=== PATIENT | female | born 1935 | race African-American/Black ===

== ENCOUNTER 2021-12-23 22:40 | Inpatient (IN) | payer MEDICARE ==
[~2021-12-23] VITALS: Ht 154.9 cm; Wt 76.8 kg
[~2021-12-23 22:40] MED LIST: ASCO500T4 PO; ASPI325T8 PO; CARV25TA2 PO; NIFE60TA14 PO; UBID200C30 PO; VALS320T2 PO
[2021-12-23 22:45] VITALS: BP 143/77
[2021-12-24] MEDS ORDERED: PANT40TA77 PO (01:20)
[2021-12-24] MEDS ORDERED: SUCR1TAB35 PO (01:20)
[2021-12-24] MEDS ORDERED: FERR325T14 PO (01:20)
[2021-12-24] MEDS ORDERED: ISOS30TA68 PO (01:22)
[2021-12-24 03:20] VITALS: BP 150/68
[2021-12-24 07:37] VITALS: BP 153/68
--- NOTE | 2021-12-24 08:59 | PDOC1 ---
History and Physical Date of Service: DOS: DATE: 12/24/21 TIME: 08:59 Chief Complaint: Chief Complain: Lower extremity swelling History of Present Illness: HPI: 86-year-old female with past medical history significant for CAD, hypertension, PE and recent sepsis for what seems to be an abdominal abscess. She is transferred from [facility] for bilateral lower extremity swelling. Apparently patient went to and had a drain placed for her abdominal abscess. She does report abdominal tenderness and tightness. She was receiving IV antibiotics as well. Patient is a poor historian. No family member at bedside at this time. According to chart review from [facility] family but was stated that patient was not able to urinate since returning home. No history of CHF but we are consulting cardiology for this reason. Currently only complains of lower extremity swelling and some lower extremity pain. Denies fevers, shortness of breath, dysuria, constipation or syncope. Past Medical/Surgical History: PMH/PSH: Past medical history: CAD, hypertension, MD, PE, recent sepsis with abdominal drain placement for abdominal abscess. Past surgical history: Pacemaker placement, cardiac stent, right knee surgery Allergies: Allergies: Coded Allergies: ceftriaxone (Verified Allergy, Intermediate, Rash, 12/24/21) Family History: Family History: Reviewed with no relevant findings in the chart Social History: Social History: Denies alcohol, tobacco or drug abuse. Current Medications: Current Medications Current Medications Influenza Virus Vaccine Quadrival (Flulaval Quad [id number] Syringe) 0.5 ml ONCE ONCE VAX IM ; Start 12/24/21 at 09:00; Stop 12/24/21 at 09:01 Active Scripts Active Reported Isosorbide Mononitrate Er (Isosorbide Mononitrate) 30 Mg Tab.er.24h 1 Tab PO DAILY Protonix (Pantoprazole Sodium) 40 Mg Tablet.dr 40 Mg PO DAILYAC Carafate (Sucralfate) 1 Gm Tablet 1 Tab PO QIDACHS 30 Days Ferrous Sulfate 325 Mg Tablet 1 Tab PO DAILY 60 Days Coenzyme Q10 (Ubidecarenone) 200 Mg Capsule 200 Mg PO DAILY Nifedipine Er (Nifedipine) 60 Mg Tablet.er 60 Mg PO DAILY Carvedilol 25 Mg Tablet 25 Mg PO BID AC ROS: Review of Systems Review of System REVIEW OF SYSTEMS: GENERAL: Denies weakness SKIN: No bruising, hair changes or rashes. EYES: No blurred, double or loss of vision. NOSE AND THROAT: No history of nosebleeds, hoarseness or sore throat. HEART: No history of palpitations, chest pain or shortness of breath on exertion. LUNGS: Denies cough, hemoptysis, wheezing or shortness of breath. GASTROINTESTINAL: Denies changes in appetite, nausea, vomiting, diarrhea or constipation. GENITOURINARY: No history of frequency, urgency, hesitancy or nocturia. NEUROLOGIC: Denies history of numbness, tingling, or tremor. PSYCHIATRIC: No history of panic, anxiety or depression. ENDOCRINE: No history of heat or cold intolerance, polyuria or polydipsia. EXTREMITIES: Denies joint pain, pain on walking or stiffness. Physical Exam: Vital Signs: Vital Signs Date Time Temp Pulse Resp B/P (MAP) Pulse Ox O2 Delivery O2 Flow Rate FiO2 12/24/21 07:37 98.0 77 18 153/68 (96) 95 Room Air 98.0 Physcial Exam: General: Well developed, well nourished, no acute distress, well appearing HEENT: Pupils equally round and reactive to light, EOMI, no discharge, normal conjunctiva Neck: Supple, no nuchal rigidity, no JVD, trachea midline, no tenderness Cardiac: RRR, no murmurs, no gallops, no rubs Chest/Lungs: CTAB, no wheeze, no rhonchi, no crackles Abdomen: soft, non-distended, no guarding, no peritoneal signs, non-tender Back: No tenderness Extremities: +2 pedal edema in right lower extremity, pulses intact, right lower extremity tenderness and erythema,capillary refill <3 sec bilateral upper and lower extremities, Neuro: Alert and oriented x 4, no focal deficits, normal speech Labs: Labs: Labs reviewed from [facility] significant for creatinine of 1.1, sodium 137, potassium 4.2, BNP at 2273 Images: Images No recent imagings seen in the chart Assessment/Plan Assessment/Plan Acute volume overload of unclear etiology, elevated BNP Abdominal abscess status post abdominal drain Right lower extremity swelling and cellulitis History of hypertension History of PE Admit to hospitalist service for further management Cardiology consult Continue empiric IV antibiotics Pending DVT ultrasound of the right lower extremity Strict I's/O Lovenox for DVT prophylaxis Cardiac diet CODE STATUS assumed full code Discussed with RN and SW Disposition inpatient management as above DPOA: Granddaughter Justifications for Admission Other Justification JYOTI INTERIANO MD Dec 24, 2021 08:59
[2021-12-24] MEDS ORDERED: FLU VACC QUAD 21-22 (6MOS+) PF 0.5 ML SYRINGE. VAX IM ONE (09:00)
[2021-12-24 10:13] VITALS: BP 162/74
--- NOTE | 2021-12-24 11:18 | PDOC2 ---
CARDIAC CONSULT DATE OF CONSULT Date of Consult DATE: 12/24/21 TIME: 11:16 REASON FOR CONSULT Reason for Consult: CHF REFERRING PHYSICIAN Referring Physician: Dr. Mortensen SOURCE Source: Chart review, Patient HISTORY OF PRESENT ILLNESS HISTORY OF PRESENT ILLNESS This is an 86 yo female who presented to [facility] secondary to bila teral LE edema, tightness. 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 Patient was noted with sepsis, bacteremia secondary to iliopsoas abscess in setting of bowel perforation due to cecal mass. Underwent OSKAR drain placement. 4 week treatment with Unasyn recommended. She was also noted with bilateral PE, DVT; noted ; recent discharge summary noted with Lovenox 60mg BID. Was also noted to be COVID-19 + on 11/27/21. Was asymptomatic. Has a history of CAD s/p CABG and SSs s/p PPM. Recent device check noted with RA lead dislodgement. Fortunately, patient was not requiring pacing. Patient reports development of LE edema over the last week. She denies any chest pain, palpitations, dizziness, diaphoresis, or nausea/vomiting. Recent echo showed preserved LV systolic function. PAST MEDICAL HISTORY Cardiovascular: CAD, CHF, HTN GI: GERD Heme/Onc: Other (PE/DVT, cecal mass) PAST SURGICAL HISTORY Past Surgical History: Pacemaker, CABG, Total knee replacement (right ) FAMILY HISTORY Family History: Hypertension SOCIAL HISTORY Smoke: No ALCOHOL: none Drugs: None Lives: Alone ALLERGIES ALLERGIES: Coded Allergies: ceftriaxone (Verified Allergy, Intermediate, Rash, 12/24/21) ROS Review of System 14 point ROS conducted with pertinent positives noted above in HPI PHYSICAL EXAM General: Alert, Oriented X3, Cooperative, No acute distress HEENT: Atraumatic Lungs: Clear to auscultation Heart: Regular rate Abdomen: Soft, No tenderness Extremities: Other (2+ bilateral LE edema ) Skin: No significant lesion Neuro: Normal speech, Sensation intact Psych/Mental Status: Mental status NL, Mood NL MUSCULOSKELETAL: Osteoarthritic changes both hands VITALS/I&O VITALS/I&O: Vital Signs Date Time Temp Pulse Resp B/P (MAP) Pulse Ox O2 Delivery O2 Flow Rate FiO2 12/24/21 10:13 98.1 74 18 162/74 (103) 99 98.1 12/24/21 08:00 Room Air I & O 12/23/21 12/23/21 12/24/21 15:00 23:00 07:00 Intake Total 0 ml Output Total 1100 ml Balance -1100 ml ECHOCARDIOGRAM ECHOCARDIOGRAM 11/28/21 - 2D + DOPPLER ECHO Interpretation Summary The left ventricle is mildly dilated. Predominantly basal septal hypertrophy, but there is mild hypertrophy throughout the left ventricle. The left ventricular systolic function is normal. The visually estimated ejection fraction is 65%. Right ventricular function is not well assessed in this study. There is non-specific thickening of the aortic valve. There is moderate regurgitation. No evidence of stenosis. No obvious mobile vegetation. No pericardial effusion. No previous ECHO for comparison. ASSESSMENT/PLAN ASSESSMENT/PLAN 1. Acute on chronic diastolic CHF; recent echo with preserved LV systolic function as noted above. s/p IV Lasix 2. CAD s/p CABG 2007. clinically stable 3. SSS s/p PPM (Medtronic); device check 11/28/21 with dislodged RA lead. Device reprogrammed to VVI. Outpatient follow up with primary cask maker recommended. Follows with 4. Hypertension; controlled overall 5. Hyperlipidemia; statin 6. Recent COVID-19; + 11/27/21 7. Bilateral PE, DVT; noted 11/28/21; recent discharge summary noted with Lovenox 60mg BID 8. 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 Recent sepsis, bacteremia secondary to iliopsoas abscess in setting of bowel perforation due to cecal mass. s/p OSKAR drain placement. 4 week treatment with Unasyn recommended 10. Hypomagnesemia Recommendations Diuresis with monitoring of renal function Replace Mg Resume secondary prevention Lovenox therapy Supportive care MARIAH RO APRN Dec 24, 2021 11:18
--- NOTE | 2021-12-24 11:35 | NUR ---
SS following for discharge planning. SS reviewed pt chart and discussed with pt RN. Pt is from home and is currently on room air. Cardiology and Wound Care consulted. SS will continue to follow for discharge planning.
[2021-12-24] MEDS ORDERED: MORPHINE SULFATE 2 MG/ML INJ. IVP PRN (14:15)
[2021-12-24] MEDS ORDERED: ZOLPIDEM 5 MG TABLET. PO PRN (14:15)
[2021-12-24] MEDS ORDERED: DOCUSATE SODIUM 100 MG CAPSULE. PO PRN (14:15)
[2021-12-24] MEDS ORDERED: DEXTROSE 50% 25 GM / 50ML DISP.SYRIN. IV PRN (14:15)
[2021-12-24] MEDS ORDERED: SENNOSIDES 8.6 MG TABLET PO PRN (14:15)
[2021-12-24] MEDS ORDERED: ONDANSETRON PF 4 MG/2 ML VIAL. IVP PRN (14:15)
[2021-12-24] MEDS ORDERED: oxyCODONE/APAP 5/325 1 TAB TABLET PO PRN (14:15)
[2021-12-24] MEDS ORDERED: diphenhydrAMINE HCL 25 MG CAPSULE PO PRN ×2 (14:15)
[2021-12-24] MEDS ORDERED: MORPHINE SULFATE 2 MG/ML INJ. IV PRN (14:15)
[2021-12-24] MEDS ORDERED: PROCHLORPERAZINE 10 MG/2 ML VIAL. IV PRN (14:15)
[2021-12-24] MEDS ORDERED: diphenhydrAMINE 50 MG/ML VIAL IVP PRN (14:15)
[2021-12-24] MEDS ORDERED: LORazepam 0.5 MG TABLET PO PRN (14:15)
[2021-12-24] MEDS ORDERED: ACETAMINOPHEN 325 MG TABLET. PO PRN (14:15)
[2021-12-24 14:24] VITALS: BP 144/65
--- NOTE | 2021-12-24 15:19 | RAD ---
EXAMINATION: US DPLX VENOUS EXTREMITY LOWER RT (LOWER EXTREMITY VENOUS ULTRASOUND) CLINICAL HISTORY: Right lower extremity edema. TECHNIQUE: Sonographic grayscale images obtained of the right lower extremity deep venous system with color flow Doppler, compression, and augmentation techniques as indicated. Images obtained and stor ed in a permanent archive. COMPARISON: None FINDINGS: No evidence of absent flow or incompressibility within the common femoral vein, femoral vein, or popl iteal vein. Visualized calf veins appear patent on limited evaluation. IMPRESSION: No evidence of right lower extremity DVT. Electronically signed by: Ajay Muniz DO (12/24/2021 3:16 PM) [id number]
[2021-12-24] MEDS ORDERED: PIPERACILLIN/TAZOBACTAM 2.25 GM in IV NORMAL SALINE 50ML 50 ML IV SCH (16:00)
[2021-12-24] MEDS ORDERED: MAGNESIUM SULFATE 2GM 50 ML IV ONE (16:15)
[2021-12-24] MEDS ORDERED: POTASSIUM CHLORIDE 20 MEQ TABLET.ER. PO ONE (16:15)
[2021-12-24] MEDS ORDERED: FUROSEMIDE 40 MG/4 ML VIAL. IVP ONE (16:15)
[2021-12-24] MEDS: AMPICILLIN/SULBACTAM 3 GM in IV NORMAL SALINE 100ML 100 ML IV SCH (16:39)
--- NOTE | 2021-12-24 16:40 | NUR ---
Unasyn non administered until 0000 dose per recommendation from pharmacy after recent dose of Zosyn
--- NOTE | 2021-12-24 16:50 | NUR ---
Wound/Ostomy Care Wound Type/Assessment: Patient seen per wound care consult. See wound assessment. Patient has a pressure ulcer stage II to right heel. Patient does not know how the wound originated. There is no depth and appears it was a blister at one time that has now deflated. Wound cleansed, assessed, and measured. Treatment Recommendations/Plan: Recommendations for skin prep and foam dressing. Change on Thursday and Thursday. Float heel using pillows, patient stated she has heel medix at home. Education provided: Patient educated on dressing changes, pressure treatment and management and current POC. Offloading surface/device: Patient able to assist with turning and wedge and pillows used for offloading. Recommended Referrals/Tests: N/A Discharge Recommendations for dressings: Dressing change instructions left in room. No other wounds noted. Patient had BM and patient cleaned and brief and chux changed and calazime applied for protection. Bed lowered and call light in reach. Wound care will follow up on 01/02/22.
[2021-12-24] MEDS ORDERED: CARVEDILOL 12.5 MG TABLET. PO SCH (17:00)
[2021-12-24] MEDS ORDERED: PIPERACILLIN/TAZOBACTAM 3.375 GM in IV NORMAL SALINE 50ML 50 ML IV SCH (18:00)
[2021-12-24 19:45] VITALS: BP 135/80
[2021-12-24] MEDS ORDERED: ENOXAPARIN 40 MG/0.4 ML SYRINGE. SQ SCH (21:00)
[2021-12-24] MEDS: METOPROLOL TART IMMED RELEASE 25 MG TABLET. PO SCH (21:45)
[2021-12-24 23:05] VITALS: BP 140/62
[2021-12-25 03:40] VITALS: BP 143/66
[2021-12-25] MEDS: AMPICILLIN/SULBACTAM 3 GM in IV NORMAL SALINE 100ML 100 ML IV SCH ×3 (06:00→12:00)
[2021-12-25] MEDS ORDERED: AMPICILLIN/SULBACTAM 3 GM in IV NORMAL SALINE 100ML 100 ML IV SCH (06:00)
[2021-12-25 07:00] VITALS: BP 165/74
[2021-12-25 07:01] LABS: BASO % 0 % (0-3); CALCIUM 6.9 mg/dL (8.5-10.1); CREATININE 1.2 mg/dL (0.6-1.0); EOS # 0.4 x10^3/uL (0.0-0.7); EOS % 4 % (0-3); GFR 51.8; HEMATOCRIT 22.7 % (36.0-47.0); HEMOGLOBIN 7.5 g/dL (12.0-15.5); LYMPH # 1.2 x10^3/uL (1.0-4.8); LYMPH % 13 % (24-48); MAGNESIUM 1.9 mg/dL (1.8-2.4); MEAN CORPUSCULAR HEMOGLOBIN 27 pg (25-35); MEAN CORPUSCULAR HGB CONC 33 g/dL (31-37); MEAN CORPUSCULAR VOLUME 80 fL (79-100); MONO # 0.4 x10^3/uL (0.0-1.1); MONO % 4 % (0-9); NEUT # 7.3 x10^3/uL (1.8-7.7); NEUT % 79 % (31-73); PHOSPHORUS 3.4 mg/dL (2.6-4.7); PLATELET COUNT 300 x10^3/uL (140-400); POTASSIUM 3.7 mmol/L (3.5-5.1); RED BLOOD COUNT 2.85 x10^6/uL (3.50-5.40); RED CELL DISTRIBUTION WIDTH 24.8 % (11.5-14.5); WHITE BLOOD COUNT 9.2 x10^3/uL (4.0-11.0)
[2021-12-25] MEDS: PANTOPRAZOLE 40 MG TABLET.DR. PO SCH (08:46)
[2021-12-25] MEDS: METOPROLOL TART IMMED RELEASE 25 MG TABLET. PO SCH ×2 (08:47→21:31)
[2021-12-25 09:04] LABS: ANISOCYTOSIS SLIGHT; PLT ESTIMATE ADEQUATE (ADEQUATE)
--- NOTE | 2021-12-25 10:53 | PDOC ---
MARIAH RO CONCRETE FORM SETTER AND FINISHER 12/25/21 1053: CARDIO Progress Notes Date and Time Date of Service 12/25/21 Time of Evaluation 1050 Subjective Subjective: No Chest Pain, No shortness of breath, No Palpitations Vitals Vitals Vital Signs Date Time Temp Pulse Resp B/P (MAP) Pulse Ox O2 Delivery O2 Flow Rate FiO2 12/25/21 08:47 67 165/74 12/25/21 07:00 98.0 20 97 Room Air 98.0 Weight Weight [ ] Input and Output Intake and Output Intake and Output 12/25/21 07:00 Intake Total 300 ml Output Total 1550 ml Balance -1250 ml Intake Oral 100 ml IV Total 200 ml Output Urine Total 1550 ml # Bowel Movements 1 Laboratory Labs Laboratory Tests Test 12/25/21 06:15 White Blood Count 9.2 x10^3/uL (4.0-11.0) Red Blood Count 2.85 x10^6/uL (3.50-5.40) Hemoglobin 7.5 g/dL (12.0-15.5) Hematocrit 22.7 % (36.0-47.0) Mean Corpuscular Volume 80 fL (79-100) Mean Corpuscular Hemoglobin 27 pg (25-35) Mean Corpuscular Hemoglobin Concent 33 g/dL (31-37) Red Cell Distribution Width 24.8 % (11.5-14.5) Platelet Count 300 x10^3/uL (140-400) Neutrophils (%) (Auto) 79 % (31-73) Lymphocytes (%) (Auto) 13 % (24-48) Monocytes (%) (Auto) 4 % (0-9) Eosinophils (%) (Auto) 4 % (0-3) Basophils (%) (Auto) 0 % (0-3) Neutrophils # (Auto) 7.3 x10^3/uL (1.8-7.7) Lymphocytes # (Auto) 1.2 x10^3/uL (1.0-4.8) Monocytes # (Auto) 0.4 x10^3/uL (0.0-1.1) Eosinophils # (Auto) 0.4 x10^3/uL (0.0-0.7) Basophils # (Auto) 0.0 x10^3/uL (0.0-0.2) Platelet Estimate Adequate (ADEQUATE) Anisocytosis Slight Sodium Level 143 mmol/L (136-145) Potassium Level 3.7 mmol/L (3.5-5.1) Chloride Level 110 mmol/L (98-107) Carbon Dioxide Level 22 mmol/L (21-32) Anion Gap 11 (6-14) Blood Urea Nitrogen 8 mg/dL (7-20) Creatinine 1.2 mg/dL (0.6-1.0) Estimated GFR (Cockcroft-Gault) 51.8 Glucose Level 94 mg/dL (70-99) Calcium Level 6.9 mg/dL (8.5-10.1) Phosphorus Level 3.4 mg/dL (2.6-4.7) Magnesium Level 1.9 mg/dL (1.8-2.4) Physical Exam HEENT: Neck Supple W Full Motion Chest: Symmetric LUNGS: Other (diminished bases) Heart: RRR Abdomen: Soft N/T Extremities: Other (1+ bilateral LE edema ) Neurology: alert, oriented, follow commands Assessment Assessment 1. Acute on chronic diastolic CHF; recent echo with preserved LV systolic function as noted above. improved s/p IV Lasix 2. CAD s/p CABG 2007. clinically stable 3. SSS s/p PPM (Medtronic); device check 11/28/21 with dislodged RA lead. Device reprogrammed to VVI. Outpatient follow up with primary turnaround engineer recommended. Follows with . HR remains stable 4. Hypertension; elevated 5. Hyperlipidemia; statin 6. Recent COVID-19; + 11/27/21 7. Bilateral PE, DVT; noted 11/28/21; recent discharge summary noted with Lovenox 60mg BID 8. 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 Recent sepsis, bacteremia secondary to iliopsoas abscess in setting of bowel perforation due to cecal mass. s/p OSKAR drain placement. 4 week treatment with Unasyn recommended 10. Hypomagnesemia; replaced 11. Anemia; hgb 13 At [facility], drift to 7.5 today. No obvious bleeding. D/w Dr. Lopez. Will recheck. Recommendations Will given additional dose of Lasix today Secondary prevention Add amlodipine for BP control Anticoagulation as per IM Supportive care Justicifation of Admission Dx: Justifications for Admission: Justification of Admission Dx: Yes Comments: Acute on chronic diastolic CHF Anemia MATTHEW LI MD 12/25/21 1645: CARDIO Progress Notes Assessment Assessment Patient seen and examined She is feeling better today. I agree with our nurse practitioners assessment and plan Acute on chronic diastolic CHF; recent echo with preserved LV systolic function as noted above. Continues to improve on present treatment. CAD s/p CABG 2007. clinically stable SSS s/p PPM (Medtronic); device check 11/28/21 with dislodged RA lead. Device reprogrammed to VVI. Outpatient follow up with primary turnaround engineer recommended. Follows with . HR remains stable Hypertension; elevated. Adding amlodipine. 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 s/p OSKAR drain placement. 4 week treatment with Unasyn recommended Hypomagnesemia; replaced. Morning magnesium of 1.9. Anemia; hgb 13 At [facility], drift to 7.5 today. No obvious bleeding. MARIAH RO APRN Dec 25, 2021 10:53 MATTHEW LI MD Dec 25, 2021 16:45
[2021-12-25 11:00] VITALS: BP 144/67
--- NOTE | 2021-12-25 13:45 | NUR ---
SS following up with discharge planning. SS reviewed pt chart and discussed with pt RN. Pt is currently on room air. Pt on IV Ampicillin. Cardiology and wound care following. Discharge plan is currently to home when medically ready. SS will continue to follow for discharge planning.
[2021-12-25] MEDS: AMPICILLIN/SULBACTAM 3 GM in IV DEXTROSE 5% 100ML 100 ML IV SCH ×2 (14:41→17:30)
[2021-12-25 15:00] VITALS: BP 169/68
--- NOTE | 2021-12-25 15:10 | PDOC ---
[employer] PROGRESS NOTE Date of Service DOS: DATE: 12/25/21 TIME: 15:09 Chief Complaint Chief Complaint 1. Acute on chronic diastolic CHF; recent echo with preserved LV systolic function as noted above. s/p IV Lasix 2. CAD s/p CABG 2007. clinically stable 3. SSS s/p PPM (Medtronic); device check 11/28/21 with dislodged RA lead. Device reprogrammed to VVI. Outpatient follow up with primary rafter cutting machine operator recommended. Follows with 4. Hypertension; controlled overall 5. Hyperlipidemia; statin 6. Recent COVID-19; + 11/27/21 7. Bilateral PE, DVT; noted 11/28/21; recent discharge summary noted with Lovenox 60mg BID 8. 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 Recent sepsis, bacteremia secondary to iliopsoas abscess in setting of bowel perforation due to cecal mass. s/p OSKAR drain placement. 4 week treatment with Unasyn recommended 10. Hypomagnesemia History of Present Illness History of Present Illness possible hgb drop, but she feels well, and BP is 160 range, Hgb at Outside hospital reported close to 13, would be acute blood loss, will check HR great will recheck hgb, poss iron def. is microcytic, she feels well, no evnet Vitals/I&O Vitals/I&O: Vital Signs Date Time Temp Pulse Resp B/P (MAP) Pulse Ox O2 Delivery O2 Flow Rate FiO2 12/25/21 11:00 97.3 68 20 144/67 (92) 98 Room Air 97.3 I & O 12/24/21 12/24/21 12/25/21 15:00 23:00 07:00 Intake Total 50 ml 250 ml Output Total 250 ml 1300 ml Balance 50 ml -250 ml -1050 ml Physical Exam General: Alert, Oriented X3, Cooperative, No acute distress Heart: Regular rate Abdomen: Soft, No tenderness Extremities: Other (2+ bilateral LE edema ) Skin: No significant lesion Labs Labs: Laboratory Tests Test 12/25/21 06:15 White Blood Count 9.2 x10^3/uL (4.0-11.0) Red Blood Count 2.85 x10^6/uL (3.50-5.40) Hemoglobin 7.5 g/dL (12.0-15.5) Hematocrit 22.7 % (36.0-47.0) Mean Corpuscular Volume 80 fL (79-100) Mean Corpuscular Hemoglobin 27 pg (25-35) Mean Corpuscular Hemoglobin Concent 33 g/dL (31-37) Red Cell Distribution Width 24.8 % (11.5-14.5) Platelet Count 300 x10^3/uL (140-400) Neutrophils (%) (Auto) 79 % (31-73) Lymphocytes (%) (Auto) 13 % (24-48) Monocytes (%) (Auto) 4 % (0-9) Eosinophils (%) (Auto) 4 % (0-3) Basophils (%) (Auto) 0 % (0-3) Neutrophils # (Auto) 7.3 x10^3/uL (1.8-7.7) Lymphocytes # (Auto) 1.2 x10^3/uL (1.0-4.8) Monocytes # (Auto) 0.4 x10^3/uL (0.0-1.1) Eosinophils # (Auto) 0.4 x10^3/uL (0.0-0.7) Basophils # (Auto) 0.0 x10^3/uL (0.0-0.2) Platelet Estimate Adequate (ADEQUATE) Anisocytosis Slight Sodium Level 143 mmol/L (136-145) Potassium Level 3.7 mmol/L (3.5-5.1) Chloride Level 110 mmol/L (98-107) Carbon Dioxide Level 22 mmol/L (21-32) Anion Gap 11 (6-14) Blood Urea Nitrogen 8 mg/dL (7-20) Creatinine 1.2 mg/dL (0.6-1.0) Estimated GFR (Cockcroft-Gault) 51.8 Glucose Level 94 mg/dL (70-99) Calcium Level 6.9 mg/dL (8.5-10.1) Phosphorus Level 3.4 mg/dL (2.6-4.7) Magnesium Level 1.9 mg/dL (1.8-2.4) Comment Review of Relevant I have reviewed the following items rob (where applicable) has been applied. Medications: Current Medications Medications (Trade) Dose Ordered Sig/Mar Route PRN Reason Start Time Stop Time Status Last Admin Dose Admin Pantoprazole Sodium (Protonix) 40 mg DAILYAC PO 12/25/21 07:30 12/25/21 08:46 Carvedilol (Coreg) 25 mg BIDWMEALS PO 12/24/21 17:00 12/24/21 16:01 DC 12/24/21 15:35 Piperacillin Sod/ Tazobactam Sod 2.25 gm/Sodium Chloride 50 ml @ 100 mls/hr Q6HRS IV 12/24/21 16:00 12/24/21 16:18 DC 12/24/21 15:36 Metoprolol Tartrate (Lopressor) 25 mg BID PO 12/24/21 21:00 12/25/21 08:47 Magnesium Sulfate 50 ml @ 25 mls/hr 1X ONCE IV 12/24/21 16:15 12/24/21 18:14 DC 12/24/21 16:46 Furosemide (Lasix) 40 mg 1X ONCE IVP 12/24/21 16:15 12/24/21 16:16 DC 12/24/21 16:45 Potassium Chloride (Klor-Con) 20 meq 1X ONCE PO 12/24/21 16:15 12/24/21 16:16 DC 12/24/21 16:45 Enoxaparin Sodium (Lovenox 60mg Syringe) 60 mg Q12HR SQ 12/24/21 21:00 12/25/21 08:46 Ampicillin Sodium/ Sulbactam Sodium 3 gm/Sodium Chloride 100 ml @ 200 mls/hr Q6HRS IV 12/24/21 18:00 12/25/21 13:00 DC 12/25/21 06:00 Ampicillin Sodium/ Sulbactam Sodium 3 gm/Dextrose 100 ml @ 200 mls/hr Q6HRS IV 12/25/21 13:45 12/25/21 14:41 Justifications for Admission Other Justification Lower extremity swelling CABRERA RAMOS MD Dec 25, 2021 15:10
[2021-12-25 16:41] LABS: HEMATOCRIT 25.3 % (36.0-47.0); HEMOGLOBIN 8.2 g/dL (12.0-15.5); RED BLOOD COUNT 3.18 x10^6/uL (3.50-5.40); RED CELL DISTRIBUTION WIDTH 25.2 % (11.5-14.5); WHITE BLOOD COUNT 11.6 x10^3/uL (4.0-11.0)
[2021-12-25 19:21] VITALS: BP 146/65
[2021-12-25] MEDS ORDERED: LACTOBACILLUS RHAMNOSUS GG 1 CAPSULE. PO SCH (21:00)
[2021-12-25 23:10] VITALS: BP 104/56
[2021-12-26] MEDS: AMPICILLIN/SULBACTAM 3 GM in IV DEXTROSE 5% 100ML 100 ML IV SCH ×2 (00:10→06:17)
[2021-12-26 03:02] VITALS: BP 124/59
[2021-12-26 06:47] LABS: BASO % 0 % (0-3); EOS # 0.3 x10^3/uL (0.0-0.7); EOS % 3 % (0-3); HEMATOCRIT 21.8 % (36.0-47.0); HEMOGLOBIN 7.1 g/dL (12.0-15.5); LYMPH # 1.7 x10^3/uL (1.0-4.8); LYMPH % 14 % (24-48); MEAN CORPUSCULAR HEMOGLOBIN 26 pg (25-35); MEAN CORPUSCULAR HGB CONC 33 g/dL (31-37); MEAN CORPUSCULAR VOLUME 80 fL (79-100); MONO # 0.5 x10^3/uL (0.0-1.1); MONO % 4 % (0-9); NEUT # 10.1 x10^3/uL (1.8-7.7); NEUT % 79 % (31-73); PLATELET COUNT 349 x10^3/uL (140-400); RED BLOOD COUNT 2.72 x10^6/uL (3.50-5.40); RED CELL DISTRIBUTION WIDTH 25.6 % (11.5-14.5); WHITE BLOOD COUNT 12.7 x10^3/uL (4.0-11.0)
[2021-12-26 06:59] LABS: CALCIUM 6.8 mg/dL (8.5-10.1); CREATININE 1.2 mg/dL (0.6-1.0); GFR 51.8; MAGNESIUM 1.9 mg/dL (1.8-2.4); POTASSIUM 3.4 mmol/L (3.5-5.1)
[2021-12-26 07:00] VITALS: BP 115/54
[2021-12-26] MEDS: PANTOPRAZOLE 40 MG TABLET.DR. PO SCH (08:05)
[2021-12-26] MEDS: METOPROLOL TART IMMED RELEASE 25 MG TABLET. PO SCH (08:05)
[2021-12-26 11:00] VITALS: BP 118/57
--- NOTE | 2021-12-26 11:02 | PDOC ---
CARDIO Progress Notes Date and Time Date of Service 12/26/21 Time of Evaluation 1110 Subjective Subjective: No Chest Pain, No shortness of breath, No Palpitations Vitals Vitals Vital Signs Date Time Temp Pulse Resp B/P (MAP) Pulse Ox O2 Delivery O2 Flow Rate FiO2 12/26/21 08:05 86 115/54 12/26/21 07:00 97.8 20 99 Room Air 97.8 Weight Weight [ ] Input and Output Intake and Output Intake and Output 12/26/21 07:00 Intake Total 500 ml Output Total 150 ml Balance 350 ml Intake Oral 100 ml IV Total 400 ml Output Urine Total 150 ml # Bowel Movements 2 Laboratory Labs Laboratory Tests Test 12/25/21 16:17 12/26/21 06:30 White Blood Count 11.6 x10^3/uL (4.0-11.0) 12.7 x10^3/uL (4.0-11.0) Red Blood Count 3.18 x10^6/uL (3.50-5.40) 2.72 x10^6/uL (3.50-5.40) Hemoglobin 8.2 g/dL (12.0-15.5) 7.1 g/dL (12.0-15.5) Hematocrit 25.3 % (36.0-47.0) 21.8 % (36.0-47.0) Mean Corpuscular Volume 80 fL (79-100) 80 fL (79-100) Mean Corpuscular Hemoglobin 26 pg (25-35) 26 pg (25-35) Mean Corpuscular Hemoglobin Concent 32 g/dL (31-37) 33 g/dL (31-37) Red Cell Distribution Width 25.2 % (11.5-14.5) 25.6 % (11.5-14.5) Platelet Count 362 x10^3/uL (140-400) 349 x10^3/uL (140-400) Iron Level 19 ug/dL (50-170) Total Iron Binding Capacity 62 ug/dL (250-450) Iron Saturation 31 % (15-34) Neutrophils (%) (Auto) 79 % (31-73) Lymphocytes (%) (Auto) 14 % (24-48) Monocytes (%) (Auto) 4 % (0-9) Eosinophils (%) (Auto) 3 % (0-3) Basophils (%) (Auto) 0 % (0-3) Neutrophils # (Auto) 10.1 x10^3/uL (1.8-7.7) Lymphocytes # (Auto) 1.7 x10^3/uL (1.0-4.8) Monocytes # (Auto) 0.5 x10^3/uL (0.0-1.1) Eosinophils # (Auto) 0.3 x10^3/uL (0.0-0.7) Basophils # (Auto) 0.0 x10^3/uL (0.0-0.2) Sodium Level 142 mmol/L (136-145) Potassium Level 3.4 mmol/L (3.5-5.1) Chloride Level 110 mmol/L (98-107) Carbon Dioxide Level 22 mmol/L (21-32) Anion Gap 10 (6-14) Blood Urea Nitrogen 7 mg/dL (7-20) Creatinine 1.2 mg/dL (0.6-1.0) Estimated GFR (Cockcroft-Gault) 51.8 Glucose Level 92 mg/dL (70-99) Calcium Level 6.8 mg/dL (8.5-10.1) Magnesium Level 1.9 mg/dL (1.8-2.4) Physical Exam HEENT: Neck Supple W Full Motion Chest: Symmetric LUNGS: Other (diminished bases) Heart: RRR (heart tones regular. Off tele ) Abdomen: Soft N/T Extremities: Other (1+ bilateral LE edema ) Neurology: alert, oriented, follow commands Assessment Assessment 1. Acute on chronic diastolic CHF; recent echo with preserved LV systolic function as noted above. improved s/p IV Lasix. appears compensated 2. CAD s/p CABG 2007. clinically stable. Secondary prevention 3. SSS s/p PPM (Medtronic); device check 11/28/21 with dislodged RA lead. Device reprogrammed to VVI. Outpatient follow up with primary production helper recommended. Follows with . HR remains stable 4. Hypertension; elevated 5. Hyperlipidemia; statin 6. Recent COVID-19; + 11/27/21 7. Bilateral PE, DVT; noted 11/28/21; recent discharge summary noted with Lovenox 60mg BID. anticoagulation presently on hold with anemia. as per IM 8. 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 Recent sepsis, bacteremia secondary to iliopsoas abscess in setting of bowel perforation due to cecal mass. s/p OSKAR drain placement. 4 week treatment with Unasyn recommended 10. Hypomagnesemia; replaced 11. Anemia; hgb drift to 7.1. No obvious bleeding. Justicifation of Admission Dx: Justifications for Admission: Justification of Admission Dx: Yes MARIAH RO APRN Dec 26, 2021 11:02
--- NOTE | 2021-12-26 13:26 | NUR ---
SS following up with discharge planning. SS reviewed pt chart and discussed with pt RN. Pt is currently on room air. Pt on IV Ampicillin. Cardiology and wound care following. PT/OT ordered. SS will continue to follow for discharge planning.
[2021-12-26 14:27] VITALS: BP 115/82
--- NOTE | 2022-01-07 20:38 | PDOC3 ---
[facility]-Discharge Summary Date of Admission: Date of Admission: Dec 24, 2021 Date of Discharge: Date of Discharge: Dec 26, 2021 Hospital Course: Hospital Course: Chief Complaint 1. Acute on chronic diastolic CHF; recent echo with preserved LV systolic function as noted above. s/p IV Lasix 2. CAD s/p CABG 2007. clinically stable 3. SSS s/p PPM ([employer]); device check 11/28/21 with dislodged RA lead. Device reprogrammed to VVI. Outpatient follow up with primary triage registered nurse recommended. Follows with 4. Hypertension; controlled overall 5. Hyperlipidemia; statin 6. Recent COVID-19; + 11/27/21 7. Bilateral PE, DVT; noted 11/28/21; recent discharge summary noted with Lovenox 60mg BID 8. 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 Recent sepsis, bacteremia secondary to iliopsoas abscess in setting of bowel perforation due to cecal mass. s/p OSKAR drain placement. 4 week treatment with Unasyn recommended 10. Hypomagnesemia History of Present Illness History of Present Illness possible hgb drop, but she feels well, and BP is 160 range, Hgb at Outside hospital reported close to 13, would be acute blood loss, will check HR great will recheck hgb, poss iron def. is microcytic, she feels well, no evnet 12/26 Hgb stable. ok for d/c today. greater than 30 min spent on d/c. Disposition: Disposition/Orders: D/C to Home Activity: Activity: Resume previous activity Diet: Diet: Cardiac Medications: Home Meds Reported Medications Isosorbide Mononitrate (ISOSORBIDE MONONITRATE ER) 30 Mg Tab.er.24h, 1 TAB PO DAILY for prevent chest pain, #30 TAB 5 Refills 12/24/21 Pantoprazole Sodium (PROTONIX ) 40 Mg Tablet.dr, 40 MG PO DAILYAC for GERD, TAB 12/24/21 Sucralfate (CARAFATE) 1 Gm Tablet, 1 TAB PO QIDACHS for PUD for 30 Days, #120 TAB 0 Refills 12/24/21 Ferrous Sulfate (FERROUS SULFATE) 325 Mg Tablet, 1 TAB PO DAILY for anemia for 60 Days, #60 TAB 3 Refills 12/24/21 Ubidecarenone (COENZYME Q10) 200 Mg Capsule, 200 MG PO DAILY 6/12/14 Nifedipine (NIFEDIPINE ER) 60 Mg Tablet.er, 60 MG PO DAILY, TAB.SR 04/13/14 Carvedilol (CARVEDILOL) 25 Mg Tablet, 25 MG PO BID AC for Blood Pressure, TAB 04/13/14 Scheduled Carvedilol (Carvedilol), 25 MG PO BID AC, (Reported) Ferrous Sulfate (Ferrous Sulfate), 1 TAB PO DAILY, (Reported) Isosorbide Mononitrate (Isosorbide Mononitrate Er), 1 TAB PO DAILY, (Reported) Nifedipine (Nifedipine Er), 60 MG PO DAILY, (Reported) Pantoprazole Sodium (Protonix ), 40 MG PO DAILYAC, (Reported) Sucralfate (Carafate), 1 TAB PO QIDACHS, (Reported) Ubidecarenone (Coenzyme Q10), 200 MG PO DAILY, (Reported) Justicifation of Admission Dx: Justifications for Admission: Justification of Admission Dx: Yes ADIA SMITH MD Jan 07, 2022 20:38
== END 2021-12-26 19:00 | disposition home or self-care (01) | DRG 602 ==
LOC: 6 SOUTH 22:40
PROVIDERS: ADMIT Student in an Organized Health Care Education/Training Program; ATTEND Student in an Organized Health Care Education/Training Program
DX: L03.115 Cellulitis of right lower limb (principal); I50.33 Acute on chronic diastolic (congestive) heart failure; I11.0 Hypertensive heart disease with heart failure; D64.9 Anemia, unspecified; E78.5 Hyperlipidemia, unspecified; I25.10 Atherosclerotic heart disease of native coronary artery without angina pectoris; I49.5 Sick sinus syndrome; Z96.651 Presence of right artificial knee joint; K21.9 Gastro-esophageal reflux disease without esophagitis; K63.9 Disease of intestine, unspecified; Z82.49 Family history of ischemic heart disease and other diseases of the circulatory system; Z86.16 Personal history of COVID-19; Z86.711 Personal history of pulmonary embolism; Z95.0 Presence of cardiac pacemaker; Z95.1 Presence of aortocoronary bypass graft; Z95.5 Presence of coronary angioplasty implant and graft; Z88.1 Allergy status to other antibiotic agents; Z86.718 Personal history of other venous thrombosis and embolism
CPT/HCPCS: 36415; 80048; 83540; 83550; 83735; 84100; 85025; 85027; 86850; 86900; 86901; 93971; J0295; J1650; J1940; J2543; J3475; J7060; G0378; Q0163

== ENCOUNTER 2022-03-05 22:48 | Inpatient (IN) | payer MEDICARE ==
[~2022-03-05] VITALS: Ht 154.9 cm; Wt 55.5 kg
[2022-03-05 22:15] VITALS: BP 97/59
[2022-03-05 22:30] VITALS: BP 92/63
[2022-03-05 22:45] VITALS: BP 99/69
[~2022-03-05 22:48] MED LIST changes: +FERR325T14 PO; +ISOS30TA68 PO; +PANT40TA77 PO; +SUCR1TAB35 PO
[2022-03-05 23:00] VITALS: BP 90/64
[2022-03-06] VITALS (25 sets, daily range): BP systolic 82–144; BP diastolic 53–102
--- NOTE | 2022-03-06 | NUR ---
Patient admitted to room 106 from [facility]. Patient has lazcano that was placed last Thursday, lazcano bag changed to have gradient. Urine output is low, thick, and mucous like. Patient also came with gastric drain that daughter states is from . Wounds pictured. Patient AOX3, poor historian. Temp low at 94, olive berumen applied. Daughter Karyn called to assist with admission process, she did confirm that patient is a DNR. Dr. Barreto called for admit orders and low UO. Admit orders received.
[2022-03-06 00:20] LABS: BASO % 0 % (0-3); EOS % 0 % (0-3); HEMATOCRIT 27.6 % (36.0-47.0); LYMPH # 1.6 x10^3/uL (1.0-4.8); LYMPH % 18 % (24-48); MEAN CORPUSCULAR HEMOGLOBIN 27 pg (25-35); MEAN CORPUSCULAR HGB CONC 32 g/dL (31-37); MEAN CORPUSCULAR VOLUME 82 fL (79-100); MONO # 0.3 x10^3/uL (0.0-1.1); MONO % 4 % (0-9); NEUT # 6.7 x10^3/uL (1.8-7.7); NEUT % 78 % (31-73); PLATELET COUNT 325 x10^3/uL (140-400); RED BLOOD COUNT 3.39 x10^6/uL (3.50-5.40); RED CELL DISTRIBUTION WIDTH 16.5 % (11.5-14.5); WHITE BLOOD COUNT 8.7 x10^3/uL (4.0-11.0)
[2022-03-06] MEDS: IV DEXTROSE 5 %-0.45 % NACL 1,000 ML IV SCH ×2 (00:20→20:29)
[2022-03-06 00:47] LABS: ALBUMIN 0.8 g/dL (3.4-5.0); ALBUMIN/GLOBULIN RATIO 0.2 (1.0-1.7); CALCIUM 6.6 mg/dL (8.5-10.1); CREATININE 1.6 mg/dL (0.6-1.0); GFR 37.2; MAGNESIUM 1.7 mg/dL (1.8-2.4); TOTAL BILIRUBIN 0.4 mg/dL (0.2-1.0); TOTAL PROTEIN 5.2 g/dL (6.4-8.2)
[2022-03-06 00:52] LABS: POTASSIUM 2.4 mmol/L (3.5-5.1)
[2022-03-06] MEDS: POTASSIUM CHLORIDE 20 MEQ TABLET.ER. PO SCH ×2 (01:16→03:16)
[2022-03-06] MEDS: ANTI-COAG MONITOR BY PHARMACY. MC PRN ×3 (03:39→10:56)
[2022-03-06] MEDS: POTASSIUM CHLORIDE 10MEQ 100 ML IV SCH ×4 (03:53→08:06)
--- NOTE | 2022-03-06 06:44 | NUR ---
patient uncomfortable with ultrasound IV that was placed at [facility], IV does flush, but site appears swollen and it does not have blood return. This RN attemtped for a new site followed by the nursing spine supervisor. At this time we are unable to get a PIV. I spoke with Dr. Barreto about lack of access, orders received for PICC/central line. Daughter Karyn gave consent for central line, order placed, nursing spine supervisor notified.
[2022-03-06] MEDS: MAGNESIUM SULFATE 4GM 100 ML IV SCH (09:18)
[2022-03-06] MEDS ORDERED: POTASSIUM CHLORIDE 20 MEQ TABLET.ER. PO ONE (10:00)
--- NOTE | 2022-03-06 10:01 | CONS ---
DATE OF CONSULTATION: 03/06/2022 PULMONARY CONSULTATION ATTENDING PHYSICIAN: Bjorn Barreto MD REASON FOR CONSULTATION: Pulmonary embolism, pleural effusion. HISTORY OF PRESENT ILLNESS: The patient is an 86-year-old female who has history of coronary artery disease, CHF, hypertension. The patient was hospitalized at [facility] in late November to December when she was noted to have a cecal mass with suspected peritoneal mets. She was also treated for sepsis and bacteremia secondary to iliopsoas abscess in the setting of bowel perforation due to cecal mass. She underwent OSKAR drain. The patient was treated with antibiotics. She was also noted to have bilateral pulmonary embolism and DVT on 11/28/2021. The patient was discharged on Lovenox 60 b.i.d. She was also COVID-19 positive in November. The patient has CAD status post CABG and has permanent pacemaker for sick sinus syndrome. She was brought into the hospital as a transfer from [facility]. The patient was noted to be dyspneic and tachypneic. The patient underwent CT angiogram. I have reviewed the CT chest. She has a segmental pulmonary emboli in the right and left lung. No evidence of right heart strain. She also has moderate bilateral pleural effusions, more on the right than on the left. She has redemonstration of a cecal mass with fistulous connection to the right pelvic sidewall. There is a fluid collection in the right iliac muscle. The patient was started on Lovenox. I have been asked to see her for further evaluation. She denies any chest pain, no shortness of breath. She is not on oxygen. I spoke to the daughter who said that never refilled her Lovenox, as a result she has not been on Lovenox since December. PAST MEDICAL HISTORY: Significant for history of CAD, status post CABG, history of permanent pacemaker, history of CHF, hypertension, history of cecal mass, history of deep venous thrombosis and pulmonary embolism, history of COVID-19. PAST SURGICAL HISTORY: Pacemaker and CABG and total knee. FAMILY HISTORY: Hypertension. SOCIAL HISTORY: Nonsmoker. ALLERGIES: CEFTRIAXONE. REVIEW OF SYSTEMS: A 10-point review of system obtained. Pertinent positives discussed in my present illness, otherwise noncontributory. MEDICATIONS: Reviewed as listed in the MRAD. PHYSICAL EXAMINATION: VITAL SIGNS: Reviewed. She is on room air 96% saturation, afebrile, blood pressure 92 systolic. NECK: Supple. LUNGS: With diminished breath sounds bilaterally. CARDIOVASCULAR: With a regular rate. ABDOMEN: Soft. EXTREMITIES: With no pitting edema. LABORATORY DATA: Reviewed. White cell count 8.7, hemoglobin 9.0 and platelets are 325. Potassium 2.4. Sodium 138. BUN 18 and creatinine 1.6. Albumin is 0.8. IMPRESSION: 1. Pulmonary embolism. 2. This is a patient who was diagnosed with pulmonary embolism and deep venous thrombosis in late November during her hospitalization at . She took Lovenox outpatient until December and then did not receive a refill of her Lovenox from . As a result, she has not been on anticoagulation. She now has a subsegmental pulmonary emboli involving the right and the left lung. No evidence of right heart strain. She will be on lifelong anticoagulation. 3. History of lower extremity deep venous thrombosis. We will follow venous Dopplers. 4. 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 Never had biopsy done. 5. History of bacteremia secondary to iliopsoas abscess in the setting of bowel perforation due to cecal mass. She underwent OSKAR drainage for 4 weeks and was hospitalized at . 6. No significant tobaccoism. 7. Bilateral pleural effusion, more on the right than on the left. Cannot exclude metastasis. Will need thoracentesis. RECOMMENDATIONS: 1. Discussed with Dr. Barreto and discussed with the patient's daughter. At this time, we will switch Lovenox to IV heparin. 2. Thoracentesis by interventional radiology in next 24 hours. 3. She will need lifelong anticoagulation. 4. We will obtain venous Dopplers of lower extremities as well. 5. Consult GI for biopsy of the cecal mass and further recommendations. 6. Empiric antibiotics were started. 7. Discussed with Dr. Barreto, discussed with RN and discussed with the patient's daughter. Chart reviewed, imaging studies reviewed. Total critical care time 45 minutes. RAYMUNDO IVORY: Mulu TID: [id number]
--- NOTE | 2022-03-06 10:09 | HP ---
DATE OF SERVICE: 03/06/2022 ADMIT DATE: 03/05/2022 HISTORY OF PRESENT ILLNESS: The patient is an 86-year-old female patient who presented to the Emergency Room of [facility] with altered mental status. She was brought by EMS from home, declining status. History provided by patient's daughter stating that over the past couple of weeks, she has been refusing to eat, will still drink fluid, having spells where she gazes off and is not responsive. The patient was previously able to get up and ambulate to the restroom with help, but has not been able to do so over the past week. Daughter denies any fever, coughing, vomiting or diarrhea. She has a history of abdominal mass. She has an indwelling drainage catheter that was placed in November and exchanged in December. The patient also has a history of indwelling Figueroa catheter. She apparently was extensively investigated in the Emergency Room of [facility], has had lab work and imaging studies. Her lab work showed that she has normochromic normocytic anemia with normal white cell count and platelets. Her chemistry showed she has profound hypokalemia with a serum potassium of 2.5 and acute versus acute on chronic kidney injury. Her creatinine was 1.7. She has also lactic acidosis with lactic acid of 3.6. She has severe protein-calorie malnutrition with serum albumin of less than 0.9. Her D-dimer was extremely high at 12.59 with slightly elevated prothrombin time and INR. Her D-dimer was high at 12.59. Urinalysis showed that she has a large amount of leukocyte esterase, 20-40 wbc's and many bacteria. Her stool for occult blood was positive and her influenza A and B were negative. Her coronavirus by rapid antigen testing was negative. She did have a chest x-ray, which showed patchy bibasilar airspace disease, atelectasis versus pneumonia. Also, has [id number] bilateral pleural effusion, mildly increased from prior study. CT scan of the chest, abdomen and pelvis with IV contrast showed: 1. The patient has subsegmental pulmonary emboli noted within the right and left lung. No evidence of right heart strain. 2. Moderate bilateral pleural effusion, greater on the right with adjacent atelectasis. 3. Redemonstration of a cecal mass within the fistulous connection to the right pelvic sidewall. There is a fluid collection at the right iliacus muscle measuring approximately 5.7 x 2.5 cm with internal pigtail catheter. Apparently, the patient was started on IV Flagyl and ciprofloxacin, was also given IV fluid and started on Lovenox and was transferred to [facility] for further evaluation and treatment. PAST MEDICAL HISTORY: Significant for coronary artery disease, congestive heart failure, hypertension, gastroesophageal reflux disease. She has history of pulmonary emboli, DVT and cecal mass. PAST SURGICAL HISTORY: Significant for right total knee arthroplasty, coronary artery bypass graft surgery, permanent pacemaker placement and placement of a drain to the right lower quadrant abscess. FAMILY HISTORY: Positive for hypertension. SOCIAL HISTORY: She lives with her daughter and grandson. She does not smoke, drink alcohol or use any recreational drugs. ALLERGIES: SHE IS ALLERGIC TO CEFTRIAXONE. MEDICATIONS: She is currently on the following medications: She is on ferrous sulfate 325 mg daily, isosorbide mononitrate 30 mg once a day, carvedilol 25 mg twice a day, nifedipine 60 mg extended release once a day, sucralfate 1 gram 4 times a day before meals and bedtime. She is on Protonix 40 mg once a day and CoQ10 one capsule once a day. PHYSICAL EXAMINATION: GENERAL: On arrival to the Emergency Room of [facility], the patient was actually alert, oriented x3. She was somewhat pale, cachectic, but not jaundiced or cyanosed, no lymphadenopathy, no thyromegaly, no jugular venous distention, but bilateral lower extremity edema. VITAL SIGNS: Her heart rate was 103, blood pressure was 91/64, temperature was 98, respiratory rate was 16 and oxygen saturation was 95% on room air. HEAD, EYES, EARS, NOSE, AND THROAT: Normocephalic, atraumatic. NECK: Supple. HEART: Showed normal first and second heart sounds. No gallop or murmur. CHEST: Shows central trachea, equal bilateral chest expansion air entry, vesicular breath sounds. I could not appreciate any crepitation or rhonchi anteriorly. She has dull percussion note and absent breath sounds on the right side posteriorly. ABDOMEN: Scaphoid, soft, nontender. She has a drain in the right lower quadrant, bowel sounds are normal. NEUROLOGIC: She was awake, alert, responding appropriately. All cranial nerves intact. Markedly swollen lower extremities; however, according to her daughter, she is mostly bedbound. LABORATORY DATA: On arrival to the Emergency Room showed a white cell count 7.6, hemoglobin 10.5, hematocrit 32, MCV 84 and platelet count 360,000. Her prothrombin time was 12.1, INR 1.2. D-dimer was 12.59. Serum sodium was 144, potassium 2.5, chloride 99, bicarbonate 34, anion gap of 11, BUN 19, creatinine 1.7. Estimated GFR was 34 mL per minute. Her glucose was 116. Lactic acid was 3.6, calcium was 6.8. Total bilirubin, AST, ALT, alkaline phosphatase were normal. Serum ammonia was 21. Troponin I high sensitivity was 31. Total protein was 5.1, albumin was 0.9, urine was yellow, cloudy with a pH of 7.5, specific gravity 1.015, small amount of protein. The urine was negative for glucose, ketones, moderate amount of blood, large amount of leukocyte esterase, 6-10 rbc's, 20-40 wbc's and many bacteria. Her stool for occult blood was positive and influenza A and B as well as coronavirus by rapid antigen testing were negative. ASSESSMENT AND PLAN: The patient was transferred to [facility] with severe hypokalemia, hypomagnesemia, bilateral pleural effusion, urinary tract infection and bilateral pulmonary emboli. She has an abdominal abscess, when drained and the cecal mass. We will consult the junior web designer, Infectious Disease specialist and manager core. We will replenish her potassium. I am not sure that we need to give her more fluid. MARGAUX/BEATRICE DR: Miguel TID: [id number]
--- NOTE | 2022-03-06 10:50 | NUR ---
WOUND CARE: Attempted to see patient for wound care. Prepping patient for bedside procedure. Wound care will see patient tomorrow.
--- NOTE | 2022-03-06 11:04 | PN ---
DATE: 03/06/2022 SUBJECTIVE: The patient is sitting up comfortably in bed, in no apparent distress. She is apparently more awake, alert. On questioning her, she denied any complaint, in particular, denied any chest pain, shortness of breath, cough, phlegm, fever. Denied any chills or rigor. PHYSICAL EXAMINATION: GENERAL: When I examined her, she looked pale, cachectic, but not jaundiced, cyanosed. No thyromegaly. No jugular venous distention. She has bilateral lower limb edema. VITAL SIGNS: Her heart rate was 87, blood pressure was 92/53, temperature was 98.5, respiratory rate was 14 and oxygen saturation was 96% on room air. HEAD, EYES, EARS, NOSE, AND THROAT: Normocephalic, atraumatic. NECK: Supple. HEART: Showed normal first and second heart sounds. No gallop or murmur. CHEST: Clear to auscultation. Chest shows central trachea, equal bilateral chest expansion, air entry, vesicular breath sounds. No crepitation or rhonchi anteriorly. She has dull percussion noted and absent breath sounds on the right side posteriorly. ABDOMEN: Soft, nontender. NEUROLOGIC: She is awake, alert, responding appropriately. All her cranial nerves intact. She moves upper extremities to much good extent than lower extremities. She is mostly bedbound. She has marked swelling of both legs. LABORATORY DATA: Her white cell count was 8.7, hemoglobin 9, hematocrit 27, MCV 82 and platelet count 325,000. His serum sodium was 138, potassium 2.4. chloride 99, bicarbonate 31, anion gap of 8, BUN 18, creatinine 1.6. Estimated GFR was 37 mL per minute. Her glucose 130, calcium was 6.6, magnesium was 1.7. Total bilirubin, AST, ALT, alkaline phosphatase were normal. Total protein 5.2, albumin was 0.8. ASSESSMENT AND PLAN: In summary, this is an 86-year-old female patient who was transferred to [facility] with: 1. Altered mental status. The patient is now actually more awake, alert, responding appropriately. 2. Profound hypokalemia with a potassium of 2.5. 3. Acute on chronic kidney injury. 4. Urinary tract infection. 5. Hypomagnesemia. 6. Bilateral pleural effusion, more on the right than left. 7. Cecal mass and the right iliopsoas abscess, status post drainage. 8. COVID-19 infection in November with bilateral deep venous thrombosis and pulmonary embolism. 9. Her D-dimer was extremely high at 12.[address] angio of the chest showed bilateral pulmonary emboli, for which she was started on Lovenox. 10. Urinary tract infection. The patient is currently on ciprofloxacin and Flagyl. I started her also on Lovenox for deep venous thrombosis prophylaxis and I have consulted the pinking sewing machine operator, Infectious Disease specialist and we will decide on further management accordingly. [facility] [place]: Miguel TID: [id number]
--- NOTE | 2022-03-06 12:17 | RAD ---
Single AP view of the chest. Comparison: None. Indication: PICC line placement Findings: Left-sided PICC line is seen with the tip in the proximal left brachiocephalic vein. Sternotomy wires and CABG clips are seen. Left subclavian pacemaker is identified. Leads overlying the right atrium a nd ventricle. The heart is at the upper limits of normal. There is no pneumothorax or effusion. No a ir space or interstitial disease. Impression: 1. Left-sided PICC line appears to be in the proximal left brachiocephalic vein. Electronically signed by: Lucho Ruiz MD (03/06/2022 12:14 PM) [id number]
--- NOTE | 2022-03-06 12:28 | NUR ---
PICC line placed in L upper arm. Triple lumen. Trouble advancing, blood return at 8cm rob exposed. RN discussed with Dr. Mendes. No options in Right arm. Trouble advancing past pacemaker wires. MD advised RN to obtain central line. Spoke with Dr. Jean Baptiste and notified him of need of triple lumen central line. States he will place IJ at bedside today. PICC remains taped in place in L arm. RN will remove when central line is placed.
[2022-03-06 12:33] LABS: ALBUMIN 0.8 g/dL (3.4-5.0); ALBUMIN/GLOBULIN RATIO 0.2 (1.0-1.7); CALCIUM 6.7 mg/dL (8.5-10.1); CREATININE 1.5 mg/dL (0.6-1.0); POTASSIUM 4.4 mmol/L (3.5-5.1); TOTAL BILIRUBIN 0.3 mg/dL (0.2-1.0); TOTAL PROTEIN 4.7 g/dL (6.4-8.2)
[2022-03-06 13:26] LABS: HEMATOCRIT 24.8 % (36.0-47.0); HEMOGLOBIN 8.3 g/dL (12.0-15.5); RED BLOOD COUNT 3.05 x10^6/uL (3.50-5.40); RED CELL DISTRIBUTION WIDTH 16.6 % (11.5-14.5); WHITE BLOOD COUNT 8.5 x10^3/uL (4.0-11.0)
--- NOTE | 2022-03-06 14:41 | CONS ---
DATE OF CONSULTATION: 03/06/2022 REFERRING PHYSICIAN: Bjorn Barreto MD REASON FOR CONSULTATION: Antibiotic management. HISTORY OF PRESENT ILLNESS: An 86-year-old female with multiple medical problems who presented to [facility] with shortness of breath. The patient underwent CT angiogram. CT chest showed segmental pulmonary emboli in the right and the left lung. The patient had redemonstration of the cecal mass with fistulous connection to the right pelvic sidewall. The patient has drain in place. There is also fluid collection in the right iliac muscle. The patient is unable to tell me when the drain was placed. It appears that she had it placed at [facility] as per our team. The patient underwent CT chest at [facility] in November, which showed small bilateral pleural effusion with overlying volume losses. Few pulmonary nodules are identified, but not overly concerning for metastatic disease. The patient also had a CT of the abdomen and pelvis, which showed large colonic mass centered around the ileocecal junction measuring about 8 x 6 x 5.5 cm. There is also mass-like expansion of the right iliacus muscle with heterogeneous density and surrounding fat stranding that extends upward along the psoas and downward to the lesser trochanter insertion. Malignant perforation with intramuscular abscess formation; however, there is no extra colonic gas formation. The patient also could have mucinous neoplasm as a tubular mass with intermixed mineralization medial to the cecum, which measures about 3.9 x 1.7 x 1.9 cm. Several enlarged lymph node. No findings to suggest metastatic disease of the upper abdomen. Uterine fibroids noted. There is a small volume free fluid and small cystic area at the right adnexa. The patient was started on Lovenox. The patient was transferred to [facility] for further evaluation and treatment. The patient is currently on Cipro and Flagyl. The patient denies any fevers, chills, chest pain, shortness of breath, headache, nausea, vomiting, diarrhea, abdominal pain. She is unable to tell me how long the drain has been in place. PAST MEDICAL HISTORY: Coronary artery disease, CABG, history of pacemaker in place, hypertension, CHF, cecal mass. Appears the patient has workup done at [facility], details of which are not available at this time. History of DVT and PE, history of COVID-19. PAST SURGICAL HISTORY: CABG, pacemaker, iliacus drain on the right side. FAMILY HISTORY: As per HPI. SOCIAL HISTORY: Nonsmoker, no alcohol. ALLERGIES: CEFTRIAXONE, UNABLE TO GIVE DETAILS. CURRENT MEDICATIONS: Cipro and Flagyl. Other medications reviewed in medication list. REVIEW OF SYSTEMS: Limited, but negative except for above in HPI. PHYSICAL EXAMINATION: VITAL SIGNS: Temperature 98.5, pulse 87, respiratory rate 14, blood pressure 92/53, oxygen saturation 96% on room air. GENERAL: Alert, awake, comfortable female, lying in bed, cachectic, chronically ill-appearing, in no acute distress. HEENT: Normocephalic, atraumatic. Anicteric. No thrush. NECK: Supple. LUNGS: Decreased breath sounds at the bases. No wheezing. HEART: S1, S2. No gallops, no murmurs. ABDOMEN: Soft, nontender, nondistended. Right iliac drain with greenish mckinney drainage. EXTREMITIES: No edema, no cyanosis. CENTRAL NERVOUS SYSTEM: Alert, awake. PSYCHIATRIC: Calm and cooperative. LINES: PIV clean. Awaiting central line placement. Left-sided PICC line. LABORATORY DATA: WBC 8.5, hemoglobin 8.3, hematocrit 24.8, platelets 326. Sodium 139, potassium 4.4, chloride 101, bicarbonate 31, BUN 19, creatinine 1.5, magnesium 2.9, glucose 124. Total protein 4.7, albumin 0.8. IMAGING: Chest x-ray revealed left-sided PICC line appears to be in proximal left brachiocephalic vein, left-sided pacemaker. IMPRESSION: 1. Bilateral pulmonary embolism. 2. Electrolyte imbalance. 3. Intraabdominal abscess with a cecal mass around the ileocecal junction with mass-like expansion in the right iliacus muscle. Details are unavailable from . 4. Coronary artery disease, status post coronary artery bypass grafting. 5. Status post permanent pacemaker. 6. History of congestive heart failure, hypertension. 7. History of COVID-19. 8. HISTORY OF ALLERGIES TO CEFTRIAXONE. RECOMMENDATIONS: 1. Continue Cipro and Flagyl. 2. Monitor labs and cultures. 3. Obtain records from [facility] for our review here. 4. Drain management as directed. 5. link trainer maintenance worker. 6. Pulmonary team following. 7. Continue supportive care. Thank you, Dr. Barreto, for consulting Infectious Disease to participate in this patient's care. If you have any questions, do not hesitate to contact me. Discussed with nursing staff. ARIAS/MELISSA/RUPERTO DR: Hill TID: [id number]
[2022-03-06] MEDS ORDERED: HEPARIN for IV BOLUS 10,000 UNIT/10 ML VIAL. IV PRN ×2 (20:00)
[2022-03-06] MEDS ORDERED: HEPARIN 25,000UTS/250ML PREMIX 250 ML IV PRN (20:00)
[2022-03-06] MEDS: LACTOBACILLUS RHAMNOSUS GG 1 CAPSULE. PO SCH (20:25)
[2022-03-06] MEDS ORDERED: CIPROFLOXACIN 400MG PREMIX 200 ML IV SCH (21:00)
[2022-03-07] VITALS (18 sets, daily range): BP systolic 94–128; BP diastolic 56–85
[2022-03-07] MEDS: MAGNESIUM SULFATE 4GM 100 ML IV SCH (09:00)
[2022-03-07 09:30] LABS: HEMOGLOBIN 7.8 g/dL (12.0-15.5); RED BLOOD COUNT 2.83 x10^6/uL (3.50-5.40); RED CELL DISTRIBUTION WIDTH 16.7 % (11.5-14.5); WHITE BLOOD COUNT 7.3 x10^3/uL (4.0-11.0)
[2022-03-07] MEDS: ANTI-COAG MONITOR BY PHARMACY. MC PRN ×2 (09:34→22:10)
[2022-03-07 09:52] LABS: ALBUMIN 0.8 g/dL (3.4-5.0); ALBUMIN/GLOBULIN RATIO 0.2 (1.0-1.7); CALCIUM 6.7 mg/dL (8.5-10.1); CREATININE 1.6 mg/dL (0.6-1.0); GFR 37.2; POTASSIUM 3.7 mmol/L (3.5-5.1); TOTAL BILIRUBIN 0.3 mg/dL (0.2-1.0); TOTAL PROTEIN 4.7 g/dL (6.4-8.2)
--- NOTE | 2022-03-07 10:53 | NUR ---
1030 Bedside thoracentesis w liter of serous liquid removed. Tolerated well w minimal discomfort.Specimens to lab as ordered. Incontinent HUGE stool when turned for procedure. Assist clean multiple personnel w necessary linen change. Communication by DR Larios per phone w daughter Karyn on prospect of "hospice care". Reported neither she or her mom are "Ready"for that at this time.Dr Marques let her know she would be informed of test results on fluids from procedure. when available
--- NOTE | 2022-03-07 11:06 | PDOC ---
PULMONARY PROGRESS NOTES DATE: 03/07/22 TIME: 10:58 Subjective Patient denies any shortness of breath. Status post thoracentesis. Vitals Vital Signs Date Time Temp Pulse Resp B/P (MAP) Pulse Ox O2 Delivery O2 Flow Rate FiO2 03/07/22 09:00 80 30 125/72 (89) 96 Room Air 03/07/22 07:00 97.0 97.0 General: Alert, No acute distress Lungs: Other (Decreased breath sounds at the bases.) Cardiovascular: S1 Abdomen: Soft Neuro Exam: Alert Extremities: No Edema Skin: Warm Labs Laboratory Tests Test 03/05/22 23:55 03/06/22 11:45 03/07/22 01:55 03/07/22 09:10 White Blood Count 8.7 x10^3/uL (4.0-11.0) 8.5 x10^3/uL (4.0-11.0) 7.3 x10^3/uL (4.0-11.0) Red Blood Count 3.39 x10^6/uL (3.50-5.40) 3.05 x10^6/uL (3.50-5.40) 2.83 x10^6/uL (3.50-5.40) Hemoglobin 9.0 g/dL (12.0-15.5) 8.3 g/dL (12.0-15.5) 7.8 g/dL (12.0-15.5) Hematocrit 27.6 % (36.0-47.0) 24.8 % (36.0-47.0) 23.0 % (36.0-47.0) Mean Corpuscular Volume 82 fL (79-100) 82 fL (79-100) 81 fL (79-100) Mean Corpuscular Hemoglobin 27 pg (25-35) 27 pg (25-35) 28 pg (25-35) Mean Corpuscular Hemoglobin Concent 32 g/dL (31-37) 33 g/dL (31-37) 34 g/dL (31-37) Red Cell Distribution Width 16.5 % (11.5-14.5) 16.6 % (11.5-14.5) 16.7 % (11.5-14.5) Platelet Count 325 x10^3/uL (140-400) 326 x10^3/uL (140-400) 304 x10^3/uL (140-400) Neutrophils (%) (Auto) 78 % (31-73) Lymphocytes (%) (Auto) 18 % (24-48) Monocytes (%) (Auto) 4 % (0-9) Eosinophils (%) (Auto) 0 % (0-3) Basophils (%) (Auto) 0 % (0-3) Neutrophils # (Auto) 6.7 x10^3/uL (1.8-7.7) Lymphocytes # (Auto) 1.6 x10^3/uL (1.0-4.8) Monocytes # (Auto) 0.3 x10^3/uL (0.0-1.1) Eosinophils # (Auto) 0.0 x10^3/uL (0.0-0.7) Basophils # (Auto) 0.0 x10^3/uL (0.0-0.2) Sodium Level 138 mmol/L (136-145) 139 mmol/L (136-145) 139 mmol/L (136-145) Potassium Level 2.4 mmol/L (3.5-5.1) 4.4 mmol/L (3.5-5.1) 3.7 mmol/L (3.5-5.1) Chloride Level 99 mmol/L (98-107) 101 mmol/L (98-107) 103 mmol/L (98-107) Carbon Dioxide Level 31 mmol/L (21-32) 31 mmol/L (21-32) 30 mmol/L (21-32) Anion Gap 8 (6-14) 7 (6-14) 6 (6-14) Blood Urea Nitrogen 18 mg/dL (7-20) 19 mg/dL (7-20) 18 mg/dL (7-20) Creatinine 1.6 mg/dL (0.6-1.0) 1.5 mg/dL (0.6-1.0) 1.6 mg/dL (0.6-1.0) Estimated GFR (Cockcroft-Gault) 37.2 40.0 37.2 BUN/Creatinine Ratio 11 (6-20) 13 (6-20) 11 (6-20) Glucose Level 130 mg/dL (70-99) 124 mg/dL (70-99) 122 mg/dL (70-99) Calcium Level 6.6 mg/dL (8.5-10.1) 6.7 mg/dL (8.5-10.1) 6.7 mg/dL (8.5-10.1) Magnesium Level 1.7 mg/dL (1.8-2.4) 2.9 mg/dL (1.8-2.4) Total Bilirubin 0.4 mg/dL (0.2-1.0) 0.3 mg/dL (0.2-1.0) 0.3 mg/dL (0.2-1.0) Aspartate Amino Transf (AST/SGOT) 26 U/L (15-37) 22 U/L (15-37) 24 U/L (15-37) Alanine Aminotransferase (ALT/SGPT) 16 U/L (14-59) 18 U/L (14-59) 18 U/L (14-59) Alkaline Phosphatase 90 U/L (46-116) 88 U/L (46-116) 90 U/L (46-116) Total Protein 5.2 g/dL (6.4-8.2) 4.7 g/dL (6.4-8.2) 4.7 g/dL (6.4-8.2) Albumin 0.8 g/dL (3.4-5.0) 0.8 g/dL (3.4-5.0) 0.8 g/dL (3.4-5.0) Albumin/Globulin Ratio 0.2 (1.0-1.7) 0.2 (1.0-1.7) 0.2 (1.0-1.7) Heparin Anti-Xa Act, Unfractionated 0.81 IU/mL (0.30-0.70) Laboratory Tests Test 03/06/22 11:45 03/07/22 01:55 03/07/22 09:10 White Blood Count 8.5 x10^3/uL (4.0-11.0) 7.3 x10^3/uL (4.0-11.0) Red Blood Count 3.05 x10^6/uL (3.50-5.40) 2.83 x10^6/uL (3.50-5.40) Hemoglobin 8.3 g/dL (12.0-15.5) 7.8 g/dL (12.0-15.5) Hematocrit 24.8 % (36.0-47.0) 23.0 % (36.0-47.0) Mean Corpuscular Volume 82 fL (79-100) 81 fL (79-100) Mean Corpuscular Hemoglobin 27 pg (25-35) 28 pg (25-35) Mean Corpuscular Hemoglobin Concent 33 g/dL (31-37) 34 g/dL (31-37) Red Cell Distribution Width 16.6 % (11.5-14.5) 16.7 % (11.5-14.5) Platelet Count 326 x10^3/uL (140-400) 304 x10^3/uL (140-400) Sodium Level 139 mmol/L (136-145) 139 mmol/L (136-145) Potassium Level 4.4 mmol/L (3.5-5.1) 3.7 mmol/L (3.5-5.1) Chloride Level 101 mmol/L (98-107) 103 mmol/L (98-107) Carbon Dioxide Level 31 mmol/L (21-32) 30 mmol/L (21-32) Anion Gap 7 (6-14) 6 (6-14) Blood Urea Nitrogen 19 mg/dL (7-20) 18 mg/dL (7-20) Creatinine 1.5 mg/dL (0.6-1.0) 1.6 mg/dL (0.6-1.0) Estimated GFR (Cockcroft-Gault) 40.0 37.2 BUN/Creatinine Ratio 13 (6-20) 11 (6-20) Glucose Level 124 mg/dL (70-99) 122 mg/dL (70-99) Calcium Level 6.7 mg/dL (8.5-10.1) 6.7 mg/dL (8.5-10.1) Magnesium Level 2.9 mg/dL (1.8-2.4) Total Bilirubin 0.3 mg/dL (0.2-1.0) 0.3 mg/dL (0.2-1.0) Aspartate Amino Transf (AST/SGOT) 22 U/L (15-37) 24 U/L (15-37) Alanine Aminotransferase (ALT/SGPT) 18 U/L (14-59) 18 U/L (14-59) Alkaline Phosphatase 88 U/L (46-116) 90 U/L (46-116) Total Protein 4.7 g/dL (6.4-8.2) 4.7 g/dL (6.4-8.2) Albumin 0.8 g/dL (3.4-5.0) 0.8 g/dL (3.4-5.0) Albumin/Globulin Ratio 0.2 (1.0-1.7) 0.2 (1.0-1.7) Heparin Anti-Xa Act, Unfractionated 0.81 IU/mL (0.30-0.70) Medications Active Scripts Medications Dose Route/Sig Max Daily Dose Days Date Category Isosorbide Mononitrate Er (Isosorbide Mononitrate) 30 Mg Tab.er.24h 1 Tab PO DAILY 12/24/21 Reported Protonix (Pantoprazole Sodium) 40 Mg Tablet.dr 40 Mg PO DAILYAC 12/24/21 Reported Carafate (Sucralfate) 1 Gm Tablet 1 Tab PO QIDACHS 30 12/24/21 Reported Ferrous Sulfate 325 Mg Tablet 1 Tab PO DAILY 60 12/24/21 Reported Coenzyme Q10 (Ubidecarenone) 200 Mg Capsule 200 Mg PO DAILY 04/13/14 Reported Nifedipine Er (Nifedipine) 60 Mg Tablet.er 60 Mg PO DAILY 04/13/14 Reported Carvedilol 25 Mg Tablet 25 Mg PO BID AC 04/13/14 Reported Impression . 1. Acute pulmonary embolism. 2. This is a patient who was diagnosed with pulmonary embolism and deep venous thrombosis in late November during her hospitalization at . She took Lovenox outpatient until December and then did not receive a refill of her Lovenox from . As a result, she has not been on anticoagulation. She now has a subsegmental pulmonary emboli involving the right and the left lung. No evidence of right heart strain. She will be on lifelong anticoagulation. 3. History of lower extremity deep venous thrombosis. We will follow venous Dopplers. 4. 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 Never had biopsy done. 5. History of bacteremia secondary to iliopsoas abscess in the setting of bowel perforation due to cecal mass. She underwent OSKAR drainage for 4 weeks and was hospitalized at . 6. No significant tobaccoism. 7. Bilateral pleural effusion, more on the right than on the left. Cannot exclude metastasis. Status post right thoracentesis. 8. Severe protein calorie malnutrition. Plan . 1. Stable pulmonary status. 2. Status post thoracentesis. We will follow the results especially cytology to rule out malignant effusion. 3. She will need lifelong anticoagulation. 4. We will obtain venous Dopplers of lower extremities as well. 5. Consult GI for biopsy of the cecal mass and further recommendations. 6. Empiric antibiotics were started. 7. Discussed with Dr. Barreto, discussed with RN. We will reach out to patient's daughter again and discussed the goals of care . Addendum;. Discussed with patient's daughter. At this point she is not interested in having cecal mass biopsy. Her goal is to improve her nutritional status and follow on the results of thoracentesis fluid to make sure is not r elated to cancer. I told her that we will be switching her to oral anticoagulation and she will remain on lifelong anticoagulation. QUYEN JOHNS MD March 07, 2022 11:06
[2022-03-07] MEDS: IV DEXTROSE 5 %-0.45 % NACL 1,000 ML IV SCH ×2 (12:39→16:00)
[2022-03-07] MEDS: LACTOBACILLUS RHAMNOSUS GG 1 CAPSULE. PO SCH ×2 (12:49→21:00)
--- NOTE | 2022-03-07 13:28 | PDOC ---
Infectious Disease Note Subjective Subjective pt is feeling good says EVELYN RIVAS no n/v/d Vital Sign Vital Signs Vital Signs Date Time Temp Pulse Resp B/P (MAP) Pulse Ox O2 Delivery O2 Flow Rate FiO2 03/07/22 12:00 Room Air 03/07/22 09:00 80 30 125/72 (89) 96 03/07/22 07:00 97.0 97.0 Physical Exam PHYSICAL EXAM GENERAL: Alert, awake, comfortable female, lying in bed, cachectic, chronically ill-appearing, in no acute distress. HEENT: Normocephalic, atraumatic. Anicteric. No thrush. NECK: Supple. LUNGS: Decreased breath sounds at the bases. No wheezing. HEART: S1, S2. No gallops, no murmurs. ABDOMEN: Soft, nontender, nondistended. Right iliac drain with greenish mckinney drainage. EXTREMITIES: No edema, no cyanosis. CENTRAL NERVOUS SYSTEM: Alert, awake. PSYCHIATRIC: Calm and cooperative. LINES: PIV clean. Awaiting central line placement. Left-sided PICC line. Labs Lab Laboratory Tests Test 03/07/22 01:55 03/07/22 09:10 Heparin Anti-Xa Act, Unfractionated 0.81 IU/mL (0.30-0.70) White Blood Count 7.3 x10^3/uL (4.0-11.0) Red Blood Count 2.83 x10^6/uL (3.50-5.40) Hemoglobin 7.8 g/dL (12.0-15.5) Hematocrit 23.0 % (36.0-47.0) Mean Corpuscular Volume 81 fL (79-100) Mean Corpuscular Hemoglobin 28 pg (25-35) Mean Corpuscular Hemoglobin Concent 34 g/dL (31-37) Red Cell Distribution Width 16.7 % (11.5-14.5) Platelet Count 304 x10^3/uL (140-400) Sodium Level 139 mmol/L (136-145) Potassium Level 3.7 mmol/L (3.5-5.1) Chloride Level 103 mmol/L (98-107) Carbon Dioxide Level 30 mmol/L (21-32) Anion Gap 6 (6-14) Blood Urea Nitrogen 18 mg/dL (7-20) Creatinine 1.6 mg/dL (0.6-1.0) Estimated GFR (Cockcroft-Gault) 37.2 BUN/Creatinine Ratio 11 (6-20) Glucose Level 122 mg/dL (70-99) Calcium Level 6.7 mg/dL (8.5-10.1) Total Bilirubin 0.3 mg/dL (0.2-1.0) Aspartate Amino Transf (AST/SGOT) 24 U/L (15-37) Alanine Aminotransferase (ALT/SGPT) 18 U/L (14-59) Alkaline Phosphatase 90 U/L (46-116) Total Protein 4.7 g/dL (6.4-8.2) Albumin 0.8 g/dL (3.4-5.0) Albumin/Globulin Ratio 0.2 (1.0-1.7) Objective Assessment IMPRESSION: 1. Bilateral pulmonary embolism. 2. Electrolyte imbalance. 3. Intraabdominal abscess with a cecal mass around the ileocecal junction with mass-like expansion in the right iliacus muscle. Details are unavailable from [facility]. 4. Coronary artery disease, status post coronary artery bypass grafting. 5. Status post permanent pacemaker. 6. History of congestive heart failure, hypertension. 7. History of COVID-19. 8. HISTORY OF ALLERGIES TO CEFTRIAXONE. 9 BC + with G + cocci Plan Plan of Care cont cipro and flagyl add daptomycin prognosis poor MARCELINO EDDY MD March 07, 2022 13:28
[2022-03-07] MEDS ORDERED: DAPTOmycin (GENERIC) IVPB 330 MG in IV NORMAL SALINE 50ML 50 ML IV SCH (13:45)
--- NOTE | 2022-03-07 13:51 | RAD ---
Left lower extremity venous Doppler dated 03/07/2022 1:47 PM COMPARISON: none. CLINICAL INDICATION: Pain Reason: leg pain / Spl. Instructions: / History: FINDINGS: Grayscale, color-flow and spectral waveform analysis performed to include the deep venous system of b ilateral lower extremity. There is nonocclusive filling defect within the right superficial femoral v ein proximally. There is also occlusive filling defect within the profundus femoris vein on the left. The veins are otherwise patent. There is a prominent popliteal cyst on the left that measures up to 2.9 cm. IMPRESSION: 1. Study is positive for deep vein thrombosis involving the proximal superficial femoral vein on the right and the profundus femoris vein on the left. 2. No evidence of distal DVT. 3. Small popliteal cyst on the left. Electronically signed by: Nathan Zavala MD (03/07/2022 1:49 PM) OCT[facility]
--- NOTE | 2022-03-07 13:55 | NUR ---
Wound Care: Spoke to RN regarding wound care. [place] RN stated these wounds were minimal and patient had skin breakdown from stool and RN would apply Calazime cream to coccyx and not reapply foam dressings as they had not stayed in place previously. Wound care agreeable and will reassess if needed on 03/14/22.
[2022-03-07] MEDS: DAPTOmycin (GENERIC) IVPB 330 MG in IV NORMAL SALINE 50ML 50 ML IV SCH (15:00)
[2022-03-07] MEDS: CEFEPIME HCL IV Push 2 GM VIAL. IVP SCH (15:02)
--- NOTE | 2022-03-07 16:15 | RAD ---
Right Thoracentesis 03/06/2022 2:36 PM Clinical History: Right pleural effusion. Technique: Relative benefits risks and alternatives were discussed with the patient and/or their rep resentative. Written informed consent was obtained. The patient was placed in seated position. A rosemarie eout procedure was performed. Sonographic assessment demonstrates a large pleural effusion. A site for skin entry was selected, and subsequently prepped and draped using sterile barrier technique. 1% lidocaine without epinepherine was administered for local anesthesia to the skin and subcutaenous tissues. A 5 Polish sheathed needle was passed into the pleural space. Clear yellow fluid was aspirated and t he catheter was connected to a vacuum. Approximately 1 liters of fluid were drained. The catheter wa s removed and adequate hemostasis was obtained. A sterile dressing was applied. The patient tolerate d the procedure well, without complications. Impression: Successful ultrasound guided thoracentesis with removal of1.0 liters of fluid. Electronically signed by: Jonathan Mendes MD (03/07/2022 4:13 PM) [id number]
--- NOTE | 2022-03-07 17:28 | NUR ---
Uneventful day. Tolerated thoracentesis . No owners observed past 12 H. Has noappetite but is not new. Takes fluid sparingly. Coccyx w Calazime to area . Continue POC
--- NOTE | 2022-03-07 21:45 | NUR ---
Dr Barreto called and made aware that pt BLE US did show a DVT - order given to start Apixiban BID with first dose being tonight. Will continue to monitor.
[2022-03-07] MEDS: APIXABAN 5 MG TABLET. PO SCH (22:17)
[2022-03-08 03:25] VITALS: BP 114/64
[2022-03-08] MEDS: IV DEXTROSE 5 %-0.45 % NACL 1,000 ML IV SCH (03:43)
[2022-03-08 04:47] LABS: HEMATOCRIT 21.8 % (36.0-47.0); HEMOGLOBIN 7.3 g/dL (12.0-15.5); RED BLOOD COUNT 2.7 x10^6/uL (3.50-5.40); RED CELL DISTRIBUTION WIDTH 16.2 % (11.5-14.5); WHITE BLOOD COUNT 5.7 x10^3/uL (4.0-11.0)
[2022-03-08 05:00] LABS: CALCIUM 6.6 mg/dL (8.5-10.1); CREATININE 1.3 mg/dL (0.6-1.0); GFR 47.2; POTASSIUM 3.2 mmol/L (3.5-5.1)
--- NOTE | 2022-03-08 05:48 | PN ---
DATE: 03/07/2022 SUBJECTIVE: The patient is resting flat in bed, in no apparent distress. She is sleepy, but arousable. On questioning her, denied any complaint. Nursing staff stated that she has some sundowning, agitated overnight. Has had mittens on both hands as she is pulling her tubes but otherwise, she has generally uneventful night. She is scheduled for thoracentesis today and her heparin drip will be stopped an hour before the procedure. Her chemistry has improved. In fact, her potassium has risen from 2.4 to 4.4. Her creatinine came down to 1.5; however, her baseline is 1.2 and her magnesium has improved also 2.9. PHYSICAL EXAMINATION: GENERAL: When I examined her, she was pale, somewhat cachectic, but no jaundiced or cyanosed. No lymphadenopathy, no thyromegaly, no jugular venous distention. No limb edema. VITAL SIGNS: Her heart rate was 80, blood pressure was 127/68, temperature was 97.8, respiratory rate 22, and oxygen saturation was 99% on room air. HEAD, EYES, EARS, NOSE, AND THROAT: Normocephalic, atraumatic. NECK: Supple. HEART: Normal first and second heart sounds. No gallop or murmur. CHEST: Shows central trachea, equal bilateral expansion, air entry, vesicular breath sounds. No crepitation or rhonchi anteriorly. She has dull percussion noted and absent breath sounds on the right side posteriorly. ABDOMEN: Scaphoid, soft, nontender. She has a OSKAR drain today in right lower quadrant. There is no tenderness, no guarding or rigidity. NEUROLOGIC: She is sleepy, but arousable. All cranial nerves intact. She responds appropriately. She moves upper extremities to much good extent than lower extremities. She has bilateral lower limb edema. Her intake over the last 24 hours and output incompletely recorded. LABORATORY DATA: Her lab work this morning showed a serum sodium 139, potassium 4.4, chloride 101, bicarbonate 31, anion gap of 7, BUN 19, creatinine 1.5. Estimated GFR was 40 mL per minute. Her glucose was 124, calcium was 6.7, magnesium was 2.9. Total bilirubin, AST, ALT, alkaline phosphatase were normal. Total protein 4.7, albumin 0.8. Her white cell count was 8.5, hemoglobin 8.3, hematocrit 24, MCV 82 and platelet count 326,000. ASSESSMENT: 1. Altered mental status. The patient is more awake, alert, responding appropriately. 2. Profound hypokalemia, resolved. Her serum potassium has risen from 2.4 to 4.4. 3. Acute on chronic kidney injury, improving. Her creatinine came down from 1.8 to 1.6. Her baseline is 1.2. 4. Questionable urinary tract infection. 5. Hypomagnesemia, resolved. Her serum magnesium is up to 2.9. 6. Bilateral pleural effusion, more on the right than left, scheduled for thoracentesis today. 7. Cecal mass and right iliopsoas abscess, status post drainage. 8. COVID-19 infection in November with bilateral deep vein thrombosis and bilateral pulmonary emboli. 9. Her D-dimer was extremely high at 12.[address] angio of the chest showed bilateral pulmonary emboli, for which she was started initially on Lovenox and then switched to heparin. PLAN: To hold heparin an hour before the thoracentesis. Meanwhile, continue with IV ciprofloxacin and Flagyl. I did manage to get some records from [facility], which confirmed that she has the mass in the ileocecal junction. FÉLIX/BEATRICE DR: Miguel TID: [id number]
[2022-03-08 07:00] VITALS: BP 112/67
[2022-03-08] MEDS ORDERED: ONDANSETRON PF 4 MG/2 ML VIAL. IVP PRN (07:45)
--- NOTE | 2022-03-08 08:56 | PDOC ---
PULMONARY PROGRESS NOTES DATE: 03/08/22 TIME: 08:54 Subjective Patient denies any shortness of breath. Status post thoracentesis. Vitals Vital Signs Date Time Temp Pulse Resp B/P (MAP) Pulse Ox O2 Delivery O2 Flow Rate FiO2 03/08/22 03:25 97.5 74 22 114/64 (81) 96 Room Air 97.5 General: Alert, No acute distress Lungs: Other (Decreased breath sounds at the bases.) Cardiovascular: S1 Abdomen: Soft Neuro Exam: Alert Extremities: No Edema Skin: Warm Labs Laboratory Tests Test 03/06/22 11:45 03/07/22 01:55 03/07/22 09:10 03/08/22 04:30 White Blood Count 8.5 x10^3/uL (4.0-11.0) 7.3 x10^3/uL (4.0-11.0) 5.7 x10^3/uL (4.0-11.0) Red Blood Count 3.05 x10^6/uL (3.50-5.40) 2.83 x10^6/uL (3.50-5.40) 2.70 x10^6/uL (3.50-5.40) Hemoglobin 8.3 g/dL (12.0-15.5) 7.8 g/dL (12.0-15.5) 7.3 g/dL (12.0-15.5) Hematocrit 24.8 % (36.0-47.0) 23.0 % (36.0-47.0) 21.8 % (36.0-47.0) Mean Corpuscular Volume 82 fL (79-100) 81 fL (79-100) 81 fL (79-100) Mean Corpuscular Hemoglobin 27 pg (25-35) 28 pg (25-35) 27 pg (25-35) Mean Corpuscular Hemoglobin Concent 33 g/dL (31-37) 34 g/dL (31-37) 33 g/dL (31-37) Red Cell Distribution Width 16.6 % (11.5-14.5) 16.7 % (11.5-14.5) 16.2 % (11.5-14.5) Platelet Count 326 x10^3/uL (140-400) 304 x10^3/uL (140-400) 265 x10^3/uL (140-400) Sodium Level 139 mmol/L (136-145) 139 mmol/L (136-145) 137 mmol/L (136-145) Potassium Level 4.4 mmol/L (3.5-5.1) 3.7 mmol/L (3.5-5.1) 3.2 mmol/L (3.5-5.1) Chloride Level 101 mmol/L (98-107) 103 mmol/L (98-107) 103 mmol/L (98-107) Carbon Dioxide Level 31 mmol/L (21-32) 30 mmol/L (21-32) 28 mmol/L (21-32) Anion Gap 7 (6-14) 6 (6-14) 6 (6-14) Blood Urea Nitrogen 19 mg/dL (7-20) 18 mg/dL (7-20) 14 mg/dL (7-20) Creatinine 1.5 mg/dL (0.6-1.0) 1.6 mg/dL (0.6-1.0) 1.3 mg/dL (0.6-1.0) Estimated GFR (Cockcroft-Gault) 40.0 37.2 47.2 BUN/Creatinine Ratio 13 (6-20) 11 (6-20) Glucose Level 124 mg/dL (70-99) 122 mg/dL (70-99) 112 mg/dL (70-99) Calcium Level 6.7 mg/dL (8.5-10.1) 6.7 mg/dL (8.5-10.1) 6.6 mg/dL (8.5-10.1) Magnesium Level 2.9 mg/dL (1.8-2.4) Total Bilirubin 0.3 mg/dL (0.2-1.0) 0.3 mg/dL (0.2-1.0) Aspartate Amino Transf (AST/SGOT) 22 U/L (15-37) 24 U/L (15-37) Alanine Aminotransferase (ALT/SGPT) 18 U/L (14-59) 18 U/L (14-59) Alkaline Phosphatase 88 U/L (46-116) 90 U/L (46-116) Total Protein 4.7 g/dL (6.4-8.2) 4.7 g/dL (6.4-8.2) Albumin 0.8 g/dL (3.4-5.0) 0.8 g/dL (3.4-5.0) Albumin/Globulin Ratio 0.2 (1.0-1.7) 0.2 (1.0-1.7) Heparin Anti-Xa Act, Unfractionated 0.81 IU/mL (0.30-0.70) Creatine Kinase 70 U/L (26-192) Laboratory Tests Test 03/07/22 09:10 03/08/22 04:30 White Blood Count 7.3 x10^3/uL (4.0-11.0) 5.7 x10^3/uL (4.0-11.0) Red Blood Count 2.83 x10^6/uL (3.50-5.40) 2.70 x10^6/uL (3.50-5.40) Hemoglobin 7.8 g/dL (12.0-15.5) 7.3 g/dL (12.0-15.5) Hematocrit 23.0 % (36.0-47.0) 21.8 % (36.0-47.0) Mean Corpuscular Volume 81 fL (79-100) 81 fL (79-100) Mean Corpuscular Hemoglobin 28 pg (25-35) 27 pg (25-35) Mean Corpuscular Hemoglobin Concent 34 g/dL (31-37) 33 g/dL (31-37) Red Cell Distribution Width 16.7 % (11.5-14.5) 16.2 % (11.5-14.5) Platelet Count 304 x10^3/uL (140-400) 265 x10^3/uL (140-400) Sodium Level 139 mmol/L (136-145) 137 mmol/L (136-145) Potassium Level 3.7 mmol/L (3.5-5.1) 3.2 mmol/L (3.5-5.1) Chloride Level 103 mmol/L (98-107) 103 mmol/L (98-107) Carbon Dioxide Level 30 mmol/L (21-32) 28 mmol/L (21-32) Anion Gap 6 (6-14) 6 (6-14) Blood Urea Nitrogen 18 mg/dL (7-20) 14 mg/dL (7-20) Creatinine 1.6 mg/dL (0.6-1.0) 1.3 mg/dL (0.6-1.0) Estimated GFR (Cockcroft-Gault) 37.2 47.2 BUN/Creatinine Ratio 11 (6-20) Glucose Level 122 mg/dL (70-99) 112 mg/dL (70-99) Calcium Level 6.7 mg/dL (8.5-10.1) 6.6 mg/dL (8.5-10.1) Total Bilirubin 0.3 mg/dL (0.2-1.0) Aspartate Amino Transf (AST/SGOT) 24 U/L (15-37) Alanine Aminotransferase (ALT/SGPT) 18 U/L (14-59) Alkaline Phosphatase 90 U/L (46-116) Total Protein 4.7 g/dL (6.4-8.2) Albumin 0.8 g/dL (3.4-5.0) Albumin/Globulin Ratio 0.2 (1.0-1.7) Creatine Kinase 70 U/L (26-192) Medications Active Scripts Medications Dose Route/Sig Max Daily Dose Days Date Category Isosorbide Mononitrate Er (Isosorbide Mononitrate) 30 Mg Tab.er.24h 1 Tab PO DAILY 12/24/21 Reported Protonix (Pantoprazole Sodium) 40 Mg Tablet.dr 40 Mg PO DAILYAC 12/24/21 Reported Carafate (Sucralfate) 1 Gm Tablet 1 Tab PO QIDACHS 30 12/24/21 Reported Ferrous Sulfate 325 Mg Tablet 1 Tab PO DAILY 60 12/24/21 Reported Coenzyme Q10 (Ubidecarenone) 200 Mg Capsule 200 Mg PO DAILY 04/13/14 Reported Nifedipine Er (Nifedipine) 60 Mg Tablet.er 60 Mg PO DAILY 04/13/14 Reported Carvedilol 25 Mg Tablet 25 Mg PO BID AC 04/13/14 Reported Impression . 1. Acute pulmonary embolism. 2. This is a patient who was diagnosed with pulmonary embolism and deep venous thrombosis in late November during her hospitalization at . She took Lovenox outpatient until December and then did not receive a refill of her Lovenox from . As a result, she has not been on anticoagulation. She now has a subsegmental pulmonary emboli involving the right and the left lung. No evidence of right heart strain. She will be on lifelong anticoagulation. 3. History of lower extremity deep venous thrombosis. Repeat venous Dopplers with bilateral lower extremity DVT. 4. 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 Never had biopsy done. 5. History of bacteremia secondary to iliopsoas abscess in the setting of bowel perforation due to cecal mass. She underwent OSKAR drainage for 4 weeks and was hospitalized at . 6. No significant tobaccoism. 7. Bilateral pleural effusion, more on the right than on the left. Cannot exclude metastasis. Status post right thoracentesis. 8. Severe protein calorie malnutrition. 9. Positive blood culture. Plan . 1. Stable pulmonary status. 2. Status post thoracentesis. We will follow the results especially cytology to rule out malignant effusion. 3. She will need lifelong anticoagulation. Currently on oral Eliquis. 4. Venous Dopplers of lower extremity positive for DVT 5. Follow infectious disease recommendations. 6. Empiric antibiotics were started. Follow final blood culture results. 7. Discussed with Dr. Barreto, discussed with RN 5/6. Addendum;. Discussed with patient's daughter 5/6. At this point she is not interested in having cecal mass biopsy. Her goal is to improve her nutritional status and follow on the results of thoracentesis fluid to make sure is not related to cancer. I told her that we will be switching her to oral anticoagulation and she will remain on lifelong anticoagulation. QUYEN JOHNS MD March 08, 2022 08:56
[2022-03-08] MEDS: POTASSIUM BICARB 20 MEQ EFFERVESCENT TABLET. PEG SCH ×3 (09:20→20:56)
[2022-03-08] MEDS: POTASSIUM CL 40MEQ D5-0.45NACL 1,000 ML IV SCH ×2 (09:20→21:47)
[2022-03-08] MEDS: MAGNESIUM SULFATE 4GM 100 ML IV SCH (09:20)
[2022-03-08] MEDS: APIXABAN 5 MG TABLET. PO SCH ×2 (09:20→20:56)
[2022-03-08] MEDS: LACTOBACILLUS RHAMNOSUS GG 1 CAPSULE. PO SCH ×2 (09:21→20:56)
[2022-03-08 11:00] VITALS: BP 110/70
--- NOTE | 2022-03-08 12:20 | PDOC ---
Infectious Disease Note Subjective Subjective pt is feeling good says EVELYN RIVAS No nausea vomiting diarrhea or fever Vital Sign Vital Signs Vital Signs Date Time Temp Pulse Resp B/P (MAP) Pulse Ox O2 Delivery O2 Flow Rate FiO2 03/08/22 03:25 97.5 74 22 114/64 (81) 96 Room Air 97.5 Physical Exam PHYSICAL EXAM GENERAL: Alert, awake, comfortable female, lying in bed, cachectic, chronically ill-appearing, in no acute distress. HEENT: Normocephalic, atraumatic. Anicteric. No thrush. NECK: Supple. LUNGS: Decreased breath sounds at the bases. No wheezing. HEART: S1, S2. No gallops, no murmurs. ABDOMEN: Soft, nontender, nondistended. Right iliac drain with greenish mckinney drainage. EXTREMITIES: No edema, no cyanosis. CENTRAL NERVOUS SYSTEM: Alert, awake. PSYCHIATRIC: Calm and cooperative. LINES: PIV clean. Awaiting central line placement. Left-sided PICC line. Labs Lab Laboratory Tests Test 03/08/22 04:30 White Blood Count 5.7 x10^3/uL (4.0-11.0) Red Blood Count 2.70 x10^6/uL (3.50-5.40) Hemoglobin 7.3 g/dL (12.0-15.5) Hematocrit 21.8 % (36.0-47.0) Mean Corpuscular Volume 81 fL (79-100) Mean Corpuscular Hemoglobin 27 pg (25-35) Mean Corpuscular Hemoglobin Concent 33 g/dL (31-37) Red Cell Distribution Width 16.2 % (11.5-14.5) Platelet Count 265 x10^3/uL (140-400) Sodium Level 137 mmol/L (136-145) Potassium Level 3.2 mmol/L (3.5-5.1) Chloride Level 103 mmol/L (98-107) Carbon Dioxide Level 28 mmol/L (21-32) Anion Gap 6 (6-14) Blood Urea Nitrogen 14 mg/dL (7-20) Creatinine 1.3 mg/dL (0.6-1.0) Estimated GFR (Cockcroft-Gault) 47.2 Glucose Level 112 mg/dL (70-99) Calcium Level 6.6 mg/dL (8.5-10.1) Creatine Kinase 70 U/L (26-192) Micro Microbiology 03/07/22 Gram Stain - Final, Resulted 03/07/22 Aerobic and Anaerobic Culture - Preliminary, Resulted Objective Assessment IMPRESSION: 1. Bilateral pulmonary embolism. 2. Electrolyte imbalance. 3. Intraabdominal abscess with a cecal mass around the ileocecal junction with mass-like expansion in the right iliacus muscle. Details are unavailable from [facility]. 4. Coronary artery disease, status post coronary artery bypass grafting. 5. Status post permanent pacemaker. 6. History of congestive heart failure, hypertension. 7. History of COVID-19. 8. HISTORY OF ALLERGIES TO CEFTRIAXONE. 9 BC + with G + cocci and anaerobic gram-negative rods Plan Plan of Care cont cipro and flagyl daptomycin prognosis poor MARCELINO EDDY MD March 08, 2022 12:20
[2022-03-08] MEDS: TPN PER PHARMACY MC PRN (12:34)
--- NOTE | 2022-03-08 12:34 | NUR ---
Pharmacy TPN Dosing Note S: REID RUIZ is a 86 year old F Currently receiving Central Continuous TPN started 03/08/22 B:Pertinent PMH: PERITONEAL ABSCESS, SEPSIS Height: 5 feet, 1 inches Weight: 55.5 kg Current diet: REGULAR LABS: Sodium: 137 Potassium: 3.2 Chloride: 103 Calcium: 6.6 Corrected Calcium: 9.16 Magnesium: 2.9 CO2: 28 SCr: 1.3 Glucose: 112 Albumin: 0.8 AST: 24 ALT: 18 TPN FORMULA: TPN TYPE: Central Continuous AMINO ACIDS: 60 gm DEXTROSE: 195 gm LIPIDS: 20 gm SODIUM CHLORIDE: 90 mEq POTASSIUM CHLORIDE: 50 mEq POTASSIUM PHOSPHATE: 13.6 mmol MAGNESIUM: 10 mEq MULTIPLE VITAMIN: 10 ml TRACE ELEMENTS: 1 ml(s) TPN PLAN: BEGIN STANDARD TPN AT 63 ML/HR. R: Continue TPN Will monitor electrolytes, glucose, and tolerance to TPN. ELIAN LEIVA [facility], 03/08/22 [id number]
[2022-03-08] MEDS: DRONABINOL 2.5 MG CAPSULE. PO SCH ×2 (12:46→17:36)
[2022-03-08 13:19] LABS: PHOSPHORUS 2.3 mg/dL (2.6-4.7)
[2022-03-08 15:00] VITALS: BP 118/71
[2022-03-08] MEDS: CEFEPIME HCL IV Push 2 GM VIAL. IVP SCH (15:48)
[2022-03-08 19:20] VITALS: BP 106/87
[2022-03-08] MEDS ORDERED: TOTAL PARENTERAL NUTRITION 1,446.4667 ML, AMINO ACID 15% 60 GM, DEXTROSE 70 % IN WATER ... IV SCH (22:00)
[2022-03-08] MEDS ORDERED: AMINO ACID IV SCH (22:00)
[2022-03-08] MEDS ORDERED: TOTAL PARENTERAL NUTRITION IV SCH (22:00)
[2022-03-08] MEDS ORDERED: DEXTROSE 70% IV SCH (22:00)
[2022-03-08] MEDS ORDERED: [UNRECOGNIZED DRUG - OTHER] IV SCH (22:00)
--- NOTE | 2022-03-08 23:05 | PN ---
DATE: 03/08/2022 SUBJECTIVE: The patient is resting flat comfortably in bed, in no apparent distress. On questioning her, denied any complaint. The nursing staff did not voice any concern, instead had generally uneventful night. PHYSICAL EXAMINATION: GENERAL: When I examined her, she was pale, cachectic, but not jaundiced, cyanosis or thyromegaly. No jugular venous distention. No lower limb edema. VITAL SIGNS: Her heart rate was 74, blood pressure was 114/64, temperature was 97.5, respiratory rate 22, and oxygen saturation was 96% on room air. HEAD, EYES, EARS, NOSE, AND THROAT: Normocephalic, atraumatic. NECK: Supple. HEART: Showed normal first and second heart sounds. No gallop, rub or murmur. CHEST: Clear to auscultation, no crepitation or rhonchi. ABDOMEN: Scaphoid, soft, nontender with a drain in the right lower quadrant, no guarding or rigidity. No organomegaly. All hernial orifice intact. Bowel sounds normal. NEUROLOGIC: She is sleepy, but arousable. All her cranial nerves intact. She moves extremities without difficulty, but she has marked muscle wasting and weakness. She has bilateral lower extremity edema with wounds on her right foot covered with dressing. Her intake over the last 24 hours was 2760, output was 301. LABORATORY DATA: As of this morning, her white cell count was 5.7, hemoglobin 7.3, hematocrit 21.8, MCV 81 and platelet count 265,000. Serum sodium was 137, potassium 3.2, chloride 103, bicarbonate 28, anion gap of 6, BUN 14, creatinine 1.3. Estimated GFR was 47 mL per minute. Her glucose 112, calcium was 6.6. ASSESSMENT AND PLAN: In summary, this is an 86-year-old -Martiniquais female patient who was admitted with: 1. Altered mental status that has improved. The patient is now more awake, alert, responding appropriately. 2. Profound hypokalemia, has resolved. Her potassium has risen from 2.4 to 4.4. Today's potassium is 3.2. 3. Acute on chronic kidney injury, improving. Her creatinine came down from 1.6 to 1.2. 4. Questionable urinary tract infection. 5. Hypomagnesemia, resolved. Her serum magnesium went up to 2.9. 6. Bilateral pleural effusion, status post thoracentesis and drainage of about 1000 mL of fluid from the right hemithorax. 7. Cecal mass and right iliopsoas abscess, status post drainage. 8. COVID-19 infection in 11/2021 with bilateral deep vein thrombosis and bilateral pulmonary emboli. 9. Her D-dimer was extremely high at 12.[address] angio of the chest showed that she has bilateral pulmonary emboli, for which she was started initially on Lovenox, switched to heparin and now she is on apixaban. 10. Her blood culture was positive for Gram-positive cocci and she is now actually on IV cefepime, daptomycin as well as Flagyl. Her Cipro was discontinued. 11. The patient is extremely malnourished; and therefore, I started her on TPN and because of severe anorexia, I started also on Marinol. I will replenish her potassium orally and monitor her closely. Her overall prognosis is extremely poor. MARYANN/LEO DR: Miguel TID: [id number]
[2022-03-08 23:25] VITALS: BP 103/56
[2022-03-09] VITALS (9 sets, daily range): BP systolic 99–140; BP diastolic 56–82
[2022-03-09 06:29] LABS: CALCIUM 6.5 mg/dL (8.5-10.1); CREATININE 1.2 mg/dL (0.6-1.0); GFR 51.8; MAGNESIUM 2.8 mg/dL (1.8-2.4); POTASSIUM 4.5 mmol/L (3.5-5.1)
[2022-03-09] MEDS ORDERED: POTASSIUM BICARB 20 MEQ EFFERVESCENT TABLET. PEG SCH (08:00)
[2022-03-09] MEDS: APIXABAN 5 MG TABLET. PO SCH ×2 (08:34→21:45)
[2022-03-09] MEDS: LACTOBACILLUS RHAMNOSUS GG 1 CAPSULE. PO SCH ×2 (08:34→21:45)
--- NOTE | 2022-03-09 08:53 | PDOC ---
PULMONARY PROGRESS NOTES DATE: 03/09/22 TIME: 08:53 Subjective Patient denies any shortness of breath. Status post thoracentesis. Vitals Vital Signs Date Time Temp Pulse Resp B/P (MAP) Pulse Ox O2 Delivery O2 Flow Rate FiO2 03/09/22 03:20 97.7 87 16 119/80 (93) 95 Room Air 97.7 General: Alert, No acute distress Lungs: Other (Decreased breath sounds at the bases.) Cardiovascular: S1 Abdomen: Soft Neuro Exam: Alert Extremities: No Edema Skin: Warm Labs Laboratory Tests Test 03/07/22 09:10 03/08/22 04:30 03/09/22 06:10 White Blood Count 7.3 x10^3/uL (4.0-11.0) 5.7 x10^3/uL (4.0-11.0) Red Blood Count 2.83 x10^6/uL (3.50-5.40) 2.70 x10^6/uL (3.50-5.40) Hemoglobin 7.8 g/dL (12.0-15.5) 7.3 g/dL (12.0-15.5) 7.8 g/dL (12.0-15.5) Hematocrit 23.0 % (36.0-47.0) 21.8 % (36.0-47.0) Mean Corpuscular Volume 81 fL (79-100) 81 fL (79-100) Mean Corpuscular Hemoglobin 28 pg (25-35) 27 pg (25-35) Mean Corpuscular Hemoglobin Concent 34 g/dL (31-37) 33 g/dL (31-37) Red Cell Distribution Width 16.7 % (11.5-14.5) 16.2 % (11.5-14.5) Platelet Count 304 x10^3/uL (140-400) 265 x10^3/uL (140-400) Sodium Level 139 mmol/L (136-145) 137 mmol/L (136-145) 133 mmol/L (136-145) Potassium Level 3.7 mmol/L (3.5-5.1) 3.2 mmol/L (3.5-5.1) 4.5 mmol/L (3.5-5.1) Chloride Level 103 mmol/L (98-107) 103 mmol/L (98-107) 102 mmol/L (98-107) Carbon Dioxide Level 30 mmol/L (21-32) 28 mmol/L (21-32) 27 mmol/L (21-32) Anion Gap 6 (6-14) 6 (6-14) 4 (6-14) Blood Urea Nitrogen 18 mg/dL (7-20) 14 mg/dL (7-20) 12 mg/dL (7-20) Creatinine 1.6 mg/dL (0.6-1.0) 1.3 mg/dL (0.6-1.0) 1.2 mg/dL (0.6-1.0) Estimated GFR (Cockcroft-Gault) 37.2 47.2 51.8 BUN/Creatinine Ratio 11 (6-20) Glucose Level 122 mg/dL (70-99) 112 mg/dL (70-99) 122 mg/dL (70-99) Calcium Level 6.7 mg/dL (8.5-10.1) 6.6 mg/dL (8.5-10.1) 6.5 mg/dL (8.5-10.1) Total Bilirubin 0.3 mg/dL (0.2-1.0) Aspartate Amino Transf (AST/SGOT) 24 U/L (15-37) Alanine Aminotransferase (ALT/SGPT) 18 U/L (14-59) Alkaline Phosphatase 90 U/L (46-116) Total Protein 4.7 g/dL (6.4-8.2) Albumin 0.8 g/dL (3.4-5.0) Albumin/Globulin Ratio 0.2 (1.0-1.7) Phosphorus Level 2.3 mg/dL (2.6-4.7) 1.8 mg/dL (2.6-4.7) Magnesium Level 2.0 mg/dL (1.8-2.4) 2.8 mg/dL (1.8-2.4) Creatine Kinase 70 U/L (26-192) Laboratory Tests Test 03/09/22 06:10 Hemoglobin 7.8 g/dL (12.0-15.5) Sodium Level 133 mmol/L (136-145) Potassium Level 4.5 mmol/L (3.5-5.1) Chloride Level 102 mmol/L (98-107) Carbon Dioxide Level 27 mmol/L (21-32) Anion Gap 4 (6-14) Blood Urea Nitrogen 12 mg/dL (7-20) Creatinine 1.2 mg/dL (0.6-1.0) Estimated GFR (Cockcroft-Gault) 51.8 Glucose Level 122 mg/dL (70-99) Calcium Level 6.5 mg/dL (8.5-10.1) Phosphorus Level 1.8 mg/dL (2.6-4.7) Magnesium Level 2.8 mg/dL (1.8-2.4) Medications Active Scripts Medications Dose Route/Sig Max Daily Dose Days Date Category Isosorbide Mononitrate Er (Isosorbide Mononitrate) 30 Mg Tab.er.24h 1 Tab PO DAILY 12/24/21 Reported Protonix (Pantoprazole Sodium) 40 Mg Tablet.dr 40 Mg PO DAILYAC 12/24/21 Reported Carafate (Sucralfate) 1 Gm Tablet 1 Tab PO QIDACHS 30 12/24/21 Reported Ferrous Sulfate 325 Mg Tablet 1 Tab PO DAILY 60 12/24/21 Reported Coenzyme Q10 (Ubidecarenone) 200 Mg Capsule 200 Mg PO DAILY 04/13/14 Reported Nifedipine Er (Nifedipine) 60 Mg Tablet.er 60 Mg PO DAILY 04/13/14 Reported Carvedilol 25 Mg Tablet 25 Mg PO BID AC 04/13/14 Reported Impression . 1. Acute pulmonary embolism. 2. This is a patient who was diagnosed with pulmonary embolism and deep venous thrombosis in late November during her hospitalization at . She took Lovenox outpatient until December and then did not receive a refill of her Lovenox from . As a result, she has not been on anticoagulation. She now has a subsegmental pulmonary emboli involving the right and the left lung. No evidence of right heart strain. She will be on lifelong anticoagulation. 3. History of lower extremity deep venous thrombosis. Repeat venous Dopplers with bilateral lower extremity DVT. 4. 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 Never had biopsy done. 5. History of bacteremia secondary to iliopsoas abscess in the setting of bowel perforation due to cecal mass. She underwent OSKAR drainage for 4 weeks and was hospitalized at . 6. No significant tobaccoism. 7. Bilateral pleural effusion, more on the right than on the left. Cannot exclude metastasis. Status post right thoracentesis. 8. Severe protein calorie malnutrition. 9. Positive blood culture. Plan . 1. Stable pulmonary status. 2. Status post thoracentesis. We will follow the results especially cytology to rule out malignant effusion. 3. She will need lifelong anticoagulation. Currently on oral Eliquis. 4. Venous Dopplers of lower extremity positive for DVT 5. Follow infectious disease recommendations. 6. Empiric antibiotics were started. Follow final blood culture results. 7. Discussed with Dr. Barreto, discussed with RN 5/6. Discussed with patient's daughter 5/6. At this point she is not interested in having cecal mass biopsy. Her goal is to improve her nutritional status and follow on the results of thoracentesis fluid to make sure is not related to cancer. QUYEN JOHNS MD March 09, 2022 08:53
--- NOTE | 2022-03-09 09:19 | PN ---
DATE: 03/09/2022 SUBJECTIVE: The patient is resting flat, sleeping comfortably, in no apparent distress. On questioning her, denied any complaint. Nursing staff did not voice any concern, said that she had an uneventful night. PHYSICAL EXAMINATION: GENERAL: When I examined her, looked well, was clearly in no apparent respiratory distress, pale, somewhat cachectic, but no jaundice, cyanosis or thyromegaly. No jugular venous distention, but bilateral lower limb edema. VITAL SIGNS: Her heart rate was 87, blood pressure 119/80, temperature 97.7, respiratory rate was 16 and oxygen saturation of 95%. HEAD, EYES, EARS, NOSE AND THROAT: Normocephalic, atraumatic. NECK: Supple. HEART: Showed normal first and second heart sounds. No gallop or murmur. CHEST: Clear to auscultation. No crepitation or rhonchi. ABDOMEN: Scaphoid, soft, nontender with a drain in the right lower quadrant, no guarding or rigidity. No organomegaly. All hernial orifice intact. Bowel sounds normal. NEUROLOGIC: She is sleepy, but arousable. All other cranial nerves intact, moves upper extremities without difficulty. She has marked muscle wasting and weakness. Her intake was 2760, output was 1465. Her hemoglobin was 7.8,. LABORATORY DATA: Her serum sodium 133, potassium 4.5, chloride 102, bicarbonate 27, anion gap of 4, BUN 12, creatinine 1.2. Estimated GFR was 52 mL per minute. Her glucose 122, calcium was 6.5, phosphorus was 1.8 and magnesium was 2.8. ASSESSMENT: 1. Altered mental status is improved. The patient is now more awake, alert, responding appropriately. 2. Profound hypokalemia, resolved. Her serum potassium has improved to 4.4. 3. Acute on chronic kidney injury, improving. Her creatinine is down to 1.2. 4. Questionable urinary tract infection. 5. Hypomagnesemia, resolved. Her magnesium is actually high up to 2.8. 6. Bilateral pleural effusion, status post thoracentesis and drainage of about 1000 mL of fluid from the right hemithorax. 7. Cecal mass and the right iliopsoas abscess, status post drainage. 8. COVID-19 infection with bilateral deep vein thrombosis and bilateral pulmonary emboli. 9. D-dimer was high and CT angio of the chest showed that she has bilateral pulmonary emboli, for which she was started initially on Lovenox. She is now on apixaban. 10. Her blood cultures were positive for gram-positive cocci and she is now on IV cefepime, daptomycin as well as Flagyl. Her Cipro was discontinued. 11. The patient is extremely malnourished, and therefore, we started her on TPN. I also added Marinol. PLAN: To continue the antibiotic. Continue with TPN. Continue to monitor her electrolytes and replenish them as needed. VINAYAK DR: Miguel TID: [id number]
--- NOTE | 2022-03-09 10:18 | PDOC ---
Infectious Disease Note Subjective: Subjective Patient states feels better denies any abdominal pain, shortness of breath or cough Discussed with RN Vital Signs: Vital Signs Vital Signs Date Time Temp Pulse Resp B/P (MAP) Pulse Ox O2 Delivery O2 Flow Rate FiO2 03/09/22 03:20 97.7 87 16 119/80 (93) 95 Room Air 97.7 Physical Exam: PHYSICAL EXAM GENERAL: Alert, awake, comfortable female, lying in bed, cachectic, chronically ill-appearing, in no acute distress. HEENT: Normocephalic, atraumatic. Anicteric. No thrush. NECK: Supple. LUNGS: Decreased breath sounds at the bases. No wheezing. HEART: S1, S2. No gallops, no murmurs. ABDOMEN: Soft, nontender, nondistended. Right iliac drain with greenish mckinney drainage. EXTREMITIES: No edema, no cyanosis. CENTRAL NERVOUS SYSTEM: Alert, awake. PSYCHIATRIC: Calm and cooperative. LINES: PIV clean. Right IJ present. Left PICC line removed Medications: Inpatient Meds: Medications reviewed. Labs: Lab Laboratory Tests Test 03/09/22 06:10 Hemoglobin 7.8 g/dL (12.0-15.5) Sodium Level 133 mmol/L (136-145) Potassium Level 4.5 mmol/L (3.5-5.1) Chloride Level 102 mmol/L (98-107) Carbon Dioxide Level 27 mmol/L (21-32) Anion Gap 4 (6-14) Blood Urea Nitrogen 12 mg/dL (7-20) Creatinine 1.2 mg/dL (0.6-1.0) Estimated GFR (Cockcroft-Gault) 51.8 Glucose Level 122 mg/dL (70-99) Calcium Level 6.5 mg/dL (8.5-10.1) Phosphorus Level 1.8 mg/dL (2.6-4.7) Magnesium Level 2.8 mg/dL (1.8-2.4) Objective: Assessment: 1. Bilateral pulmonary embolism. 2. Electrolyte imbalance. 3. 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 Partial record review done Patient has been treated for intra-abdominal abscess since November 2021 It appears that ID had discontinued her antibiotics sometime in December 2021 They had recommended that patient undergo repeat biopsy It appears patient was not on any antibiotics prior to admission 4. Coronary artery disease, status post coronary artery bypass grafting. 5. Status post permanent pacemaker. 6. History of congestive heart failure, hypertension. 7. History of COVID-19. 8. HISTORY OF ALLERGIES TO CEFTRIAXONE. 9 BC + with G + cocci and anaerobic gram-negative rods Plan: Plan of Care cont cipro and flagyl daptomycin Overall prognosis very poor Consider palliative care Discussed with nursing staff CA EDDY MD March 09, 2022 10:18
[2022-03-09] MEDS: DRONABINOL 2.5 MG CAPSULE. PO SCH ×2 (11:42→16:59)
[2022-03-09] MEDS: TPN PER PHARMACY MC PRN ×2 (12:41→13:02)
--- NOTE | 2022-03-09 12:41 | NUR ---
Pharmacy TPN Dosing Note S: REID RUIZ is a 86 year old F Currently receiving Central Continuous TPN started 03/08/22 B:Pertinent PMH: PERITONEAL ABSCESS, SEPSIS Height: 5 feet, 1 inches Weight: 55.5 kg Current diet: REGULAR LABS: Sodium: 133 Potassium: 4.5 Chloride: 102 Calcium: 6.5 Corrected Calcium: 9.06 Magnesium: 2.8 CO2: 27 SCr: 1.2 Glucose: 122 Albumin: 0.8 AST: 24 ALT: 18 TPN FORMULA: TPN TYPE: Central Continuous AMINO ACIDS: 60 gm DEXTROSE: 195 gm LIPIDS: 20 gm SODIUM CHLORIDE: 90 mEq SODIUM PHOSPHATE: 10 mmol POTASSIUM CHLORIDE: 50 mEq POTASSIUM PHOSPHATE: 13.6 mmol MAGNESIUM: 5 mEq MULTIPLE VITAMIN: 10 ml TRACE ELEMENTS: 1 ml(s) TPN PLAN: BEGIN STANDARD TPN AT 63 ML/HR. R: Continue TPN Will monitor electrolytes, glucose, and tolerance to TPN. ELIAN LEIVA Horacio, 03/09/22 [id number]
[2022-03-09] MEDS ORDERED: SODIUM PHOSPHATE 15 MMOL in IV NS 100 ML IV ONE (14:00)
[2022-03-09] MEDS: CEFEPIME HCL IV Push 2 GM VIAL. IVP SCH (14:44)
[2022-03-09] MEDS: DAPTOmycin (GENERIC) IVPB 330 MG in IV NORMAL SALINE 50ML 50 ML IV SCH (15:39)
[2022-03-09] MEDS ORDERED: FUROSEMIDE 20 MG/2 ML VIAL. IVP ONE (17:15)
--- NOTE | 2022-03-09 17:32 | RAD ---
Exam: Chest one view INDICATION: Reassess pleural effusion, increasing oxygen demand TECHNIQUE: Frontal view of the chest Comparisons: 03/06/2022 FINDINGS: Sternotomy wires are noted. Pacer with leads in the right heart. There is a right central venous cath eter with tip in the SVC. The cardiomediastinal silhouette and pulmonary vessels are within normal limits. Patchy bibasilar airspace disease with small bilateral pleural effusions. IMPRESSION: Bibasilar airspace disease with small bilateral pleural effusions. Electronically signed by: Umu Jenkins MD (03/09/2022 5:29 PM) JAMILAH
--- NOTE | 2022-03-09 18:30 | NUR ---
See assessment in [facility]. Pt remains Alert/oriented will assist with turns, more dsypnic with exertion this afternoon. Wheezes upper airway noted. 02sat 88-placed on 2l. Incont of large amount of loose/diarrhea stool. however UO remains minimal. Notified Dr Stewart given per order. Chest xray done. diuresising well now. No sob noted at this time. Cont to have purulent drainage via RT lateral periteneal drain. Remains Afrebile. Blood cx results, ID aware as per note. Preparing to transfer to [facility]-family aware. Cont plan of care
--- NOTE | 2022-03-09 20:15 | NUR ---
Received patient, Selene Gomes, to room 500 by bed, belongings and tpn, antibiotics with transfer,.plan of care discussed
[2022-03-09] MEDS ORDERED: TOTAL PARENTERAL NUTRITION IV SCH ×2 (22:00)
[2022-03-09] MEDS ORDERED: DEXTROSE 70% IV SCH ×2 (22:00)
[2022-03-09] MEDS ORDERED: AMINO ACID IV SCH ×2 (22:00)
[2022-03-09] MEDS ORDERED: [UNRECOGNIZED DRUG - OTHER] IV SCH (22:00)
[2022-03-09] MEDS ORDERED: [UNRECOGNIZED DRUG - OTHER] IV SCH (22:00)
[2022-03-10] VITALS (7 sets, daily range): BP systolic 93–136; BP diastolic 59–75
[2022-03-10 05:54] LABS: HEMATOCRIT 21.6 % (36.0-47.0); HEMOGLOBIN 7.3 g/dL (12.0-15.5); RED BLOOD COUNT 2.67 x10^6/uL (3.50-5.40); RED CELL DISTRIBUTION WIDTH 16.4 % (11.5-14.5); WHITE BLOOD COUNT 6.8 x10^3/uL (4.0-11.0)
[2022-03-10 06:03] LABS: CALCIUM 6.5 mg/dL (8.5-10.1); CREATININE 1.2 mg/dL (0.6-1.0); GFR 51.8; MAGNESIUM 2.5 mg/dL (1.8-2.4); POTASSIUM 4.2 mmol/L (3.5-5.1)
[2022-03-10] MEDS: APIXABAN 5 MG TABLET. PO SCH ×2 (08:32→21:19)
[2022-03-10] MEDS: LACTOBACILLUS RHAMNOSUS GG 1 CAPSULE. PO SCH ×2 (08:32→21:19)
--- NOTE | 2022-03-10 10:53 | PDOC ---
PULMONARY PROGRESS NOTES DATE: 03/10/22 TIME: 10:51 Subjective Patient had some shortness of breath and hypoxia yesterday. Clinically feels better with Lasix. Status post thoracentesis. Vitals Vital Signs Date Time Temp Pulse Resp B/P (MAP) Pulse Ox O2 Delivery O2 Flow Rate FiO2 03/10/22 08:00 Nasal Cannula 2.0 03/10/22 07:00 97.9 101 18 98/62 (74) 95 97.9 General: Alert, No acute distress Lungs: Other (Decreased breath sounds at the bases.) Cardiovascular: S1 Abdomen: Soft Neuro Exam: Alert Extremities: No Edema Skin: Warm Labs Laboratory Tests Test 03/09/22 06:10 03/09/22 11:49 03/09/22 17:30 03/10/22 05:20 Hemoglobin 7.8 g/dL (12.0-15.5) 7.3 g/dL (12.0-15.5) Sodium Level 133 mmol/L (136-145) 135 mmol/L (136-145) Potassium Level 4.5 mmol/L (3.5-5.1) 4.2 mmol/L (3.5-5.1) Chloride Level 102 mmol/L (98-107) 104 mmol/L (98-107) Carbon Dioxide Level 27 mmol/L (21-32) 25 mmol/L (21-32) Anion Gap 4 (6-14) 6 (6-14) Blood Urea Nitrogen 12 mg/dL (7-20) 13 mg/dL (7-20) Creatinine 1.2 mg/dL (0.6-1.0) 1.2 mg/dL (0.6-1.0) Estimated GFR (Cockcroft-Gault) 51.8 51.8 Glucose Level 122 mg/dL (70-99) 129 mg/dL (70-99) Calcium Level 6.5 mg/dL (8.5-10.1) 6.5 mg/dL (8.5-10.1) Phosphorus Level 1.8 mg/dL (2.6-4.7) 3.0 mg/dL (2.6-4.7) Magnesium Level 2.8 mg/dL (1.8-2.4) 2.5 mg/dL (1.8-2.4) Glucose (Fingerstick) 130 mg/dL (70-99) 125 mg/dL (70-99) White Blood Count 6.8 x10^3/uL (4.0-11.0) Red Blood Count 2.67 x10^6/uL (3.50-5.40) Hematocrit 21.6 % (36.0-47.0) Mean Corpuscular Volume 81 fL (79-100) Mean Corpuscular Hemoglobin 27 pg (25-35) Mean Corpuscular Hemoglobin Concent 34 g/dL (31-37) Red Cell Distribution Width 16.4 % (11.5-14.5) Platelet Count 268 x10^3/uL (140-400) Laboratory Tests Test 03/09/22 11:49 03/09/22 17:30 03/10/22 05:20 Glucose (Fingerstick) 130 mg/dL (70-99) 125 mg/dL (70-99) White Blood Count 6.8 x10^3/uL (4.0-11.0) Red Blood Count 2.67 x10^6/uL (3.50-5.40) Hemoglobin 7.3 g/dL (12.0-15.5) Hematocrit 21.6 % (36.0-47.0) Mean Corpuscular Volume 81 fL (79-100) Mean Corpuscular Hemoglobin 27 pg (25-35) Mean Corpuscular Hemoglobin Concent 34 g/dL (31-37) Red Cell Distribution Width 16.4 % (11.5-14.5) Platelet Count 268 x10^3/uL (140-400) Sodium Level 135 mmol/L (136-145) Potassium Level 4.2 mmol/L (3.5-5.1) Chloride Level 104 mmol/L (98-107) Carbon Dioxide Level 25 mmol/L (21-32) Anion Gap 6 (6-14) Blood Urea Nitrogen 13 mg/dL (7-20) Creatinine 1.2 mg/dL (0.6-1.0) Estimated GFR (Cockcroft-Gault) 51.8 Glucose Level 129 mg/dL (70-99) Calcium Level 6.5 mg/dL (8.5-10.1) Phosphorus Level 3.0 mg/dL (2.6-4.7) Magnesium Level 2.5 mg/dL (1.8-2.4) Medications Active Scripts Medications Dose Route/Sig Max Daily Dose Days Date Category Isosorbide Mononitrate Er (Isosorbide Mononitrate) 30 Mg Tab.er.24h 1 Tab PO DAILY 12/24/21 Reported Protonix (Pantoprazole Sodium) 40 Mg Tablet.dr 40 Mg PO DAILYAC 12/24/21 Reported Carafate (Sucralfate) 1 Gm Tablet 1 Tab PO QIDACHS 30 12/24/21 Reported Ferrous Sulfate 325 Mg Tablet 1 Tab PO DAILY 60 12/24/21 Reported Coenzyme Q10 (Ubidecarenone) 200 Mg Capsule 200 Mg PO DAILY 04/13/14 Reported Nifedipine Er (Nifedipine) 60 Mg Tablet.er 60 Mg PO DAILY 04/13/14 Reported Carvedilol 25 Mg Tablet 25 Mg PO BID AC 04/13/14 Reported Comments Chest x-ray reviewed 03/09/2022. Mild increase in right pleural effusion. Impression . 1. Acute pulmonary embolism. 2. This is a patient who was diagnosed with pulmonary embolism and deep venous thrombosis in late November during her hospitalization at . She took Lovenox outpatient until December and then did not receive a refill of her Lovenox from . As a result, she has not been on anticoagulation. She now has a subsegmental pulmonary emboli involving the right and the left lung. No evidence of right heart strain. She will be on lifelong anticoagulation. 3. History of lower extremity deep venous thrombosis. Repeat venous Dopplers with bilateral lower extremity DVT. 4. 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 Never had biopsy done. 5. History of bacteremia secondary to iliopsoas abscess in the setting of bowel perforation due to cecal mass. She underwent OSKAR drainage for 4 weeks and was hospitalized at . 6. No significant tobaccoism. 7. Bilateral pleural effusion, more on the right than on the left. Cannot exclude metastasis. Status post right thoracentesis. 8. Severe protein calorie malnutrition. 9. Positive blood culture. Plan . 1. Stable pulmonary status. 2. Status post thoracentesis. We will follow the results especially cytology to rule out malignant effusion. Cytology still pending. 3. She will need lifelong anticoagulation. Currently on oral Eliquis. 4. Venous Dopplers of lower extremity positive for DVT 5. Follow infectious disease recommendations. 6. Empiric antibiotics were started. Follow final blood culture results. 7. Discussed with RN. Follow-up chest x-ray with increased pleural effusion. Will await for cytology. If positive she may benefit from Pleurx catheter. Discussed with patient's daughter 03/07. At this point she is not interested in having cecal mass biopsy. Her goal is to improve her nutritional status and follow on the results of thoracentesis fluid to make sure is not related to cancer. QUYEN JOHNS MD March 10, 2022 10:53
[2022-03-10] MEDS: DRONABINOL 2.5 MG CAPSULE. PO SCH ×2 (11:29→16:53)
[2022-03-10] MEDS ORDERED: FUROSEMIDE 20 MG/2 ML VIAL. IVP ONE (11:30)
[2022-03-10] MEDS: TPN PER PHARMACY MC PRN ×2 (12:33→15:18)
--- NOTE | 2022-03-10 13:52 | PDOC ---
Infectious Disease Note Subjective: Subjective Patient states feels better denies any abdominal pain, shortness of breath or cough Vital Signs: Vital Signs Vital Signs Date Time Temp Pulse Resp B/P (MAP) Pulse Ox O2 Delivery O2 Flow Rate FiO2 03/10/22 11:00 98.3 93 18 99/65 (76) 94 Nasal Cannula 2.0 98.3 Physical Exam: PHYSICAL EXAM GENERAL: Alert, awake, comfortable female, lying in bed, cachectic, chronically ill-appearing, in no acute distress. HEENT: Normocephalic, atraumatic. Anicteric. No thrush. NECK: Supple. LUNGS: Decreased breath sounds at the bases. No wheezing. HEART: S1, S2. No gallops, no murmurs. ABDOMEN: Soft, nontender, nondistended. Right iliac drain with greenish mckinney drainage. EXTREMITIES: No edema, no cyanosis. CENTRAL NERVOUS SYSTEM: Alert, awake. PSYCHIATRIC: Calm and cooperative. LINES: PIV clean. Right IJ present. Left PICC line removed Medications: Inpatient Meds: Medications reviewed. Labs: Lab Laboratory Tests Test 03/09/22 17:30 03/10/22 05:20 Glucose (Fingerstick) 125 mg/dL (70-99) White Blood Count 6.8 x10^3/uL (4.0-11.0) Red Blood Count 2.67 x10^6/uL (3.50-5.40) Hemoglobin 7.3 g/dL (12.0-15.5) Hematocrit 21.6 % (36.0-47.0) Mean Corpuscular Volume 81 fL (79-100) Mean Corpuscular Hemoglobin 27 pg (25-35) Mean Corpuscular Hemoglobin Concent 34 g/dL (31-37) Red Cell Distribution Width 16.4 % (11.5-14.5) Platelet Count 268 x10^3/uL (140-400) Sodium Level 135 mmol/L (136-145) Potassium Level 4.2 mmol/L (3.5-5.1) Chloride Level 104 mmol/L (98-107) Carbon Dioxide Level 25 mmol/L (21-32) Anion Gap 6 (6-14) Blood Urea Nitrogen 13 mg/dL (7-20) Creatinine 1.2 mg/dL (0.6-1.0) Estimated GFR (Cockcroft-Gault) 51.8 Glucose Level 129 mg/dL (70-99) Calcium Level 6.5 mg/dL (8.5-10.1) Phosphorus Level 3.0 mg/dL (2.6-4.7) Magnesium Level 2.5 mg/dL (1.8-2.4) Objective: Assessment: 1. Bilateral pulmonary embolism. 2. Electrolyte imbalance. 3. 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 Partial record review done Patient has been treated for intra-abdominal abscess since November 2021 It appears that [facility] had discontinued her antibiotics sometime in December 2021 They had recommended that patient undergo repeat biopsy It appears patient was not on any antibiotics prior to admission 4. Coronary artery disease, status post coronary artery bypass grafting. 5. Status post permanent pacemaker. 6. History of congestive heart failure, hypertension. 7. History of COVID-19. 8. HISTORY OF ALLERGIES TO CEFTRIAXONE. 9 BC + with G + cocci and anaerobic gram-negative rods Plan: Plan of Care cont cipro and flagyl Continue daptomycin for now as patient has lines in place, Patient will need biopsy of cecal mass per [facility]. Overall prognosis very poor Consider palliative care CA EDDY MD March 10, 2022 13:52
[2022-03-10] MEDS: CEFEPIME HCL IV Push 2 GM VIAL. IVP SCH (14:03)
--- NOTE | 2022-03-10 14:10 | NUR ---
SS following for discharge planning. SS reviewed pt chart and discussed with pt RN. Pt is from home with family and is currently requiring oxygen at two liters nasal canula. Pt on TPN, IV Daptomycin, and IV Cefepime. Pulmonology and ID following. SS will continue to follow for discharge planning.
--- NOTE | 2022-03-10 15:16 | NUR ---
Pharmacy TPN Dosing Note S: REID RUIZ is a 86 year old F Currently receiving Central Continuous TPN started 03/08/22 B:Pertinent PMH: PERITONEAL ABSCESS, SEPSIS Height: 5 feet, 1 inches Weight: 55.5 kg Current diet: REGULAR LABS: Sodium: 135 Potassium: 4.2 Chloride: 104 Calcium: 6.5 Corrected Calcium: 9.06 Magnesium: 2.5 CO2: 25 SCr: 1.2 Glucose: 129 Albumin: 0.8 AST: 24 ALT: 18 TPN FORMULA: TPN TYPE: Central Continuous AMINO ACIDS: 60 gm DEXTROSE: 195 gm LIPIDS: 20 gm SODIUM CHLORIDE: 90 mEq SODIUM ACETATE: mEq SODIUM PHOSPHATE: 10 mmol POTASSIUM CHLORIDE: 50 mEq POTASSIUM ACETATE: mEq POTASSIUM PHOSPHATE: 13.6 mmol MAGNESIUM: 5 mEq CALCIUM: mEq INSULIN: units MULTIPLE VITAMIN: 10 ml TRACE ELEMENTS: 1 ml(s) TPN PLAN: Decrease magnesium, otherwise same. R: Continue TPN as ordered Will monitor electrolytes, glucose, and tolerance to TPN. PRO CARLTON, [facility], 03/10/22 [id number]
[2022-03-10] MEDS ORDERED: DEXTROSE 70% IV SCH (22:00)
[2022-03-10] MEDS ORDERED: [UNRECOGNIZED DRUG - OTHER] IV SCH (22:00)
[2022-03-10] MEDS ORDERED: TOTAL PARENTERAL NUTRITION IV SCH (22:00)
[2022-03-10] MEDS ORDERED: AMINO ACID IV SCH (22:00)
[2022-03-11] VITALS (13 sets, daily range): BP systolic 91–138; BP diastolic 52–86
[2022-03-11 06:54] LABS: ALBUMIN 0.7 g/dL (3.4-5.0); ALBUMIN/GLOBULIN RATIO 0.2 (1.0-1.7); CALCIUM 6.8 mg/dL (8.5-10.1); CREATININE 1.1 mg/dL (0.6-1.0); GFR 57.3; MAGNESIUM 2.3 mg/dL (1.8-2.4); PHOSPHORUS 3.4 mg/dL (2.6-4.7); POTASSIUM 3.9 mmol/L (3.5-5.1); TOTAL BILIRUBIN 0.2 mg/dL (0.2-1.0); TOTAL PROTEIN 4.4 g/dL (6.4-8.2)
[2022-03-11] MEDS: LACTOBACILLUS RHAMNOSUS GG 1 CAPSULE. PO SCH ×2 (08:35→21:16)
[2022-03-11] MEDS: APIXABAN 5 MG TABLET. PO SCH (08:36)
[2022-03-11 11:00] LABS: HEMATOCRIT 18.5 % (36.0-47.0); RED BLOOD COUNT 2.28 x10^6/uL (3.50-5.40); RED CELL DISTRIBUTION WIDTH 16.5 % (11.5-14.5); WHITE BLOOD COUNT 6.7 x10^3/uL (4.0-11.0)
[2022-03-11 11:17] LABS: HEMOGLOBIN 6.2 g/dL (12.0-15.5)
[2022-03-11] MEDS: DRONABINOL 2.5 MG CAPSULE. PO SCH ×2 (11:22→16:36)
--- NOTE | 2022-03-11 11:37 | PDOC ---
PULMONARY PROGRESS NOTES DATE: 03/11/22 TIME: 11:34 Subjective Patient denies any shortness of breath. Vitals Vital Signs Date Time Temp Pulse Resp B/P (MAP) Pulse Ox O2 Delivery O2 Flow Rate FiO2 03/11/22 08:00 Nasal Cannula 2.0 03/11/22 07:00 97.8 90 20 91/56 (68) 96 97.8 General: Alert, No acute distress Lungs: Other (Decreased breath sounds at the bases.) Cardiovascular: S1 Abdomen: Soft Neuro Exam: Alert Extremities: No Edema Skin: Warm Labs Laboratory Tests Test 03/09/22 11:49 03/09/22 17:30 03/10/22 05:20 03/11/22 06:20 Glucose (Fingerstick) 130 mg/dL (70-99) 125 mg/dL (70-99) White Blood Count 6.8 x10^3/uL (4.0-11.0) Red Blood Count 2.67 x10^6/uL (3.50-5.40) Hemoglobin 7.3 g/dL (12.0-15.5) Hematocrit 21.6 % (36.0-47.0) Mean Corpuscular Volume 81 fL (79-100) Mean Corpuscular Hemoglobin 27 pg (25-35) Mean Corpuscular Hemoglobin Concent 34 g/dL (31-37) Red Cell Distribution Width 16.4 % (11.5-14.5) Platelet Count 268 x10^3/uL (140-400) Sodium Level 135 mmol/L (136-145) 138 mmol/L (136-145) Potassium Level 4.2 mmol/L (3.5-5.1) 3.9 mmol/L (3.5-5.1) Chloride Level 104 mmol/L (98-107) 107 mmol/L (98-107) Carbon Dioxide Level 25 mmol/L (21-32) 23 mmol/L (21-32) Anion Gap 6 (6-14) 8 (6-14) Blood Urea Nitrogen 13 mg/dL (7-20) 14 mg/dL (7-20) Creatinine 1.2 mg/dL (0.6-1.0) 1.1 mg/dL (0.6-1.0) Estimated GFR (Cockcroft-Gault) 51.8 57.3 Glucose Level 129 mg/dL (70-99) 121 mg/dL (70-99) Calcium Level 6.5 mg/dL (8.5-10.1) 6.8 mg/dL (8.5-10.1) Phosphorus Level 3.0 mg/dL (2.6-4.7) 3.4 mg/dL (2.6-4.7) Magnesium Level 2.5 mg/dL (1.8-2.4) 2.3 mg/dL (1.8-2.4) BUN/Creatinine Ratio 13 (6-20) Total Bilirubin 0.2 mg/dL (0.2-1.0) Aspartate Amino Transf (AST/SGOT) 17 U/L (15-37) Alanine Aminotransferase (ALT/SGPT) 14 U/L (14-59) Alkaline Phosphatase 59 U/L (46-116) Total Protein 4.4 g/dL (6.4-8.2) Albumin 0.7 g/dL (3.4-5.0) Albumin/Globulin Ratio 0.2 (1.0-1.7) Triglycerides Level 72 mg/dL (0-150) Test 03/11/22 10:44 White Blood Count 6.7 x10^3/uL (4.0-11.0) Red Blood Count 2.28 x10^6/uL (3.50-5.40) Hemoglobin 6.2 g/dL (12.0-15.5) Hematocrit 18.5 % (36.0-47.0) Mean Corpuscular Volume 81 fL (79-100) Mean Corpuscular Hemoglobin 27 pg (25-35) Mean Corpuscular Hemoglobin Concent 33 g/dL (31-37) Red Cell Distribution Width 16.5 % (11.5-14.5) Platelet Count 240 x10^3/uL (140-400) Laboratory Tests Test 03/11/22 06:20 03/11/22 10:44 Sodium Level 138 mmol/L (136-145) Potassium Level 3.9 mmol/L (3.5-5.1) Chloride Level 107 mmol/L (98-107) Carbon Dioxide Level 23 mmol/L (21-32) Anion Gap 8 (6-14) Blood Urea Nitrogen 14 mg/dL (7-20) Creatinine 1.1 mg/dL (0.6-1.0) Estimated GFR (Cockcroft-Gault) 57.3 BUN/Creatinine Ratio 13 (6-20) Glucose Level 121 mg/dL (70-99) Calcium Level 6.8 mg/dL (8.5-10.1) Phosphorus Level 3.4 mg/dL (2.6-4.7) Magnesium Level 2.3 mg/dL (1.8-2.4) Total Bilirubin 0.2 mg/dL (0.2-1.0) Aspartate Amino Transf (AST/SGOT) 17 U/L (15-37) Alanine Aminotransferase (ALT/SGPT) 14 U/L (14-59) Alkaline Phosphatase 59 U/L (46-116) Total Protein 4.4 g/dL (6.4-8.2) Albumin 0.7 g/dL (3.4-5.0) Albumin/Globulin Ratio 0.2 (1.0-1.7) Triglycerides Level 72 mg/dL (0-150) White Blood Count 6.7 x10^3/uL (4.0-11.0) Red Blood Count 2.28 x10^6/uL (3.50-5.40) Hemoglobin 6.2 g/dL (12.0-15.5) Hematocrit 18.5 % (36.0-47.0) Mean Corpuscular Volume 81 fL (79-100) Mean Corpuscular Hemoglobin 27 pg (25-35) Mean Corpuscular Hemoglobin Concent 33 g/dL (31-37) Red Cell Distribution Width 16.5 % (11.5-14.5) Platelet Count 240 x10^3/uL (140-400) Medications Active Scripts Medications Dose Route/Sig Max Daily Dose Days Date Category Isosorbide Mononitrate Er (Isosorbide Mononitrate) 30 Mg Tab.er.24h 1 Tab PO DAILY 12/24/21 Reported Protonix (Pantoprazole Sodium) 40 Mg Tablet.dr 40 Mg PO DAILYAC 12/24/21 Reported Carafate (Sucralfate) 1 Gm Tablet 1 Tab PO QIDACHS 30 12/24/21 Reported Ferrous Sulfate 325 Mg Tablet 1 Tab PO DAILY 60 12/24/21 Reported Coenzyme Q10 (Ubidecarenone) 200 Mg Capsule 200 Mg PO DAILY 04/13/14 Reported Nifedipine Er (Nifedipine) 60 Mg Tablet.er 60 Mg PO DAILY 04/13/14 Reported Carvedilol 25 Mg Tablet 25 Mg PO BID AC 04/13/14 Reported Comments Chest x-ray reviewed 03/09/2022. Mild increase in right pleural effusion. Impression . 1. Acute pulmonary embolism. 2. This is a patient who was diagnosed with pulmonary embolism and deep venous thrombosis in late November during her hospitalization at . She took Lovenox outpatient until December and then did not receive a refill of her Lovenox from . As a result, she has not been on anticoagulation. She now has a subsegmental pulmonary emboli involving the right and the left lung. No evidence of right heart strain. She will be on lifelong anticoagulation. 3. History of lower extremity deep venous thrombosis. Repeat venous Dopplers with bilateral lower extremity DVT. 4. 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 Never had biopsy done. 5. History of bacteremia secondary to iliopsoas abscess in the setting of bowel perforation due to cecal mass. She underwent OSKAR drainage for 4 weeks and was hospitalized at . 6. No significant tobaccoism. 7. Bilateral pleural effusion, more on the right than on the left. Cannot exclude metastasis. Status post right thoracentesis. 8. Severe protein calorie malnutrition. 9. Positive blood culture. 10. COVID-19 positive. 11. Worsening anemia. Patient is on Eliquis Plan . 1. Stable pulmonary status. 2. Status post thoracentesis. We will follow the results especially cytology to rule out malignant effusion. Cytology still pending. 3. Patient's anemia has worsened. Eliquis on hold. We will closely follow hemoglobin. No obvious bleeding. May need an IVC filter. 4. Venous Dopplers of lower extremity positive for DVT 5. Follow infectious disease recommendations. 6. Follow final blood culture results. Follow infectious disease recommendations. 7. Discussed with RN. Follow-up chest x-ray with increased pleural effusion. Will await for cytology. If positive she may benefit from Pleurx catheter. will discuss with Dr. Barreto regarding anemia and need for anticoagulation and possibility of IVC filter. Addend: d/w Dr Barreto. Patient with GI bleed. Will always be at risk for GI bleeing due to cecal mass. 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 will consider IVC filter. will consult IR and talk to daughter QUYEN JOHNS MD March 11, 2022 11:37
--- NOTE | 2022-03-11 12:21 | PN ---
DATE: 03/10/2022 SUBJECTIVE: The patient is resting almost flat in bed, in no apparent distress, sleepy, but arousable. On questioning her, denied any complaint. The nursing staff did not voice any concern and stated that she has uneventful night. PHYSICAL EXAMINATION: GENERAL: When I examined her, she was pale, cachectic, but no jaundiced, cyanosed or thyromegaly. No jugular venous distention. No lower limb edema. VITAL SIGNS: Her heart rate was 101, blood pressure was 98/62, temperature 97.9, respiratory rate was 18 and oxygen saturation was 95% on 2 liters of oxygen. HEAD, EYES, EARS, NOSE, AND THROAT: Normocephalic, atraumatic. NECK: Supple. HEART: Normal first and second heart sounds. No gallop or murmur. CHEST: Clear to auscultation, no crepitation or rhonchi anteriorly. ABDOMEN: Scaphoid, soft, nontender. She has a drain in the right lower quadrant. NEUROLOGIC: She was sleepy, but arousable. All cranial nerves intact. She moves upper extremities without difficulty. She is mostly bedbound. She has bilateral lower extremity edema. Wounds in the right foot. Her intake over the last 24 hours was 2478, output was 450. LABORATORY DATA: As of this morning, her white cell count was 6.8, hemoglobin 7.3, hematocrit 22, MCV 81 and platelet count 268,000. Serum sodium was 135, potassium 4.2, chloride 104, bicarbonate 25, anion gap of 6, BUN 13, creatinine 1.2. Estimated GFR was 52 mL per minute. Her glucose 129, calcium was 6.5, phosphorus was 3 and magnesium was 2.5. ASSESSMENT: 1. Altered mental status is improved. The patient is now more awake, alert, responding appropriately. 2. Profound hypokalemia, resolved. Her serum potassium has improved to 4.4. 3. [id number] kidney injury, improving. Her creatinine is down to 1.2. 4. Questionable urinary tract infection. 5. Hypomagnesemia, resolved. Her most recent serum magnesium is up to 2.5. 6. Bilateral pleural effusion, status post thoracentesis and drainage of about 1000 mL of fluid from the right hemithorax. 7. 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 8. COVID-19 infection with bilateral deep vein thrombosis and bilateral pulmonary emboli. 9. D-dimer was high and a CT angio of the chest showed that she has bilateral pulmonary emboli, for which she was started on Lovenox, switched to heparin and now she is on apixaban 10, blood cultures were positive for gram-positive cocci. She is now on IV cefepime, daptomycin as well as Flagyl. Her Cipro was discontinued. 10. The patient is extremely malnourished and anorexic with poor oral intake. She is now on TPN. I did start her on Marinol. PLAN: My plan is to continue IV antibiotic. Continue with TPN. Continue to monitor her electrolytes and replenish them as needed. I will consult the dietitian to assist with her management. We need obviously to talk to the family as her overall prognosis is extremely poor and hospice is a reasonable option given her overall poor prognosis. TAIWO DR: Miguel TID: [id number]
[2022-03-11] MEDS: CEFEPIME HCL IV Push 2 GM VIAL. IVP SCH (12:56)
[2022-03-11] MEDS: TPN PER PHARMACY MC PRN (13:03)
--- NOTE | 2022-03-11 13:05 | NUR ---
Pharmacy TPN Dosing Note S: REID RUIZ is a 86 year old F Currently receiving Central Continuous TPN started 03/08/22 B:Pertinent PMH: PERITONEAL ABSCESS, SEPSIS Height: 5 feet, 1 inches Weight: 55.5 kg Current diet: REGULAR LABS: Sodium: 138 Potassium: 43.9 Chloride: 107 Calcium: 6.8 Corrected Calcium: 9.44 Magnesium: 2.2 CO2: 23 SCr: 1.1 Glucose: 121 Albumin: 0.7 AST: 17 ALT: 14 TPN FORMULA: TPN TYPE: Central Continuous AMINO ACIDS: 65 gm DEXTROSE: 210 gm LIPIDS: 30 gm SODIUM CHLORIDE: 90 mEq SODIUM PHOSPHATE: 10 mmol POTASSIUM CHLORIDE: 50 mEq POTASSIUM PHOSPHATE: 13.6 mmol MAGNESIUM: 5 mEq MULTIPLE VITAMIN: 10 ml TRACE ELEMENTS: 1 ml TPN PLAN: -Change macronutrients per marine extension agent recommendations. -Electrolytes appear WNL and stable, continue same lytes. -Serum TG 72, continue with increased lipid component. -BMP, mag, phos tomorrow. R: Continue TPN @ current rate and above formula. Will monitor electrolytes, glucose, and tolerance to TPN. BR[facility], 03/11/22 [id number]
[2022-03-11] MEDS: DAPTOmycin (GENERIC) IVPB 330 MG in IV NORMAL SALINE 50ML 50 ML IV SCH (14:00)
--- NOTE | 2022-03-11 14:28 | NUR ---
SS following up with discharge planning. SS reviewed pt chart and discussed with pt RN. Pt is currently requiring oxygen at two liters nasal canula. COVID19 positive on 03/05/2022. Pt on TPN, IV Daptomycin, and IV Cefepime. Blood today. Dr. Barreto discussing goals of care with pt's family. SS will continue to follow for discharge planning.
--- NOTE | 2022-03-11 15:52 | PDOC ---
Infectious Disease Note Subjective: Subjective Patient without complaints denies any abdominal pain, shortness of breath or cough Vital Signs: Vital Signs Vital Signs Date Time Temp Pulse Resp B/P (MAP) Pulse Ox O2 Delivery O2 Flow Rate FiO2 03/11/22 15:41 98.2 68 16 122/84 98.2 03/11/22 11:00 94 Nasal Cannula 2.0 Physical Exam: PHYSICAL EXAM GENERAL: Alert, awake, comfortable female, lying in bed, cachectic, chronically ill-appearing, in no acute distress. HEENT: Normocephalic, atraumatic. Anicteric. No thrush. NECK: Supple. LUNGS: Decreased breath sounds at the bases. No wheezing. HEART: S1, S2. No gallops, no murmurs. ABDOMEN: Soft, nontender, nondistended. Right iliac drain with greenish mckinney drainage. EXTREMITIES: No edema, no cyanosis. CENTRAL NERVOUS SYSTEM: Alert, awake. PSYCHIATRIC: Calm and cooperative. LINES: PIV clean. Right IJ present. Left PICC line removed Medications: Inpatient Meds: Medications reviewed. Labs: Lab Laboratory Tests Test 03/11/22 06:20 03/11/22 10:44 Sodium Level 138 mmol/L (136-145) Potassium Level 3.9 mmol/L (3.5-5.1) Chloride Level 107 mmol/L (98-107) Carbon Dioxide Level 23 mmol/L (21-32) Anion Gap 8 (6-14) Blood Urea Nitrogen 14 mg/dL (7-20) Creatinine 1.1 mg/dL (0.6-1.0) Estimated GFR (Cockcroft-Gault) 57.3 BUN/Creatinine Ratio 13 (6-20) Glucose Level 121 mg/dL (70-99) Calcium Level 6.8 mg/dL (8.5-10.1) Phosphorus Level 3.4 mg/dL (2.6-4.7) Magnesium Level 2.3 mg/dL (1.8-2.4) Total Bilirubin 0.2 mg/dL (0.2-1.0) Aspartate Amino Transf (AST/SGOT) 17 U/L (15-37) Alanine Aminotransferase (ALT/SGPT) 14 U/L (14-59) Alkaline Phosphatase 59 U/L (46-116) Total Protein 4.4 g/dL (6.4-8.2) Albumin 0.7 g/dL (3.4-5.0) Albumin/Globulin Ratio 0.2 (1.0-1.7) Triglycerides Level 72 mg/dL (0-150) White Blood Count 6.7 x10^3/uL (4.0-11.0) Red Blood Count 2.28 x10^6/uL (3.50-5.40) Hemoglobin 6.2 g/dL (12.0-15.5) Hematocrit 18.5 % (36.0-47.0) Mean Corpuscular Volume 81 fL (79-100) Mean Corpuscular Hemoglobin 27 pg (25-35) Mean Corpuscular Hemoglobin Concent 33 g/dL (31-37) Red Cell Distribution Width 16.5 % (11.5-14.5) Platelet Count 240 x10^3/uL (140-400) Objective: Assessment: 1. Bilateral pulmonary embolism. 2. Electrolyte imbalance. 3. 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 Partial record review done Patient has been treated for intra-abdominal abscess since November 2021 It appears that [facility] had discontinued her antibiotics sometime in December 2021 They had recommended that patient undergo repeat biopsy It appears patient was not on any antibiotics prior to admission 4. Coronary artery disease, status post coronary artery bypass grafting. 5. Status post permanent pacemaker. 6. History of congestive heart failure, hypertension. 7. History of COVID-19. 8. HISTORY OF ALLERGIES TO CEFTRIAXONE. 9 BC + with G + cocci and anaerobic gram-negative rods Plan: Plan of Care cont cipro and flagyl Continue daptomycin for now as patient has lines in place, Patient will need biopsy of cecal mass per [facility]. Overall prognosis very poor Consider palliative care CA EDDY MD March 11, 2022 15:52
[2022-03-11] MEDS ORDERED: DEXTROSE 70% IV SCH (22:00)
[2022-03-11] MEDS ORDERED: TOTAL PARENTERAL NUTRITION IV SCH (22:00)
[2022-03-11] MEDS ORDERED: [UNRECOGNIZED DRUG - OTHER] IV SCH (22:00)
[2022-03-11] MEDS ORDERED: AMINO ACID IV SCH (22:00)
[2022-03-12 00:11] LABS: HEMATOCRIT 22.3 % (36.0-47.0); HEMOGLOBIN 7.5 g/dL (12.0-15.5)
[2022-03-12 03:00] VITALS: BP 140/84
[2022-03-12 07:00] VITALS: BP 119/71
[2022-03-12 07:48] LABS: HEMOGLOBIN 7.4 g/dL (12.0-15.5); RED BLOOD COUNT 2.72 x10^6/uL (3.50-5.40); RED CELL DISTRIBUTION WIDTH 16.8 % (11.5-14.5); WHITE BLOOD COUNT 8.7 x10^3/uL (4.0-11.0)
[2022-03-12 08:16] LABS: CALCIUM 6.8 mg/dL (8.5-10.1); GFR 63.9; PHOSPHORUS 2.8 mg/dL (2.6-4.7); POTASSIUM 3.7 mmol/L (3.5-5.1)
--- NOTE | 2022-03-12 09:19 | PN ---
DATE: 03/12/2022 SUBJECTIVE: The patient is resting flat, sleeping comfortably, in no apparent distress. She dropped her hemoglobin yesterday from initial 9 and 27.6 on admission and her hemoglobin kept trending down slowly and yesterday hemoglobin dropped down to 6.2, hematocrit was 18.6. The nursing staff the night before stated that she has clots from her rectum and therefore, we held her Eliquis and she did receive 1 unit of packed RBCs and her hemoglobin and hematocrit went up to 7.5 and 22.3 and this morning 7.4 and 22. No further episodes of bleeding documented by nursing staff. I spoke with Dr. Larios and the plan was for her to have an IVC filter. In answering the query from the interventional radiologist, we did send blood for culture, but so far no growth after 4 days and she is already on antibiotic in the form of daptomycin, Flagyl and also cefepime. PHYSICAL EXAMINATION: GENERAL: When I examined her this morning, she was pale, somewhat cachectic, but not jaundiced or cyanosed, no lymphadenopathy, no thyromegaly, no jugular venous distention. No limb edema. VITAL SIGNS: Her heart rate was 90, blood pressure was 119/71, temperature was 98.3, respiratory rate was 20 and oxygen saturation was 93% on 2 liters of oxygen. HEAD, EYES, EARS, NOSE AND THROAT: Normocephalic, atraumatic. NECK: Supple. HEART: Showed normal first and second heart sounds. No gallop or murmur. CHEST: Clear to auscultation, no crepitation or rhonchi. ABDOMEN: Distended, soft, nontender. NEUROLOGIC: She was sleepy, but arousable. All cranial nerves are intact. She moves upper extremities to much good extent than lower extremities. She is mostly bed-bound. She has marked bilateral lower extremity swelling and wound on her right foot. Her intake over the last 24 hours was 350, output was 1100. LABORATORY DATA: As of this morning, her white cell count was 8.7, hemoglobin 7, hematocrit 22, MCV 81 and platelet count 232,000. Her chemistry this morning showed a serum sodium 139, potassium 3.7, chloride 110, bicarbonate 22, anion gap of 7, BUN 13, creatinine 1, estimated GFR was 64 mL per minute. Her glucose 133, calcium 6.8, phosphorus 2.8 and magnesium 2. ASSESSMENT: 1. Altered mental status has improved. The patient is now more awake, alert, and responding appropriately. 2. Profound hypokalemia, resolved. Her most recent serum potassium has improved to 4.4. 3. Acute on chronic kidney injury, improved. Her creatinine is down to 1 from 1.6. 4. Questionable urinary tract infection. 5. Hypomagnesemia, resolved. Her most recent serum magnesium was 2. 6. Bilateral pleural effusions, status post thoracentesis and drainage of about 1000 mL of fluid from the right hemithorax. 7. 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 8. COVID-19 infection, bilateral deep vein thrombosis and bilateral pulmonary emboli. 9. D-dimer was high and the CT angio of the chest showed that she has bilateral pulmonary emboli, for which she was started on Lovenox, switched to heparin and then to apixaban that was eventually discontinued. 10. Her blood cultures were positive for gram-positive cocci; however, so far no identification was made. She continues to be on IV cefepime, daptomycin and Flagyl. Her Cipro was discontinued. 11. The patient was extremely malnourished and anorexic with poor oral intake, for which she is on TPN and she is also on Marinol. 12. Acute blood loss anemia with gastrointestinal bleed, for which she had received 1 unit of packed RBCs. We discontinued her Eliquis and we will arrange for her to have an IVC filter. PLAN: Continue holding Eliquis. Continue with IV antibiotic. Continue with TPN. Continue with PT, OT. She is also positive for coronavirus by PCR, so I will order PT, OT when feasible and contact her daughter for IVC filter placement and consult the IR. EMILIE/JILL DR: Miguel TID: [id number]
--- NOTE | 2022-03-12 09:19 | PN ---
DATE: 03/11/2022 SUBJECTIVE: The patient is resting flat in bed, in no apparent distress, sleepy, but arousable. On questioning her, denied any complaint. The nursing staff stated that she has 2 bowel movements yesterday. One of them has some blood clots. PHYSICAL EXAMINATION: GENERAL: When I examined her, she looked pale, cachectic, but not jaundiced or cyanosed, no thyromegaly. No jugular venous distention. No lower limb edema. VITAL SIGNS: Her heart rate was 90, blood pressure was 91/56, temperature was 97.8, respiratory rate was 20 and oxygen saturation was 96% on 2 liters of oxygen by nasal cannula. HEAD, EYES, EARS, NOSE, AND THROAT: Showed she is normocephalic, atraumatic. NECK: Supple. HEART: Showed normal first and second heart sounds. No gallop, rub or murmur. CHEST: Clear to auscultation, no crepitation or rhonchi. ABDOMEN: Distended, soft, nontender. NEUROLOGIC: She was sleepy, but arousable. All cranial nerves intact. She moves upper extremities so much extremities. She is mostly bedbound with marked bilateral lower extremity edema and wounds on the right foot. Her intake was 2932, output was 600. LABORATORY DATA: As of this morning, her serum sodium was 138, potassium 3.9, chloride 107, bicarbonate 23, anion gap of 8, BUN 14, creatinine 1.1. Estimated GFR was 57 mL per minute. Her glucose was 121, calcium was 6.8, phosphorus 3.4, magnesium was 2.3. Total bilirubin, AST, ALT, alkaline phosphatase were normal. Total protein 4.4, albumin was 0.7, serum triglycerides were 72. Her pleural fluid showed total protein 1.2 and LDH was 125, consistent with transudate rather than exudate. ASSESSMENT: In summary, this is an 86-year-old female patient who was admitted: 1. With altered mental status that is improved, patient is more awake, alert. 2. Acute on chronic kidney injury. His creatinine has been steadily improving. Today's creatinine is 1.14. 3. Profound hypokalemia, resolved. Her most recent serum potassium is up to 4.4. 4. Questionable urinary tract infection. 5. Hypomagnesemia, resolved. Her most recent serum magnesium is 2.5. 6. Bilateral pleural effusion, status post thoracentesis and drainage of about 1000 mL of fluid from the right hemithorax. Urinalysis showed that the fluid is consistent with transudate rather than exudate. 7. Cecal mass and the right iliopsoas abscess, status post drainage. 8. The patient has had COVID-19 infection with bilateral deep vein thrombosis and bilateral pulmonary emboli in November of this year. 9. D-dimer was high and a CT angio of the chest showed that she has bilateral pulmonary emboli, for which we started her on Lovenox. She is now on apixaban. 10. Her blood cultures were positive for gram-positive cocci, which she is now on IV cefepime, daptomycin as well as Flagyl. 11. The patient was extremely malnourished and/or anorectic for which she was started on TPN. I added also Marinol. PLAN: To continue with TPN. Continue the antibiotic. Continue to monitor her electrolytes and replenish them as needed. I will monitor her H and H and if she dropped her H and H, we will transfuse her, may have to consider IVC filter placement instead of anticoagulation. EMILIE/MACIEJ/BEATRICE DR: Miguel TID: [id number]
[2022-03-12] MEDS: LACTOBACILLUS RHAMNOSUS GG 1 CAPSULE. PO SCH ×2 (09:36→21:20)
--- NOTE | 2022-03-12 10:00 | PDOC ---
PULMONARY PROGRESS NOTES DATE: 03/12/22 TIME: 09:56 Subjective Patient denies any shortness of breath. Vitals Vital Signs Date Time Temp Pulse Resp B/P (MAP) Pulse Ox O2 Delivery O2 Flow Rate FiO2 03/12/22 08:30 Nasal Cannula 3.0 03/12/22 07:00 98.3 90 20 119/71 (87) 93 98.3 General: Alert, No acute distress Lungs: Other (Decreased breath sounds at the bases.) Cardiovascular: S1 Abdomen: Soft Neuro Exam: Alert Extremities: No Edema Skin: Warm Labs Laboratory Tests Test 03/11/22 06:20 03/11/22 10:44 03/11/22 23:45 03/12/22 07:25 Sodium Level 138 mmol/L (136-145) 139 mmol/L (136-145) Potassium Level 3.9 mmol/L (3.5-5.1) 3.7 mmol/L (3.5-5.1) Chloride Level 107 mmol/L (98-107) 110 mmol/L (98-107) Carbon Dioxide Level 23 mmol/L (21-32) 22 mmol/L (21-32) Anion Gap 8 (6-14) 7 (6-14) Blood Urea Nitrogen 14 mg/dL (7-20) 13 mg/dL (7-20) Creatinine 1.1 mg/dL (0.6-1.0) 1.0 mg/dL (0.6-1.0) Estimated GFR (Cockcroft-Gault) 57.3 63.9 BUN/Creatinine Ratio 13 (6-20) Glucose Level 121 mg/dL (70-99) 133 mg/dL (70-99) Calcium Level 6.8 mg/dL (8.5-10.1) 6.8 mg/dL (8.5-10.1) Phosphorus Level 3.4 mg/dL (2.6-4.7) 2.8 mg/dL (2.6-4.7) Magnesium Level 2.3 mg/dL (1.8-2.4) 2.0 mg/dL (1.8-2.4) Total Bilirubin 0.2 mg/dL (0.2-1.0) Aspartate Amino Transf (AST/SGOT) 17 U/L (15-37) Alanine Aminotransferase (ALT/SGPT) 14 U/L (14-59) Alkaline Phosphatase 59 U/L (46-116) Total Protein 4.4 g/dL (6.4-8.2) Albumin 0.7 g/dL (3.4-5.0) Albumin/Globulin Ratio 0.2 (1.0-1.7) Triglycerides Level 72 mg/dL (0-150) White Blood Count 6.7 x10^3/uL (4.0-11.0) 8.7 x10^3/uL (4.0-11.0) Red Blood Count 2.28 x10^6/uL (3.50-5.40) 2.72 x10^6/uL (3.50-5.40) Hemoglobin 6.2 g/dL (12.0-15.5) 7.5 g/dL (12.0-15.5) 7.4 g/dL (12.0-15.5) Hematocrit 18.5 % (36.0-47.0) 22.3 % (36.0-47.0) 22.0 % (36.0-47.0) Mean Corpuscular Volume 81 fL (79-100) 81 fL (79-100) Mean Corpuscular Hemoglobin 27 pg (25-35) 27 pg (25-35) Mean Corpuscular Hemoglobin Concent 33 g/dL (31-37) 33 g/dL (31-37) 34 g/dL (31-37) Red Cell Distribution Width 16.5 % (11.5-14.5) 16.8 % (11.5-14.5) Platelet Count 240 x10^3/uL (140-400) 232 x10^3/uL (140-400) Laboratory Tests Test 03/11/22 10:44 03/11/22 23:45 03/12/22 07:25 White Blood Count 6.7 x10^3/uL (4.0-11.0) 8.7 x10^3/uL (4.0-11.0) Red Blood Count 2.28 x10^6/uL (3.50-5.40) 2.72 x10^6/uL (3.50-5.40) Hemoglobin 6.2 g/dL (12.0-15.5) 7.5 g/dL (12.0-15.5) 7.4 g/dL (12.0-15.5) Hematocrit 18.5 % (36.0-47.0) 22.3 % (36.0-47.0) 22.0 % (36.0-47.0) Mean Corpuscular Volume 81 fL (79-100) 81 fL (79-100) Mean Corpuscular Hemoglobin 27 pg (25-35) 27 pg (25-35) Mean Corpuscular Hemoglobin Concent 33 g/dL (31-37) 33 g/dL (31-37) 34 g/dL (31-37) Red Cell Distribution Width 16.5 % (11.5-14.5) 16.8 % (11.5-14.5) Platelet Count 240 x10^3/uL (140-400) 232 x10^3/uL (140-400) Sodium Level 139 mmol/L (136-145) Potassium Level 3.7 mmol/L (3.5-5.1) Chloride Level 110 mmol/L (98-107) Carbon Dioxide Level 22 mmol/L (21-32) Anion Gap 7 (6-14) Blood Urea Nitrogen 13 mg/dL (7-20) Creatinine 1.0 mg/dL (0.6-1.0) Estimated GFR (Cockcroft-Gault) 63.9 Glucose Level 133 mg/dL (70-99) Calcium Level 6.8 mg/dL (8.5-10.1) Phosphorus Level 2.8 mg/dL (2.6-4.7) Magnesium Level 2.0 mg/dL (1.8-2.4) Medications Active Scripts Medications Dose Route/Sig Max Daily Dose Days Date Category Isosorbide Mononitrate Er (Isosorbide Mononitrate) 30 Mg Tab.er.24h 1 Tab PO DAILY 12/24/21 Reported Protonix (Pantoprazole Sodium) 40 Mg Tablet.dr 40 Mg PO DAILYAC 12/24/21 Reported Carafate (Sucralfate) 1 Gm Tablet 1 Tab PO QIDACHS 30 12/24/21 Reported Ferrous Sulfate 325 Mg Tablet 1 Tab PO DAILY 60 12/24/21 Reported Coenzyme Q10 (Ubidecarenone) 200 Mg Capsule 200 Mg PO DAILY 04/13/14 Reported Nifedipine Er (Nifedipine) 60 Mg Tablet.er 60 Mg PO DAILY 04/13/14 Reported Carvedilol 25 Mg Tablet 25 Mg PO BID AC 04/13/14 Reported Comments Chest x-ray reviewed 03/09/2022. Mild increase in right pleural effusion. Impression . 1. Acute pulmonary embolism. / DVT 2. This is a patient who was diagnosed with pulmonary embolism and deep venous thrombosis in late November during her hospitalization at . She took Lovenox outpatient until December and then did not receive a refill of her Lovenox from . As a result, she has not been on anticoagulation. She now has a subsegmental pulmonary emboli involving the right and the left lung. No evidence of right heart strain. She will be on lifelong anticoagulation. 3. History of lower extremity deep venous thrombosis. Repeat venous Dopplers with bilateral lower extremity DVT. 4. 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 Never had biopsy done. 5. History of bacteremia secondary to iliopsoas abscess in the setting of bowel perforation due to cecal mass. She underwent OSKAR drainage for 4 weeks and was hospitalized at . 6. No significant tobaccoism. 7. Bilateral pleural effusion, more on the right than on the left. Cannot exclude metastasis. Status post right thoracentesis. 8. Severe protein calorie malnutrition. 9. Positive blood culture. 10. COVID-19 positive. 11. Worsening anemia. Plan . 1. Stable pulmonary status. 2. Status post thoracentesis. transudate, negative cytology, effusion due to low oncotic pressure 3. Patient's anemia has worsened. Eliquis on hold. Not a candidate for safe AC due to cecal mass, risk of bleeding. need an IVC filter. 4. Venous Dopplers of lower extremity positive for DVT 5. Follow infectious disease recommendations. 6. Follow final blood culture results. Follow infectious disease recommendations. 7. Discussed with RN. discuss with Dr. Barreto and Patients daughter regarding anemia and risk of bleeding with anticoagulation and need of IVC filter. she agrees to proceed. d/w QUYEN TRAMMELL MD March 12, 2022 10:00
[2022-03-12 11:00] VITALS: BP 132/74
--- NOTE | 2022-03-12 11:00 | NUR ---
SS following up with discharge planning. SS reviewed pt chart and discussed with pt RN. Pt is currently requiring oxygen at two liters nasal canula. COVID19 positive. Pt on TPN, IV Cefepime, and IV Daptomycin. Per RN, pt getting IVC filter with IR today. Physicians to discuss goals of care with pt and family. SS will continue to follow for discharge planning.
[2022-03-12] MEDS: TPN PER PHARMACY MC PRN (11:13)
[2022-03-12] MEDS: DRONABINOL 2.5 MG CAPSULE. PO SCH ×2 (11:39→16:32)
[2022-03-12] MEDS ORDERED: LIDOCAINE WITH 8.4% SOD BICARB 3 ML DISP.SYRIN. ONE (12:15)
[2022-03-12] MEDS ORDERED: IOHEXOL 240 MG/ML 50ML VIAL. ONE (12:16)
--- NOTE | 2022-03-12 12:23 | NUR ---
Pharmacy TPN Dosing Note S: REID RUIZ is a 86 year old F Currently receiving Central Continuous TPN started 03/08/22 B:Pertinent PMH: PERITONEAL ABSCESS, SEPSIS Height: 5 feet, 1 inches Weight: 55.5 kg Current diet: REGULAR LABS: Sodium: 137 Potassium: 3.7 Chloride: 110 Calcium: 6.8 Corrected Calcium: 9.44 Magnesium: 2.2 CO2: 22 SCr: 1.0 Glucose: 133 Albumin: 0.7 AST: 17 ALT: 14 TPN FORMULA: TPN TYPE: Central Continuous AMINO ACIDS: 65 gm DEXTROSE: 210 gm LIPIDS: 30 gm SODIUM CHLORIDE: 90 mEq SODIUM ACETATE: mEq SODIUM PHOSPHATE: 10 mmol POTASSIUM CHLORIDE: 30 mEq POTASSIUM ACETATE: 40 mEq POTASSIUM PHOSPHATE: 13.6 mmol MAGNESIUM: 5 mEq CALCIUM: mEq INSULIN: units MULTIPLE VITAMIN: 10 ml TRACE ELEMENTS: 1 ml(s) TPN PLAN: cont tpn at 63 ml/hr R: Continue TPN WITH KACETATE 40 MEQ AND KCL 30 MEQ Will monitor electrolytes, glucose, and tolerance to TPN. JOCELYNE LI Horacio, 03/12/22 [id number]
[2022-03-12] MEDS ORDERED: CONTRAST GIVEN. MC PRN (13:00)
[2022-03-12] MEDS ORDERED: IOHEXOL 240 MG/ML 50ML VIAL. IV ONE (13:00)
[2022-03-12] MEDS ORDERED: LIDOCAINE WITH 8.4% SOD BICARB 3 ML DISP.SYRIN. IJ ONE (13:00)
[2022-03-12] MEDS: CEFEPIME HCL IV Push 2 GM VIAL. IVP SCH (13:44)
--- NOTE | 2022-03-12 14:47 | PDOC ---
Infectious Disease Note Subjective: Subjective Patient complains of feeling cold today denies any fevers, abdominal pain, shortness of breath or cough Vital Signs: Vital Signs Vital Signs Date Time Temp Pulse Resp B/P (MAP) Pulse Ox O2 Delivery O2 Flow Rate FiO2 03/12/22 11:00 98.1 87 22 132/74 (93) 95 Nasal Cannula 2.0 98.1 Physical Exam: PHYSICAL EXAM GENERAL: Alert, awake, comfortable female, lying in bed, cachectic, chronically ill-appearing, in no acute distress. HEENT: Normocephalic, atraumatic. Anicteric. No thrush. NECK: Supple. LUNGS: Decreased breath sounds at the bases. No wheezing. HEART: S1, S2. No gallops, no murmurs. ABDOMEN: Soft, nontender, nondistended. Right iliac drain with greenish mckinney drainage. EXTREMITIES: No edema, no cyanosis. CENTRAL NERVOUS SYSTEM: Alert, awake. PSYCHIATRIC: Calm and cooperative. LINES: PIV clean. Right IJ present. Left PICC line removed Medications: Inpatient Meds: Medications reviewed. Labs: Lab Laboratory Tests Test 03/11/22 23:45 03/12/22 07:25 Hemoglobin 7.5 g/dL (12.0-15.5) 7.4 g/dL (12.0-15.5) Hematocrit 22.3 % (36.0-47.0) 22.0 % (36.0-47.0) Mean Corpuscular Hemoglobin Concent 33 g/dL (31-37) 34 g/dL (31-37) White Blood Count 8.7 x10^3/uL (4.0-11.0) Red Blood Count 2.72 x10^6/uL (3.50-5.40) Mean Corpuscular Volume 81 fL (79-100) Mean Corpuscular Hemoglobin 27 pg (25-35) Red Cell Distribution Width 16.8 % (11.5-14.5) Platelet Count 232 x10^3/uL (140-400) Sodium Level 139 mmol/L (136-145) Potassium Level 3.7 mmol/L (3.5-5.1) Chloride Level 110 mmol/L (98-107) Carbon Dioxide Level 22 mmol/L (21-32) Anion Gap 7 (6-14) Blood Urea Nitrogen 13 mg/dL (7-20) Creatinine 1.0 mg/dL (0.6-1.0) Estimated GFR (Cockcroft-Gault) 63.9 Glucose Level 133 mg/dL (70-99) Calcium Level 6.8 mg/dL (8.5-10.1) Phosphorus Level 2.8 mg/dL (2.6-4.7) Magnesium Level 2.0 mg/dL (1.8-2.4) Objective: Assessment: 1. Bilateral pulmonary embolism. 2. Status post thoracocentesis, transudate, fluid cultures negative 3. 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 Partial record review done Patient has been treated for intra-abdominal abscess since November 2021 It appears that ID had discontinued her antibiotics sometime in December 2021 They had recommended that patient undergo repeat biopsy It appears patient was not on any antibiotics prior to admission 4. Coronary artery disease, status post coronary artery bypass grafting. 5. Status post permanent pacemaker. 6. History of congestive heart failure, hypertension. 7. History of COVID-19. Multiple electrolyte abnormalities POA 8. HISTORY OF ALLERGIES TO CEFTRIAXONE. Patient has tolerated Unasyn well before here per discussion with pharmacy 9 polymicrobial bacteremia, could be contaminant but cannot ignore Clostridium perfringens bacteremia source appears to be intra-abdominal with cecal mass -Clostridium perfringens bacteremia 03/05/2022 at [facility], no GAURAV is available - Staph capitis,caprae and Staph epidermidis bacteremia 03/05/2022,likely contaminant Plan: Plan of Care Will start Unasyn, DC Flagyl and cefepime Continue daptomycin Patient will need biopsy of cecal mass per [facility]. Overall prognosis very poor Consider palliative care Patient to follow-up with [facility] surgery for further evaluation and treatment. CA EDDY MD March 12, 2022 14:47
[2022-03-12 15:00] VITALS: BP 128/62
--- NOTE | 2022-03-12 15:27 | RAD ---
PROCEDURE: IVC filter placement (CPT 90181) CVC nontunneled Central venous catheter exchange under fluoroscopy guidance (80631, 84326) INDICATION: Contraindication for anticoagulation treatment of pulmonary embolism secondary to GI blee ding. Flouroscopy-Radiation exposure: Total reference air kerma (in mGy): FILL Kerma Air Product (in mGycm2): FILL Contrast: mL [id number]. SEDATION: Under physician supervision, Versed and fentanyl were administered intravenously for moder ate sedation. Pulse oximetry, heart rate, and BP were continuously monitored by a dedicated qualifie d nurse. The physician spent TIME minutes of [id number] sedation time with the patient. Current history and physical and other medical records are reviewed prior to the procedure. CONSENT: Informed consent was obtained. The risks, benefits, potential complications and alternatives were reviewed and all questions answered. Estimated blood loss: 30 ml PROCEDURE: Prior to beginning the procedure, [place] Protocol was used to confirm the patient's maryam ntity and planned procedure. Maximum sterile barriers including cap, mask, hand hygiene, sterile charley ves, sterile gown, large sterile drape and cutaneous antisepsis were used. 1 percent lidocaine is administered at the right neck at the site to the right internal jugular centr al line. This was divided and wire access is obtained with fluoroscopy demonstrating the wire into th e IVC. Subsequently the filter sheath is advanced into the lower IVC. Subsequently, digital subtraction veno gram of the IVC was performed in frontal projection. The sheath was then advanced over a wire and utilizing its dilator into position at the level of the renal vein. Subsequently, an Alexandra filter is introduced through the sheath and deployed without diff iculty. Post deployment contrast injection through the sheath with DSA demonstrates satisfactory posi tion with no contrast extravasation. The introducer sheath was removed without over a wire. Subsequently over the wire into the right internal jugular vein and a triple-lumen central venous cat heter 20 cm long is a placed. The line was centered at the level of the cavoatrial junction with fluo roscopy guidance and is flushed. It is a secured to the skin with sutures.. No immediate complications. Findings: The venacavogram images demonstrate a normal IVC diameter of less than 2.8 cm with no thrombus. The renal veins are clearly identified and marked for position. The central venous catheter tip is at the cavoatrial junction. IMPRESSION: 1. Normal inferior venacavogram. 2. Successful deployment of an Rush retrievable filter in the infrarenal IVC. 3. Please refer the patient for filter retrieval, once the filter is not needed, or anticoagulation c an be given. Electronically signed by: Venkata Marcelino MD (03/12/2022 3:25 PM) [id number]
[2022-03-12 19:00] VITALS: BP 106/65
[2022-03-12] MEDS ORDERED: [UNRECOGNIZED DRUG - OTHER] IV SCH (22:00)
[2022-03-12] MEDS ORDERED: DEXTROSE 70% IV SCH (22:00)
[2022-03-12] MEDS ORDERED: AMINO ACID IV SCH (22:00)
[2022-03-12] MEDS ORDERED: TOTAL PARENTERAL NUTRITION IV SCH (22:00)
[2022-03-12 23:35] VITALS: BP 109/71
[2022-03-13] MEDS: AMPICILLIN/SULBACTAM 1.5 GM in IV NORMAL SALINE 50ML 50 ML IV SCH ×4 (00:47→18:11)
[2022-03-13 04:00] VITALS: BP 116/73
[2022-03-13 06:00] LABS: HEMATOCRIT 21.7 % (36.0-47.0); HEMOGLOBIN 7.2 g/dL (12.0-15.5); RED BLOOD COUNT 2.65 x10^6/uL (3.50-5.40); RED CELL DISTRIBUTION WIDTH 16.9 % (11.5-14.5); WHITE BLOOD COUNT 7.6 x10^3/uL (4.0-11.0)
[2022-03-13 06:18] LABS: CALCIUM 6.9 mg/dL (8.5-10.1); GFR 63.9; POTASSIUM 3.9 mmol/L (3.5-5.1)
[2022-03-13 07:00] VITALS: BP 96/73
[2022-03-13] MEDS: LACTOBACILLUS RHAMNOSUS GG 1 CAPSULE. PO SCH ×2 (09:29→21:00)
--- NOTE | 2022-03-13 09:36 | PDOC ---
PULMONARY PROGRESS NOTES DATE: 03/13/22 TIME: 09:36 Subjective Patient at times appears to be confused patient denies any shortness of breath. Vitals Vital Signs Date Time Temp Pulse Resp B/P (MAP) Pulse Ox O2 Delivery O2 Flow Rate FiO2 03/13/22 08:27 Nasal Cannula 3.0 03/13/22 07:00 97.6 93 18 96/73 (81) 93 97.6 ROS: No Nausea, No Chest Pain, No Abdominal Pain, No Increase Cough General: Alert, No acute distress Lungs: Other (Decreased breath sounds at the bases.) Cardiovascular: S1 Abdomen: Soft Neuro Exam: Alert Extremities: No Edema Skin: Warm Labs Laboratory Tests Test 03/11/22 10:44 03/11/22 23:45 03/12/22 07:25 03/12/22 16:28 White Blood Count 6.7 x10^3/uL (4.0-11.0) 8.7 x10^3/uL (4.0-11.0) Red Blood Count 2.28 x10^6/uL (3.50-5.40) 2.72 x10^6/uL (3.50-5.40) Hemoglobin 6.2 g/dL (12.0-15.5) 7.5 g/dL (12.0-15.5) 7.4 g/dL (12.0-15.5) 7.4 g/dL (12.0-15.5) Hematocrit 18.5 % (36.0-47.0) 22.3 % (36.0-47.0) 22.0 % (36.0-47.0) Mean Corpuscular Volume 81 fL (79-100) 81 fL (79-100) Mean Corpuscular Hemoglobin 27 pg (25-35) 27 pg (25-35) Mean Corpuscular Hemoglobin Concent 33 g/dL (31-37) 33 g/dL (31-37) 34 g/dL (31-37) Red Cell Distribution Width 16.5 % (11.5-14.5) 16.8 % (11.5-14.5) Platelet Count 240 x10^3/uL (140-400) 232 x10^3/uL (140-400) Sodium Level 139 mmol/L (136-145) Potassium Level 3.7 mmol/L (3.5-5.1) Chloride Level 110 mmol/L (98-107) Carbon Dioxide Level 22 mmol/L (21-32) Anion Gap 7 (6-14) Blood Urea Nitrogen 13 mg/dL (7-20) Creatinine 1.0 mg/dL (0.6-1.0) Estimated GFR (Cockcroft-Gault) 63.9 Glucose Level 133 mg/dL (70-99) Calcium Level 6.8 mg/dL (8.5-10.1) Phosphorus Level 2.8 mg/dL (2.6-4.7) Magnesium Level 2.0 mg/dL (1.8-2.4) Test 03/13/22 05:45 White Blood Count 7.6 x10^3/uL (4.0-11.0) Red Blood Count 2.65 x10^6/uL (3.50-5.40) Hemoglobin 7.2 g/dL (12.0-15.5) Hematocrit 21.7 % (36.0-47.0) Mean Corpuscular Volume 82 fL (79-100) Mean Corpuscular Hemoglobin 27 pg (25-35) Mean Corpuscular Hemoglobin Concent 33 g/dL (31-37) Red Cell Distribution Width 16.9 % (11.5-14.5) Platelet Count 232 x10^3/uL (140-400) Sodium Level 141 mmol/L (136-145) Potassium Level 3.9 mmol/L (3.5-5.1) Chloride Level 113 mmol/L (98-107) Carbon Dioxide Level 23 mmol/L (21-32) Anion Gap 5 (6-14) Blood Urea Nitrogen 14 mg/dL (7-20) Creatinine 1.0 mg/dL (0.6-1.0) Estimated GFR (Cockcroft-Gault) 63.9 Glucose Level 122 mg/dL (70-99) Calcium Level 6.9 mg/dL (8.5-10.1) Laboratory Tests Test 03/12/22 16:28 03/13/22 05:45 Hemoglobin 7.4 g/dL (12.0-15.5) 7.2 g/dL (12.0-15.5) White Blood Count 7.6 x10^3/uL (4.0-11.0) Red Blood Count 2.65 x10^6/uL (3.50-5.40) Hematocrit 21.7 % (36.0-47.0) Mean Corpuscular Volume 82 fL (79-100) Mean Corpuscular Hemoglobin 27 pg (25-35) Mean Corpuscular Hemoglobin Concent 33 g/dL (31-37) Red Cell Distribution Width 16.9 % (11.5-14.5) Platelet Count 232 x10^3/uL (140-400) Sodium Level 141 mmol/L (136-145) Potassium Level 3.9 mmol/L (3.5-5.1) Chloride Level 113 mmol/L (98-107) Carbon Dioxide Level 23 mmol/L (21-32) Anion Gap 5 (6-14) Blood Urea Nitrogen 14 mg/dL (7-20) Creatinine 1.0 mg/dL (0.6-1.0) Estimated GFR (Cockcroft-Gault) 63.9 Glucose Level 122 mg/dL (70-99) Calcium Level 6.9 mg/dL (8.5-10.1) Medications Active Scripts Medications Dose Route/Sig Max Daily Dose Days Date Category Isosorbide Mononitrate Er (Isosorbide Mononitrate) 30 Mg Tab.er.24h 1 Tab PO DAILY 12/24/21 Reported Protonix (Pantoprazole Sodium) 40 Mg Tablet.dr 40 Mg PO DAILYAC 12/24/21 Reported Carafate (Sucralfate) 1 Gm Tablet 1 Tab PO QIDACHS 30 12/24/21 Reported Ferrous Sulfate 325 Mg Tablet 1 Tab PO DAILY 60 12/24/21 Reported Coenzyme Q10 (Ubidecarenone) 200 Mg Capsule 200 Mg PO DAILY 04/13/14 Reported Nifedipine Er (Nifedipine) 60 Mg Tablet.er 60 Mg PO DAILY 04/13/14 Reported Carvedilol 25 Mg Tablet 25 Mg PO BID AC 04/13/14 Reported Comments Chest x-ray reviewed 03/09/2022. Mild increase in right pleural effusion. Impression . 1. Acute pulmonary embolism. / DVT status post IVC filter placement patient not a good candidate for long-term anticoagulation 2. This is a patient who was diagnosed with pulmonary embolism and deep venous thrombosis in late November patient was treated taken off of anticoagulation had a recurrent DVT 3. History of lower extremity deep venous thrombosis. Repeat venous Dopplers with bilateral lower extremity DVT. 4. 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 No biopsies performed to date 5. History of bacteremia secondary to iliopsoas abscess in the setting of bowel perforation due to cecal mass. She underwent OSKAR drainage for 4 weeks and was hospitalized at . 6. No significant tobaccoism. 7. Bilateral pleural effusion, more on the right than on the left. Cannot exclude metastasis. Status post right thoracentesis. 8. Severe protein calorie malnutrition. 9. Positive blood culture. 10. COVID-19 positive. 11. Worsening anemia. Plan . Updated 03/13 Continue current support Antibiotics per ID Work-up cecal mass as an outpatient Patient is to follow-up at once discharge Status post IVC filter placement, patient was not aware of this, I think she has underlying dementia TYSON BARRAGAN MD March 13, 2022 09:36
--- NOTE | 2022-03-13 10:55 | RAD ---
AP chest. HISTORY: Pleural effusions AP view was taken of the chest. There is a right central line unchanged. There is a left pacemaker wi thout change from the recent studies although the atrial lead is not in a typical position. There are moderate bilateral effusions. There is atelectasis in both lung bases. There is mild vascular conges tion. Pleural effusions have increased compared to March 09. Been mild increase atelectasis or infiltrat e right upper lobe. IMPRESSION: 1. Pacing leads unchanged, atrial lead not in the typical position. 2. Moderate to large bilateral effusions with mild worsening. 3. Mild vascular congestion. 4. Little change atelectasis in both lung bases. 5. Mild increased right upper lobe atelectasis or infiltrate. Electronically signed by: Tomas James MD (03/13/2022 10:53 AM) [id number]
[2022-03-13 11:00] VITALS: BP 119/81
[2022-03-13] MEDS: TPN PER PHARMACY MC PRN (11:21)
--- NOTE | 2022-03-13 11:24 | NUR ---
Pharmacy TPN Dosing Note S: REID RUIZ is a 86 year old F Currently receiving Central Continuous TPN started 03/08/22 B:Pertinent PMH: PERITONEAL ABSCESS, SEPSIS Height: 5 feet, 1 inches Weight: 55.5 kg Current diet: REGULAR LABS: Sodium: 141 Potassium: 3.9 Chloride: 113 Calcium: 6.9 Corrected Calcium: 9.54 Magnesium: 2 CO2: 23 SCr: 1 Glucose: 122 Albumin: 0.7 AST: 17 ALT: 14 TPN FORMULA: TPN TYPE: Central Continuous AMINO ACIDS: 65 gm DEXTROSE: 210 gm LIPIDS: 30 gm SODIUM CHLORIDE: 90 mEq SODIUM PHOSPHATE: 10 mmol POTASSIUM ACETATE: 70 mEq POTASSIUM PHOSPHATE: 13.6 mmol MAGNESIUM: 5 mEq MULTIPLE VITAMIN: 10 ml TRACE ELEMENTS: 1 ml(s) TPN PLAN: Potassium chloride changed to acetate salt form. R: Change TPN per plan and ordered formula. Will monitor electrolytes, glucose, and tolerance to TPN. Alyssa Riddle Horacio, 03/13/22 [id number]
[2022-03-13] MEDS: DRONABINOL 2.5 MG CAPSULE. PO SCH ×2 (12:03→16:48)
[2022-03-13] MEDS: DAPTOmycin (GENERIC) IVPB 330 MG in IV NORMAL SALINE 50ML 50 ML IV SCH (13:32)
--- NOTE | 2022-03-13 14:07 | NUR ---
SS following up with discharge planning. SS reviewed pt chart and discussed with pt RN. Pt is currently requiring oxygen at two liters nasal canula. COVID19 positive on 03/05/2022. Pt on TPN, IV Ampicillin, and IV Daptomycin. IVC filter in place. Dr. Barreto spoke with family and family not agreeable to hospice at this time. Pt's family requested alf unit preferably in [place], [place]. Referrals sent to [facility] and [facility]. SS was notified that facilities cannot provide the TPN and dual IV antibiotics. Referrals sent to [facility], and [facility] and pt was declined at all facilities. [facility] out of network with pt's [employer] plan. SS discussed with Dr. Barreto and pt's family. Pt's family requesting referral to [facility], ; fax [phone]. Pt's family also requested benefits be run for home IV ABX and TPN. Referral sent to [facility], ; fax [phone], and [facility], ; fax [phone]. Referral sent to [facility]. SS will continue to follow for discharge planning.
[2022-03-13 15:00] VITALS: BP 104/54
--- NOTE | 2022-03-13 15:08 | PDOC ---
Infectious Disease Note Subjective: Subjective Patient complains of feeling cold today denies any fevers, abdominal pain, shortness of breath or cough Vital Signs: Vital Signs Vital Signs Date Time Temp Pulse Resp B/P (MAP) Pulse Ox O2 Delivery O2 Flow Rate FiO2 03/13/22 11:00 98.0 103 18 119/81 (94) 93 Nasal Cannula 2.0 98.0 Physical Exam: PHYSICAL EXAM GENERAL: Alert, awake, comfortable female, lying in bed, cachectic, chronically ill-appearing, in no acute distress. HEENT: Normocephalic, atraumatic. Anicteric. No thrush. NECK: Supple. LUNGS: Decreased breath sounds at the bases. No wheezing. HEART: S1, S2. No gallops, no murmurs. ABDOMEN: Soft, nontender, nondistended. Right iliac drain with greenish mckinney drainage. EXTREMITIES: No edema, no cyanosis. CENTRAL NERVOUS SYSTEM: Alert, awake. PSYCHIATRIC: Calm and cooperative. LINES: PIV clean. Right IJ present. Left PICC line removed Medications: Inpatient Meds: Medications reviewed. Labs: Lab Laboratory Tests Test 03/12/22 16:28 03/13/22 05:45 Hemoglobin 7.4 g/dL (12.0-15.5) 7.2 g/dL (12.0-15.5) White Blood Count 7.6 x10^3/uL (4.0-11.0) Red Blood Count 2.65 x10^6/uL (3.50-5.40) Hematocrit 21.7 % (36.0-47.0) Mean Corpuscular Volume 82 fL (79-100) Mean Corpuscular Hemoglobin 27 pg (25-35) Mean Corpuscular Hemoglobin Concent 33 g/dL (31-37) Red Cell Distribution Width 16.9 % (11.5-14.5) Platelet Count 232 x10^3/uL (140-400) Sodium Level 141 mmol/L (136-145) Potassium Level 3.9 mmol/L (3.5-5.1) Chloride Level 113 mmol/L (98-107) Carbon Dioxide Level 23 mmol/L (21-32) Anion Gap 5 (6-14) Blood Urea Nitrogen 14 mg/dL (7-20) Creatinine 1.0 mg/dL (0.6-1.0) Estimated GFR (Cockcroft-Gault) 63.9 Glucose Level 122 mg/dL (70-99) Calcium Level 6.9 mg/dL (8.5-10.1) Objective: Assessment: 1. Bilateral pulmonary embolism. 2. Status post thoracocentesis, transudate, fluid cultures negative 3. 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 Partial record review done Patient has been treated for intra-abdominal abscess since November 2021 It appears that ID had discontinued her antibiotics sometime in December 2021 They had recommended that patient undergo repeat biopsy It appears patient was not on any antibiotics prior to admission 4. Coronary artery disease, status post coronary artery bypass grafting. 5. Status post permanent pacemaker. 6. History of congestive heart failure, hypertension. 7. History of COVID-19. Multiple electrolyte abnormalities POA 8. HISTORY OF ALLERGIES TO CEFTRIAXONE. Patient has tolerated Unasyn well be fore here per discussion with pharmacy 9 polymicrobial bacteremia, could be contaminant but cannot ignore Clostridium perfringens bacteremia source appears to be intra-abdominal with cecal mass -Clostridium perfringens bacteremia 03/05/2022 at [facility], no GAURAV is available - Staph capitis,caprae and Staph epidermidis bacteremia 03/05/2022,likely contaminant Plan: Plan of Care Cont Unasyn, Continue daptomycin Patient will need biopsy of cecal mass per [facility]. Patient to follow-up with [facility] surgery for further evaluation and treatment. Central line changed on 03/12/2022 per discussion with RN Status post IVC placement Overall prognosis very poor Consider palliative care CA EDDY MD March 13, 2022 15:08
[2022-03-13 19:00] VITALS: BP 83/61
[2022-03-13] MEDS ORDERED: DEXTROSE 70% IV SCH (22:00)
[2022-03-13] MEDS ORDERED: AMINO ACID IV SCH (22:00)
[2022-03-13] MEDS ORDERED: TOTAL PARENTERAL NUTRITION IV SCH (22:00)
[2022-03-13] MEDS ORDERED: [UNRECOGNIZED DRUG - OTHER] IV SCH (22:00)
[2022-03-13 23:00] VITALS: BP 116/66
[2022-03-14 03:00] VITALS: BP 103/56
[2022-03-14] MEDS: AMPICILLIN/SULBACTAM 1.5 GM in IV NORMAL SALINE 50ML 50 ML IV SCH ×5 (03:30→23:49)
--- NOTE | 2022-03-14 04:29 | PN ---
DATE: 03/13/2022 SUBJECTIVE: The patient is resting, slightly propped up in bed, in no apparent distress. She is awake, alert. On questioning her, she did complain that she is short of breath. Denied any chest pain. Does have also cough that is mostly dry. Nursing staff stated she continued to have bloody stool. PHYSICAL EXAMINATION: GENERAL: When I examined her, she looked pale, cachectic, but not jaundiced, cyanosed, no thyromegaly. No jugular venous distention. No lower limb edema. VITAL SIGNS: Her heart rate was 93, blood pressure was 96/73, temperature 97.6, respiratory rate was 18 and oxygen saturation was 93% on 3 liters of oxygen. HEAD, EYES, EARS, NOSE AND THROAT: Normocephalic, atraumatic. NECK: Supple. HEART: Normal first and second heart sounds. No gallop, rub or murmur. CHEST: Clear to auscultation, no crepitation or rhonchi. ABDOMEN: Distended, soft, nontender. NEUROLOGIC: She was grossly intact. All her cranial nerves are intact. She moves upper extremities without difficulty. She is mostly bedbound. She has bilateral lower extremity edema. Her intake was 850, output was incompletely recorded. LABORATORY DATA: Her lab work this morning showed a white cell count 7.6, hemoglobin 7.2, hematocrit 22, MCV 82 and platelet count 232,000. Her chemistry showed a serum sodium 141, potassium 3.9, chloride 113, bicarbonate 23, anion gap of 5, BUN 14, creatinine 1, estimated GFR was 64 mL per minute. Her glucose 122 and calcium was 6.9. ASSESSMENT: 1. Altered mental status - improved. The patient is now more awake, alert. 2. Acute on chronic kidney injury. Her creatinine has been steadily improving and today his creatinine is 1.1. 3. Profound hypokalemia, resolved. Her most recent serum potassium is up to 4.4. 4. Questionable urinary tract infection. 5. Hypomagnesemia, resolved. Her most recent serum magnesium was 2.5. 6. Bilateral pleural effusion, status post thoracentesis and drainage of about 1000 mL of fluid from the right hemithorax. The analysis of the pleural fluid is consistent with transudate than exudate. 7. Cecal mass and right iliopsoas abscess, status post drainage. 8. The patient has COVID-19 infection, bilateral deep vein thrombosis and pulmonary emboli in November of this year. 9. D-dimer was high and the CT angio of the chest showed that the patient has bilateral pulmonary emboli, which she was started on Lovenox and switched to apixaban. 10. Her blood cultures were positive for gram-positive cocci; however, all her cultures were negative. 11. The patient was extremely malnourished and anorectic for which she was started on TPN and we added also Marinol. 12. The patient has blood loss anemia and was not safe to be anticoagulated and therefore she underwent an inferior vena cava filter placement successfully yesterday. 13. The patient tested positive for coronavirus by PCR. PLAN: My plan is to do a chest x-ray to see if there is an accumulation of her pleural fluid as she is complaining of shortness of breath and she obviously eventually needs to be transferred to a custodial facility that can cater for TPN and IV antibiotic. TAIWO DR: Miguel TID: [id number]
[2022-03-14 06:15] LABS: GFR 63.9; POTASSIUM 4.3 mmol/L (3.5-5.1)
[2022-03-14 06:16] LABS: MAGNESIUM 1.9 mg/dL (1.8-2.4); PHOSPHORUS 2.2 mg/dL (2.6-4.7)
[2022-03-14 06:40] LABS: HEMATOCRIT 23.3 % (36.0-47.0); HEMOGLOBIN 7.6 g/dL (12.0-15.5); RED BLOOD COUNT 2.85 x10^6/uL (3.50-5.40); WHITE BLOOD COUNT 15.1 x10^3/uL (4.0-11.0)
[2022-03-14 07:00] VITALS: BP 99/69
--- NOTE | 2022-03-14 09:07 | PDOC ---
PULMONARY PROGRESS NOTES DATE: 03/14/22 TIME: 09:06 Subjective Patient remains confused Not more short of air Vitals Vital Signs Date Time Temp Pulse Resp B/P (MAP) Pulse Ox O2 Delivery O2 Flow Rate FiO2 03/14/22 07:00 98.2 108 18 99/69 (79) 96 Nasal Cannula 3.0 98.2 ROS: No Nausea, No Chest Pain, No Abdominal Pain, No Increase Cough General: Alert, No acute distress Lungs: Other (Decreased breath sounds at the bases.) Cardiovascular: S1 Abdomen: Soft Neuro Exam: Alert Extremities: No Edema Skin: Warm Labs Laboratory Tests Test 03/12/22 16:28 03/13/22 05:45 03/13/22 15:17 03/14/22 05:05 Hemoglobin 7.4 g/dL (12.0-15.5) 7.2 g/dL (12.0-15.5) 7.6 g/dL (12.0-15.5) 7.6 g/dL (12.0-15.5) White Blood Count 7.6 x10^3/uL (4.0-11.0) 15.1 x10^3/uL (4.0-11.0) Red Blood Count 2.65 x10^6/uL (3.50-5.40) 2.85 x10^6/uL (3.50-5.40) Hematocrit 21.7 % (36.0-47.0) 23.3 % (36.0-47.0) Mean Corpuscular Volume 82 fL (79-100) 82 fL (79-100) Mean Corpuscular Hemoglobin 27 pg (25-35) 27 pg (25-35) Mean Corpuscular Hemoglobin Concent 33 g/dL (31-37) 33 g/dL (31-37) Red Cell Distribution Width 16.9 % (11.5-14.5) 17.0 % (11.5-14.5) Platelet Count 232 x10^3/uL (140-400) 251 x10^3/uL (140-400) Sodium Level 141 mmol/L (136-145) 142 mmol/L (136-145) Potassium Level 3.9 mmol/L (3.5-5.1) 4.3 mmol/L (3.5-5.1) Chloride Level 113 mmol/L (98-107) 114 mmol/L (98-107) Carbon Dioxide Level 23 mmol/L (21-32) 20 mmol/L (21-32) Anion Gap 5 (6-14) 8 (6-14) Blood Urea Nitrogen 14 mg/dL (7-20) 16 mg/dL (7-20) Creatinine 1.0 mg/dL (0.6-1.0) 1.0 mg/dL (0.6-1.0) Estimated GFR (Cockcroft-Gault) 63.9 63.9 Glucose Level 122 mg/dL (70-99) 162 mg/dL (70-99) Calcium Level 6.9 mg/dL (8.5-10.1) 7.0 mg/dL (8.5-10.1) Phosphorus Level 2.2 mg/dL (2.6-4.7) Magnesium Level 1.9 mg/dL (1.8-2.4) Creatine Kinase 39 U/L (26-192) Laboratory Tests Test 03/13/22 15:17 03/14/22 05:05 Hemoglobin 7.6 g/dL (12.0-15.5) 7.6 g/dL (12.0-15.5) White Blood Count 15.1 x10^3/uL (4.0-11.0) Red Blood Count 2.85 x10^6/uL (3.50-5.40) Hematocrit 23.3 % (36.0-47.0) Mean Corpuscular Volume 82 fL (79-100) Mean Corpuscular Hemoglobin 27 pg (25-35) Mean Corpuscular Hemoglobin Concent 33 g/dL (31-37) Red Cell Distribution Width 17.0 % (11.5-14.5) Platelet Count 251 x10^3/uL (140-400) Sodium Level 142 mmol/L (136-145) Potassium Level 4.3 mmol/L (3.5-5.1) Chloride Level 114 mmol/L (98-107) Carbon Dioxide Level 20 mmol/L (21-32) Anion Gap 8 (6-14) Blood Urea Nitrogen 16 mg/dL (7-20) Creatinine 1.0 mg/dL (0.6-1.0) Estimated GFR (Cockcroft-Gault) 63.9 Glucose Level 162 mg/dL (70-99) Calcium Level 7.0 mg/dL (8.5-10.1) Phosphorus Level 2.2 mg/dL (2.6-4.7) Magnesium Level 1.9 mg/dL (1.8-2.4) Creatine Kinase 39 U/L (26-192) Medications Active Scripts Medications Dose Route/Sig Max Daily Dose Days Date Category Isosorbide Mononitrate Er (Isosorbide Mononitrate) 30 Mg Tab.er.24h 1 Tab PO DAILY 12/24/21 Reported Protonix (Pantoprazole Sodium) 40 Mg Tablet.dr 40 Mg PO DAILYAC 12/24/21 Reported Carafate (Sucralfate) 1 Gm Tablet 1 Tab PO QIDACHS 30 12/24/21 Reported Ferrous Sulfate 325 Mg Tablet 1 Tab PO DAILY 60 12/24/21 Reported Coenzyme Q10 (Ubidecarenone) 200 Mg Capsule 200 Mg PO DAILY 04/13/14 Reported Nifedipine Er (Nifedipine) 60 Mg Tablet.er 60 Mg PO DAILY 04/13/14 Reported Carvedilol 25 Mg Tablet 25 Mg PO BID AC 04/13/14 Reported Comments Chest x-ray reviewed 03/09/2022. Mild increase in right pleural effusion. Impression . 1. Acute pulmonary embolism. / DVT status post IVC filter placement patient not a good candidate for long-term anticoagulation 2. This is a patient who was diagnosed with pulmonary embolism and deep venous thrombosis in late November patient was treated taken off of anticoagulation had a recurrent DVT 3. History of lower extremity deep venous thrombosis. Repeat venous Dopplers with bilateral lower extremity DVT. 4. 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 No biopsies performed to date 5. History of bacteremia secondary to iliopsoas abscess in the setting of bowel perforation due to cecal mass. She underwent OSKAR drainage for 4 weeks and was hospitalized at . 6. No significant tobaccoism. 7. Bilateral pleural effusion status postthoracentesis pleural fluid analysis compatible with transudative process 8. Severe protein calorie malnutrition. 9. Positive blood culture. 10. COVID-19 positive. 11. Worsening anemia. 12. Metabolic encephalopathy, dementia 13. Acute on chronic kidney injury Plan . Updated 03/[address] Barreto and social service Family trying to decide on best option Continue current support Antibiotics per ID Work-up cecal mass as an outpatient Patient is to follow-up at [facility] once discharge Status post IVC filter placement, patient was not aware of this, I think she has underlying dementia Follow-up on pleural fluid analysis TYSON BARRAGAN MD March 14, 2022 09:07
--- NOTE | 2022-03-14 09:48 | NUR ---
Wound/Ostomy Care Wound Type/Assessment: Wound care follow up for right heel and coccyx wound. Coccyx is resolved with pale pink scar tissue. Right heel has eschar and slough present with pale pink wound bed. Cleansed, pictured and measured, and redressed wound. Pt had large, continuous, occult BM during cares, RN notified Treatment Recommendations/Plan: Cleanse wound, apply saline moistened hydrofera blue to wound bed, cover with foam dressing. Change every 2-3 days. Education provided: PU prevention and WC POC discussed with RN and patient. Offloading surface/device: Heel medix boot ordered, heels floated on pillow, Pt left on back for breakfast Recommended Referrals/Tests: Pt may need bedside debridement next week if still admitted Discharge Recommendations for dressings: see above
--- NOTE | 2022-03-14 10:33 | PN ---
DATE: 03/14/2022 SUBJECTIVE: The patient is an 86-year-old -[place] male patient who was admitted with altered mental status. When I saw her, she was complaining of increasing shortness of breath and I did repeat her chest x-ray, which showed that she has moderate to large bilateral effusion with mild worsening. She did have a thoracentesis and about 1000 mL of fluid was removed from her right hemithorax shortly after admission. She is on TPN, continued to be extremely anoretic, severe poor appetite, severe protein-calorie malnutrition. Continue to have bloody stools. We did place an inferior vena cava filter and stopped her Eliquis; however, the daughter is not willing to consider hospice and the patient was not accepted in any of the long term facility as she is on TPN and multiple antibiotics. PHYSICAL EXAMINATION: GENERAL: When I examined her this morning, she was pale, somewhat cachectic, but not jaundiced, cyanosed or thyromegaly. No jugular venous distention. No lower limb edema. VITAL SIGNS: Her heart rate was 108, blood pressure was 99/69, temperature was 98.2, respiratory rate was 18 and oxygen saturation was 96% on 3 liters of oxygen. HEAD, EYES, EARS, NOSE AND THROAT: Normocephalic, atraumatic. NECK: Supple. HEART: Showed normal first and second heart sounds. No gallop, rub or murmur. CHEST: Shows central trachea, equal bilateral expansion, air entry, vesicular breath sounds. No crepitation or rhonchi anteriorly. She has dull percussion noted and absent breath sounds on the right side posteriorly. ABDOMEN: Distended, soft, nontender with a drain in the right lower quadrant. NEUROLOGIC: She is awake, alert, responding appropriately. Cranial nerves intact. She moves upper extremities to much good extent than lower extremities. She is mostly bedbound. Her intake and output were incompletely recorded. LABORATORY DATA: As of this morning, her white cell count went up to 15,000, hemoglobin 7.6, hematocrit 23, MCV 82 and platelet count 251,000. Her chemistry showed a serum sodium 142, potassium 4.3, chloride 114, bicarbonate 20, anion gap of 8, BUN 16, creatinine 1, estimated GFR was 64 mL per minute. Her glucose 162, calcium was 7, phosphorus 2.2 and magnesium was 1.9. Her CK was 39. ASSESSMENT: 1. Altered mental status, improved. The patient is now more awake, alert, responding appropriately. 2. Acute on chronic kidney injury, resolved. Her creatinine has steadily improved and today, serum creatinine is 1 mg/dL. Profound hypokalemia, resolved. Her most recent serum potassium is up to 4.3, questionable urinary tract infection. 3. Hypomagnesemia, resolved. Her most recent serum magnesium is 2.5. 4. Bilateral pleural effusion that has worsened since last thoracentesis for which I will consult the interventional radiologist to again due to drain some of the fluid from the right hemithorax. 5. 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 6. The patient has COVID-19 infection with bilateral deep vein thrombosis and pulmonary emboli in November of this year. 7. On admission, her D-dimer was high and a CT angio of the chest showed that she has bilateral pulmonary emboli, for which we started her initially on Lovenox given that she started bleeding. We discontinued her Eliquis and placed an IVC filter successfully. 8. Her blood cultures were positive for gram-positive cocci; however, all her cultures are so far negative. 9. The patient was extremely malnourished and anorectic for which we started her on TPN. We added also Marinol without really much improvement. 10. The patient has blood loss anemia and did receive 1 unit of packed RBCs. She is no longer on any oral anticoagulation. 11. The patient has tested positive for coronavirus PCR on 09/05/2021. PLAN: To consult the interventional radiologist for another thoracentesis of the right hemithorax and our caser up is applying to [facility] and also possible home with home health and infusion assistance of an infusion company. LOUISA DR: Miguel TID: [id number]
[2022-03-14 11:00] VITALS: BP 107/65
[2022-03-14] MEDS: LACTOBACILLUS RHAMNOSUS GG 1 CAPSULE. PO SCH ×2 (11:12→20:35)
[2022-03-14] MEDS: DRONABINOL 2.5 MG CAPSULE. PO SCH ×2 (11:12→17:37)
[2022-03-14] MEDS: TPN PER PHARMACY MC PRN ×2 (11:26→11:28)
--- NOTE | 2022-03-14 11:30 | NUR ---
Pharmacy TPN Dosing Note S: REID RUIZ is a 86 year old F Currently receiving Central Continuous TPN started 03/08/22 B:Pertinent PMH: PERITONEAL ABSCESS, SEPSIS Height: 5 feet, 1 inches Weight: 55.5 kg Current diet: REGULAR LABS: Sodium: 142 Potassium: 4.3 Chloride: 114 Calcium: 7.0 Corrected Calcium: 9.64 Magnesium: 1.9 CO2: 20 SCr: 1 Glucose: 162 Albumin: 0.7 AST: 17 ALT: 14 TPN FORMULA: TPN TYPE: Central Continuous AMINO ACIDS: 65 gm DEXTROSE: 210 gm LIPIDS: 30 gm SODIUM CHLORIDE: 90 mEq SODIUM PHOSPHATE: 20 mmol POTASSIUM ACETATE: 70 mEq POTASSIUM PHOSPHATE: 13.6 mmol MAGNESIUM: 5 mEq MULTIPLE VITAMIN: 10 ml TRACE ELEMENTS: 1 ml(s) TPN PLAN: Sodium phosphate increased to 20mMol per bag due to low phosphate level. R: Change TPN Will monitor electrolytes, glucose, and tolerance to TPN. Brian Dumont [facility], 03/14/22 [id number]
--- NOTE | 2022-03-14 11:46 | RAD ---
PROCEDURE: Ultrasound guided thoracentesis (CPT 15733). INDICATION: 86 years Female right pleural effusion. CONSENT: Informed consent was obtained from the patient. The risks, benefits, potential complications and alternatives were reviewed and all questions answered to the patient's satisfaction. PROCEDURE: After maximal barrier technique sterile preparation and draping, 1% lidocaine was utilized for local anesthesia. An appropriate intercostal approach is selected based on preliminary scanning with ultrasound. Under live visualization with ultrasound, 5 Belarusian drainage catheter is introduced with trocar technique in to the pleural space. Image of proper location of the needle is documented. The needle is removed and the sheath is left in the pleural space. A total of 660 mL of serous fluid is drained. The sheath is removed at the end of the drainage proced ure. Fluid sample is sent to the lab for analysis. The patient tolerated the procedure well with no immediate complications. FINDINGS: Right nonloculated appearing pleural effusion. IMPRESSION: Successful ultrasound-guided Right thoracentesis. Electronically signed by: Venkata Marcelino MD (03/14/2022 11:43 AM) [id number]
--- NOTE | 2022-03-14 12:08 | PDOC ---
Infectious Disease Note Subjective: Subjective Patient resting quietly Denies any fever, chills, nausea, vomiting, abdominal pain Vital Signs: Vital Signs Vital Signs Date Time Temp Pulse Resp B/P (MAP) Pulse Ox O2 Delivery O2 Flow Rate FiO2 03/14/22 11:00 97.8 110 18 107/65 (79) 95 Nasal Cannula 3.0 97.8 Physical Exam: PHYSICAL EXAM GENERAL: Alert, awake, comfortable female, lying in bed, cachectic, chronically ill-appearing, in no acute distress. HEENT: Normocephalic, atraumatic. Anicteric. No thrush. NECK: Supple. LUNGS: Decreased breath sounds at the bases. No wheezing. HEART: S1, S2. No gallops, no murmurs. ABDOMEN: Soft, nontender, nondistended. Right iliac drain with greenish mckinney drainage. EXTREMITIES: No edema, no cyanosis. CENTRAL NERVOUS SYSTEM: Alert, awake. PSYCHIATRIC: Calm and cooperative. LINES: PIV clean. Right IJ present. Left PICC line removed Medications: Inpatient Meds: Medications reviewed. Labs: Lab Laboratory Tests Test 03/13/22 15:17 03/14/22 05:05 Hemoglobin 7.6 g/dL (12.0-15.5) 7.6 g/dL (12.0-15.5) White Blood Count 15.1 x10^3/uL (4.0-11.0) Red Blood Count 2.85 x10^6/uL (3.50-5.40) Hematocrit 23.3 % (36.0-47.0) Mean Corpuscular Volume 82 fL (79-100) Mean Corpuscular Hemoglobin 27 pg (25-35) Mean Corpuscular Hemoglobin Concent 33 g/dL (31-37) Red Cell Distribution Width 17.0 % (11.5-14.5) Platelet Count 251 x10^3/uL (140-400) Sodium Level 142 mmol/L (136-145) Potassium Level 4.3 mmol/L (3.5-5.1) Chloride Level 114 mmol/L (98-107) Carbon Dioxide Level 20 mmol/L (21-32) Anion Gap 8 (6-14) Blood Urea Nitrogen 16 mg/dL (7-20) Creatinine 1.0 mg/dL (0.6-1.0) Estimated GFR (Cockcroft-Gault) 63.9 Glucose Level 162 mg/dL (70-99) Calcium Level 7.0 mg/dL (8.5-10.1) Phosphorus Level 2.2 mg/dL (2.6-4.7) Magnesium Level 1.9 mg/dL (1.8-2.4) Creatine Kinase 39 U/L (26-192) Objective: Assessment: 1. Bilateral pulmonary embolism. Status post IVC placement 2. Status post thoracocentesis, transudate, fluid cultures negative. Repeat thoracocentesis 03/14/2022 3. 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 Partial record review done Patient has been treated for intra-abdominal abscess since November 2021 It appears that ID had discontinued her antibiotics sometime in December 2021 They had recommended that patient undergo repeat biopsy It appears patient was not on any antibiotics prior to admission 4. Coronary artery disease, status post coronary artery bypass grafting. 5. Status post permanent pacemaker. 6. History of congestive heart failure, hypertension. 7. History of COVID-19. Multiple electrolyte abnormalities POA 8. HISTORY OF ALLERGIES TO CEFTRIAXONE. Patient has tolerated Unasyn well before here per discussion with pharmacy 9 polymicrobial bacteremia, could be contaminant but cannot ignore Clostridium perfringens bacteremia source appears to be intra-abdominal with cecal mass -Clostridium perfringens bacteremia 03/05/2022 at [facility], no GAURAV is available - Staph capitis,caprae and Staph epidermidis bacteremia 03/05/2022,likely contaminant 10. Leukocytosis likely reactive Plan: Plan of Care Cont Unasyn while patient is here, will transition to oral Augmentin when ready for discharge DC daptomycin Trend WBC Status post thoracocentesis again today If patient has diarrhea check C. difficile Patient will need biopsy of cecal mass per [facility]. Patient to follow-up with [facility] surgery for further evaluation and treatment. Central line changed on 03/12/2022 per discussion with RN Overall prognosis very poor Consider palliative care CA EDDY MD March 14, 2022 12:08
--- NOTE | 2022-03-14 13:54 | NUR ---
SS following up with discharge planning. SS reviewed pt chart and discussed with pt RN. Pt is currently requiring oxygen at three liters nasal canula. Pt on TPN, IV Ampicillin, and IV Daptomycin. Pt had Thoracentesis today. Pt clinically accepted at [facility], ; fax [phone], pending insurance approval. SS discussed discharge planning with pt's granddaughter. Pt's family would like determination on LTACH from [employer]. Pt's family reporting that if [employer] denies LTACH they would like to pursue home infusions and home healthcare services. Pt covered at 100% for IV antibiotics and TPN with [facility], ; fax [phone]. Pt's family agreeable to home healthcare with [facility], ; fax [phone]. Pt's family contacting [place] to arrange Private Duty services in the home as well. Pt's family requesting script for hospital bed. Pt's RN notified. Pt will need PICC line if discharging to home. Referral sent to [facility]. SS will continue to follow for discharge planning.
[2022-03-14 15:00] VITALS: BP 99/55
[2022-03-14 19:00] VITALS: BP 98/58
[2022-03-14] MEDS ORDERED: [UNRECOGNIZED DRUG - OTHER] IV SCH (22:00)
[2022-03-14] MEDS ORDERED: AMINO ACID IV SCH (22:00)
[2022-03-14] MEDS ORDERED: TOTAL PARENTERAL NUTRITION IV SCH (22:00)
[2022-03-14] MEDS ORDERED: DEXTROSE 70% IV SCH (22:00)
[2022-03-14 23:00] VITALS: BP 78/54
[2022-03-15] VITALS (11 sets, daily range): BP systolic 87–123; BP diastolic 57–72
--- NOTE | 2022-03-15 03:21 | NUR ---
RN and tech in room to clean pt up as was incontinent - large amount of bloody clots noted coming from rectum. Pt cleaned up and repositioned to R side.
[2022-03-15 03:50] LABS: BASO % 0 % (0-3); EOS # 0.1 x10^3/uL (0.0-0.7); EOS % 1 % (0-3); HEMATOCRIT 19.1 % (36.0-47.0); LYMPH # 1.1 x10^3/uL (1.0-4.8); LYMPH % 8 % (24-48); MEAN CORPUSCULAR HEMOGLOBIN 28 pg (25-35); MEAN CORPUSCULAR HGB CONC 33 g/dL (31-37); MEAN CORPUSCULAR VOLUME 83 fL (79-100); MONO # 0.3 x10^3/uL (0.0-1.1); MONO % 2 % (0-9); NEUT # 12.5 x10^3/uL (1.8-7.7); NEUT % 89 % (31-73); PLATELET COUNT 193 x10^3/uL (140-400); RED BLOOD COUNT 2.32 x10^6/uL (3.50-5.40); RED CELL DISTRIBUTION WIDTH 16.9 % (11.5-14.5)
[2022-03-15 03:51] LABS: HEMOGLOBIN 6.4 g/dL (12.0-15.5)
[2022-03-15 04:08] LABS: ALBUMIN 0.6 g/dL (3.4-5.0); ALBUMIN/GLOBULIN RATIO 0.2 (1.0-1.7); CALCIUM 7.1 mg/dL (8.5-10.1); CREATININE 1.1 mg/dL (0.6-1.0); GFR 57.3; MAGNESIUM 1.8 mg/dL (1.8-2.4); POTASSIUM 4.8 mmol/L (3.5-5.1); TOTAL BILIRUBIN 0.2 mg/dL (0.2-1.0)
[2022-03-15] MEDS: AMPICILLIN/SULBACTAM 1.5 GM in IV NORMAL SALINE 50ML 50 ML IV SCH ×3 (06:00→17:24)
--- NOTE | 2022-03-15 07:40 | PDOC ---
PULMONARY PROGRESS NOTES DATE: 03/15/22 TIME: 07:39 Subjective No overnight events patient remains confused Not more short of air Vitals Vital Signs Date Time Temp Pulse Resp B/P (MAP) Pulse Ox O2 Delivery O2 Flow Rate FiO2 03/15/22 07:00 121 33 91/61 03/15/22 05:57 98.7 98.7 03/15/22 03:26 95 Nasal Cannula 03/14/22 18:53 3.0 ROS: No Nausea, No Chest Pain, No Abdominal Pain, No Increase Cough General: Alert, No acute distress Lungs: Other (Decreased breath sounds at the bases.) Cardiovascular: S1 Abdomen: Soft Neuro Exam: Alert Extremities: No Edema Skin: Warm Labs Laboratory Tests Test 03/13/22 15:17 03/14/22 05:05 03/14/22 15:18 03/15/22 03:35 Hemoglobin 7.6 g/dL (12.0-15.5) 7.6 g/dL (12.0-15.5) 7.6 g/dL (12.0-15.5) 6.4 g/dL (12.0-15.5) White Blood Count 15.1 x10^3/uL (4.0-11.0) 14.0 x10^3/uL (4.0-11.0) Red Blood Count 2.85 x10^6/uL (3.50-5.40) 2.32 x10^6/uL (3.50-5.40) Hematocrit 23.3 % (36.0-47.0) 19.1 % (36.0-47.0) Mean Corpuscular Volume 82 fL (79-100) 83 fL (79-100) Mean Corpuscular Hemoglobin 27 pg (25-35) 28 pg (25-35) Mean Corpuscular Hemoglobin Concent 33 g/dL (31-37) 33 g/dL (31-37) Red Cell Distribution Width 17.0 % (11.5-14.5) 16.9 % (11.5-14.5) Platelet Count 251 x10^3/uL (140-400) 193 x10^3/uL (140-400) Sodium Level 142 mmol/L (136-145) 144 mmol/L (136-145) Potassium Level 4.3 mmol/L (3.5-5.1) 4.8 mmol/L (3.5-5.1) Chloride Level 114 mmol/L (98-107) 114 mmol/L (98-107) Carbon Dioxide Level 20 mmol/L (21-32) 20 mmol/L (21-32) Anion Gap 8 (6-14) 10 (6-14) Blood Urea Nitrogen 16 mg/dL (7-20) 19 mg/dL (7-20) Creatinine 1.0 mg/dL (0.6-1.0) 1.1 mg/dL (0.6-1.0) Estimated GFR (Cockcroft-Gault) 63.9 57.3 Glucose Level 162 mg/dL (70-99) 137 mg/dL (70-99) Calcium Level 7.0 mg/dL (8.5-10.1) 7.1 mg/dL (8.5-10.1) Phosphorus Level 2.2 mg/dL (2.6-4.7) Magnesium Level 1.9 mg/dL (1.8-2.4) 1.8 mg/dL (1.8-2.4) Creatine Kinase 39 U/L (26-192) Neutrophils (%) (Auto) 89 % (31-73) Lymphocytes (%) (Auto) 8 % (24-48) Monocytes (%) (Auto) 2 % (0-9) Eosinophils (%) (Auto) 1 % (0-3) Basophils (%) (Auto) 0 % (0-3) Neutrophils # (Auto) 12.5 x10^3/uL (1.8-7.7) Lymphocytes # (Auto) 1.1 x10^3/uL (1.0-4.8) Monocytes # (Auto) 0.3 x10^3/uL (0.0-1.1) Eosinophils # (Auto) 0.1 x10^3/uL (0.0-0.7) Basophils # (Auto) 0.0 x10^3/uL (0.0-0.2) BUN/Creatinine Ratio 17 (6-20) Total Bilirubin 0.2 mg/dL (0.2-1.0) Aspartate Amino Transf (AST/SGOT) 16 U/L (15-37) Alanine Aminotransferase (ALT/SGPT) 8 U/L (14-59) Alkaline Phosphatase 60 U/L (46-116) Total Protein 4.0 g/dL (6.4-8.2) Albumin 0.6 g/dL (3.4-5.0) Albumin/Globulin Ratio 0.2 (1.0-1.7) Laboratory Tests Test 03/14/22 15:18 03/15/22 03:35 Hemoglobin 7.6 g/dL (12.0-15.5) 6.4 g/dL (12.0-15.5) White Blood Count 14.0 x10^3/uL (4.0-11.0) Red Blood Count 2.32 x10^6/uL (3.50-5.40) Hematocrit 19.1 % (36.0-47.0) Mean Corpuscular Volume 83 fL (79-100) Mean Corpuscular Hemoglobin 28 pg (25-35) Mean Corpuscular Hemoglobin Concent 33 g/dL (31-37) Red Cell Distribution Width 16.9 % (11.5-14.5) Platelet Count 193 x10^3/uL (140-400) Neutrophils (%) (Auto) 89 % (31-73) Lymphocytes (%) (Auto) 8 % (24-48) Monocytes (%) (Auto) 2 % (0-9) Eosinophils (%) (Auto) 1 % (0-3) Basophils (%) (Auto) 0 % (0-3) Neutrophils # (Auto) 12.5 x10^3/uL (1.8-7.7) Lymphocytes # (Auto) 1.1 x10^3/uL (1.0-4.8) Monocytes # (Auto) 0.3 x10^3/uL (0.0-1.1) Eosinophils # (Auto) 0.1 x10^3/uL (0.0-0.7) Basophils # (Auto) 0.0 x10^3/uL (0.0-0.2) Sodium Level 144 mmol/L (136-145) Potassium Level 4.8 mmol/L (3.5-5.1) Chloride Level 114 mmol/L (98-107) Carbon Dioxide Level 20 mmol/L (21-32) Anion Gap 10 (6-14) Blood Urea Nitrogen 19 mg/dL (7-20) Creatinine 1.1 mg/dL (0.6-1.0) Estimated GFR (Cockcroft-Gault) 57.3 BUN/Creatinine Ratio 17 (6-20) Glucose Level 137 mg/dL (70-99) Calcium Level 7.1 mg/dL (8.5-10.1) Magnesium Level 1.8 mg/dL (1.8-2.4) Total Bilirubin 0.2 mg/dL (0.2-1.0) Aspartate Amino Transf (AST/SGOT) 16 U/L (15-37) Alanine Aminotransferase (ALT/SGPT) 8 U/L (14-59) Alkaline Phosphatase 60 U/L (46-116) Total Protein 4.0 g/dL (6.4-8.2) Albumin 0.6 g/dL (3.4-5.0) Albumin/Globulin Ratio 0.2 (1.0-1.7) Medications Active Scripts Medications Dose Route/Sig Max Daily Dose Days Date Category Isosorbide Mononitrate Er (Isosorbide Mononitrate) 30 Mg Tab.er.24h 1 Tab PO DAILY 12/24/21 Reported Protonix (Pantoprazole Sodium) 40 Mg Tablet.dr 40 Mg PO DAILYAC 12/24/21 Reported Carafate (Sucralfate) 1 Gm Tablet 1 Tab PO QIDACHS 30 12/24/21 Reported Ferrous Sulfate 325 Mg Tablet 1 Tab PO DAILY 60 12/24/21 Reported Coenzyme Q10 (Ubidecarenone) 200 Mg Capsule 200 Mg PO DAILY 04/13/14 Reported Nifedipine Er (Nifedipine) 60 Mg Tablet.er 60 Mg PO DAILY 04/13/14 Reported Carvedilol 25 Mg Tablet 25 Mg PO BID AC 04/13/14 Reported Comments Chest x-ray reviewed 03/09/2022. Mild increase in right pleural effusion. Impression . 1. Acute pulmonary embolism. / DVT status post IVC filter placement patient not a good candidate for long-term anticoagulation 2. This is a patient who was diagnosed with pulmonary embolism and deep venous thrombosis in late November patient was treated taken off of anticoagulation had a recurrent DVT 3. History of lower extremity deep venous thrombosis. Repeat venous Dopplers with bilateral lower extremity DVT. 4. 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 No biopsies performed to date 5. History of bacteremia secondary to iliopsoas abscess in the setting of bowel perforation due to cecal mass. She underwent OSKAR drainage for 4 weeks and was hospitalized at . 6. No significant tobaccoism. 7. Bilateral pleural effusion status postthoracentesis pleural fluid analysis compatible with transudative process 8. Severe protein calorie malnutrition. 9. Positive blood culture. 10. COVID-19 positive. 11. Worsening anemia. 12. Metabolic encephalopathy, dementia 13. Acute on chronic kidney injury Plan . Updated 514 Continue current support Discussed with Dr. Barreto and social service yesterday Family trying to decide on best option Continue current support Antibiotics per ID Work-up cecal mass as an outpatient Patient is to follow-up at once discharge Status post IVC filter placement, patient was not aware of this, I think she has underlying dementia Follow-up on pleural fluid analysis TYSON BARRAGAN MD March 15, 2022 07:40
[2022-03-15] MEDS: LACTOBACILLUS RHAMNOSUS GG 1 CAPSULE. PO SCH ×2 (09:18→21:07)
[2022-03-15] MEDS: DRONABINOL 2.5 MG CAPSULE. PO SCH ×2 (12:02→17:23)
[2022-03-15] MEDS: TPN PER PHARMACY MC PRN (12:26)
--- NOTE | 2022-03-15 12:31 | NUR ---
Pharmacy TPN Dosing Note S: REID RUIZ is a 86 year old F Currently receiving Central Continuous TPN started 03/08/22 B:Pertinent PMH: PERITONEAL ABSCESS, SEPSIS Height: 5 feet, 1 inches Weight: 55.5 kg Current diet: REGULAR LABS: Sodium: 144 Potassium: 4.8 Chloride: 114 Calcium: 7.1 Corrected Calcium: 9.82 Magnesium: 1.8 CO2: 20 SCr: 1.1 Glucose: 137 Albumin: 0.6 AST: 16 ALT: 8 TPN FORMULA: TPN TYPE: Central Continuous AMINO ACIDS: 65 gm DEXTROSE: 210 gm LIPIDS: 30 gm SODIUM CHLORIDE: 20 mEq SODIUM ACETATE: 30 mEq SODIUM PHOSPHATE: 20 mmol POTASSIUM CHLORIDE: - mEq POTASSIUM ACETATE: 40 mEq POTASSIUM PHOSPHATE: 13.6 mmol MAGNESIUM: 5 mEq CALCIUM: mEq INSULIN: units MULTIPLE VITAMIN: 10 ml TRACE ELEMENTS: 1 ml(s) TPN PLAN: Sodium creeping up, will decrease in tpn and change some NaCl to NaAce. Potassium continues to rise, will decrease. R: Continue TPN as ordered Will monitor electrolytes, glucose, and tolerance to TPN. PRO CARLTON, [facility], 03/15/22 [id number]
[2022-03-15] MEDS: DAPTOmycin (GENERIC) IVPB 330 MG in IV NORMAL SALINE 50ML 50 ML IV SCH (14:08)
[2022-03-15 15:33] LABS: HEMATOCRIT 23.6 % (36.0-47.0); HEMOGLOBIN 7.9 g/dL (12.0-15.5); RED BLOOD COUNT 2.81 x10^6/uL (3.50-5.40); WHITE BLOOD COUNT 12.8 x10^3/uL (4.0-11.0)
--- NOTE | 2022-03-15 20:30 | PN ---
DATE: 03/15/2022 SUBJECTIVE: The patient is resting, slightly propped up in bed, in no apparent distress, sleepy, but arousable. She continued to have bloody stool and in fact, she has dropped her H and H this morning to 6.4 and 19 and did receive 1 unit of packed RBCs. She also underwent thoracentesis and about 660 mL of serous fluid were drained from the right hemithorax. Apparently, the patient was accepted at [facility] pending the insurance approval. The family stated that if the [facility] was denied, the patient would like to pursue home infusion and home health care services. She is covered 100% for IV antibiotic and TPN with [facility]. The patient's family agreeable to home health care with [facility] care. Unfortunately, the patient is now unstable at the time being given that she dropped her H and H to 6.4. PHYSICAL EXAMINATION: GENERAL: When I examined her today, she was pale, cachectic, but not jaundiced or cyanosed, no thyromegaly. No jugular venous distention. Mild bilateral lower extremity edema. VITAL SIGNS: Her heart rate was 104, blood pressure was 94/59, temperature was 99, respiratory rate 30 and oxygen saturation was 100% on 4 liters of oxygen. HEAD, EYES, EARS, NOSE, AND THROAT: Normocephalic, atraumatic. NECK: Supple. HEART: Showed normal first and second heart sounds. No gallop, rub or murmur. CHEST: Clear to auscultation, no crepitation or rhonchi. ABDOMEN: Distended, soft with a drain in the right lower quadrant. No guarding or rigidity. No organomegaly. All hernial orifice intact. Bowel sounds normal. NEUROLOGIC: She was sleepy, but arousable. All cranial nerves intact. She moves upper extremities to much good extent than lower extremities. She is mostly bedbound. Her intake and output are incompletely recorded. LABORATORY DATA: This morning showed a white cell count of 14,000, hemoglobin 6.4, hematocrit 19, MCV 83 and platelet count of 193,000. Her chemistry showed a serum sodium 144, potassium 4.8, chloride 114, bicarbonate 20, anion gap of 10, BUN 19, creatinine 1.1. Estimated GFR was 57 mL per minute. Her glucose 137, calcium was 7.1, magnesium was 1.8. Total bilirubin, AST, ALT, alkaline phosphatase were normal. Total protein was 4. Albumin was 0.6. ASSESSMENT: 1. Altered mental status, improved. The patient is now more awake, alert, responding appropriately. 2. Acute on chronic kidney injury, resolved. Her creatinine has steadily improved. Her most recent serum creatinine is 1.1. 3. Profound hypokalemia, resolved. Her most recent serum potassium is 4.3. 4. Questionable urinary tract infection. 5. Hypomagnesemia, resolved. Her most recent serum magnesium was 2.1. 6. Bilateral pleural effusion that has worsened since last thoracentesis for which she underwent another thoracentesis yesterday and about 660 mL of fluid were removed. 7. Cecal mass and right iliopsoas abscess, status post drainage. 8. The patient has COVID-19 infection, bilateral deep vein thrombosis and pulmonary embolism in November of this year. 9. On admission, her D-dimer was high and a CT angio of the chest showed that she has bilateral pulmonary emboli for which an arrangement has been made for an IVC filter that was placed successfully. Her Eliquis was discontinued. 10. Her blood culture was positive for gram-positive cocci. Overall, her cultures are so far negative. 11. The patient is extremely malnourished and anorectic for which we started her on TPN. We added also Marinol without really much improvement. 12. The patient has blood loss anemia, did receive her second unit of packed RBCs even after she is no longer on oral anticoagulation. 13. The patient tested positive for coronavirus PCR on 09/05/2021. PLAN: My plan is obviously to monitor her H and H and transfuse her as needed. Continue meanwhile with TPN and antibiotic and on Thursday if she is accepted at [facility], we will transfer her there. Otherwise, she will be discharged home with home health with infusion and assistance by the infusion company. EMILIE/ZEE/MOH DR: Miguel TID: [id number]
[2022-03-15] MEDS ORDERED: APIXABAN 5 MG TABLET. PO SCH (21:00)
[2022-03-15] MEDS ORDERED: AMINO ACID IV SCH (22:00)
[2022-03-15] MEDS ORDERED: [UNRECOGNIZED DRUG - OTHER] IV SCH (22:00)
[2022-03-15] MEDS ORDERED: DEXTROSE 70% IV SCH (22:00)
[2022-03-15] MEDS ORDERED: TOTAL PARENTERAL NUTRITION IV SCH (22:00)
[2022-03-16] MEDS: AMPICILLIN/SULBACTAM 1.5 GM in IV NORMAL SALINE 50ML 50 ML IV SCH ×4 (00:32→17:22)
[2022-03-16 03:00] VITALS: BP 105/70
[2022-03-16 06:52] LABS: CALCIUM 7.1 mg/dL (8.5-10.1); CREATININE 1.1 mg/dL (0.6-1.0); GFR 57.3; POTASSIUM 4.9 mmol/L (3.5-5.1)
[2022-03-16 07:00] VITALS: BP 126/81
[2022-03-16 07:02] LABS: HEMATOCRIT 22.6 % (36.0-47.0); HEMOGLOBIN 7.6 g/dL (12.0-15.5); RED BLOOD COUNT 2.69 x10^6/uL (3.50-5.40); RED CELL DISTRIBUTION WIDTH 16.2 % (11.5-14.5); WHITE BLOOD COUNT 11.5 x10^3/uL (4.0-11.0)
[2022-03-16] MEDS: LACTOBACILLUS RHAMNOSUS GG 1 CAPSULE. PO SCH ×2 (09:18→21:49)
[2022-03-16 11:00] VITALS: BP 139/74
--- NOTE | 2022-03-16 11:32 | PDOC ---
PULMONARY PROGRESS NOTES DATE: 03/16/22 TIME: 11:31 Subjective Patient continues to be short of air at times no overnight events patient remains confused Vitals Vital Signs Date Time Temp Pulse Resp B/P (MAP) Pulse Ox O2 Delivery O2 Flow Rate FiO2 03/16/22 08:00 Nasal Cannula 3.0 03/16/22 07:00 97.7 95 20 126/81 (96) 95 97.7 ROS: No Nausea, No Chest Pain, No Abdominal Pain, No Increase Cough General: Alert, No acute distress Lungs: Other (Decreased breath sounds at the bases.) Cardiovascular: S1 Abdomen: Soft Neuro Exam: Alert Extremities: No Edema Skin: Warm Labs Laboratory Tests Test 03/14/22 15:18 03/15/22 03:35 03/15/22 14:50 03/16/22 06:05 Hemoglobin 7.6 g/dL (12.0-15.5) 6.4 g/dL (12.0-15.5) 7.9 g/dL (12.0-15.5) 7.6 g/dL (12.0-15.5) White Blood Count 14.0 x10^3/uL (4.0-11.0) 12.8 x10^3/uL (4.0-11.0) 11.5 x10^3/uL (4.0-11.0) Red Blood Count 2.32 x10^6/uL (3.50-5.40) 2.81 x10^6/uL (3.50-5.40) 2.69 x10^6/uL (3.50-5.40) Hematocrit 19.1 % (36.0-47.0) 23.6 % (36.0-47.0) 22.6 % (36.0-47.0) Mean Corpuscular Volume 83 fL (79-100) 84 fL (79-100) 84 fL (79-100) Mean Corpuscular Hemoglobin 28 pg (25-35) 28 pg (25-35) 28 pg (25-35) Mean Corpuscular Hemoglobin Concent 33 g/dL (31-37) 34 g/dL (31-37) 34 g/dL (31-37) Red Cell Distribution Width 16.9 % (11.5-14.5) 16.0 % (11.5-14.5) 16.2 % (11.5-14.5) Platelet Count 193 x10^3/uL (140-400) 170 x10^3/uL (140-400) 171 x10^3/uL (140-400) Neutrophils (%) (Auto) 89 % (31-73) Lymphocytes (%) (Auto) 8 % (24-48) Monocytes (%) (Auto) 2 % (0-9) Eosinophils (%) (Auto) 1 % (0-3) Basophils (%) (Auto) 0 % (0-3) Neutrophils # (Auto) 12.5 x10^3/uL (1.8-7.7) Lymphocytes # (Auto) 1.1 x10^3/uL (1.0-4.8) Monocytes # (Auto) 0.3 x10^3/uL (0.0-1.1) Eosinophils # (Auto) 0.1 x10^3/uL (0.0-0.7) Basophils # (Auto) 0.0 x10^3/uL (0.0-0.2) Sodium Level 144 mmol/L (136-145) 143 mmol/L (136-145) Potassium Level 4.8 mmol/L (3.5-5.1) 4.9 mmol/L (3.5-5.1) Chloride Level 114 mmol/L (98-107) 114 mmol/L (98-107) Carbon Dioxide Level 20 mmol/L (21-32) 21 mmol/L (21-32) Anion Gap 10 (6-14) 8 (6-14) Blood Urea Nitrogen 19 mg/dL (7-20) 21 mg/dL (7-20) Creatinine 1.1 mg/dL (0.6-1.0) 1.1 mg/dL (0.6-1.0) Estimated GFR (Cockcroft-Gault) 57.3 57.3 BUN/Creatinine Ratio 17 (6-20) Glucose Level 137 mg/dL (70-99) 117 mg/dL (70-99) Calcium Level 7.1 mg/dL (8.5-10.1) 7.1 mg/dL (8.5-10.1) Magnesium Level 1.8 mg/dL (1.8-2.4) Total Bilirubin 0.2 mg/dL (0.2-1.0) Aspartate Amino Transf (AST/SGOT) 16 U/L (15-37) Alanine Aminotransferase (ALT/SGPT) 8 U/L (14-59) Alkaline Phosphatase 60 U/L (46-116) Total Protein 4.0 g/dL (6.4-8.2) Albumin 0.6 g/dL (3.4-5.0) Albumin/Globulin Ratio 0.2 (1.0-1.7) Phosphorus Level 3.7 mg/dL (2.6-4.7) Laboratory Tests Test 03/15/22 14:50 03/16/22 06:05 White Blood Count 12.8 x10^3/uL (4.0-11.0) 11.5 x10^3/uL (4.0-11.0) Red Blood Count 2.81 x10^6/uL (3.50-5.40) 2.69 x10^6/uL (3.50-5.40) Hemoglobin 7.9 g/dL (12.0-15.5) 7.6 g/dL (12.0-15.5) Hematocrit 23.6 % (36.0-47.0) 22.6 % (36.0-47.0) Mean Corpuscular Volume 84 fL (79-100) 84 fL (79-100) Mean Corpuscular Hemoglobin 28 pg (25-35) 28 pg (25-35) Mean Corpuscular Hemoglobin Concent 34 g/dL (31-37) 34 g/dL (31-37) Red Cell Distribution Width 16.0 % (11.5-14.5) 16.2 % (11.5-14.5) Platelet Count 170 x10^3/uL (140-400) 171 x10^3/uL (140-400) Sodium Level 143 mmol/L (136-145) Potassium Level 4.9 mmol/L (3.5-5.1) Chloride Level 114 mmol/L (98-107) Carbon Dioxide Level 21 mmol/L (21-32) Anion Gap 8 (6-14) Blood Urea Nitrogen 21 mg/dL (7-20) Creatinine 1.1 mg/dL (0.6-1.0) Estimated GFR (Cockcroft-Gault) 57.3 Glucose Level 117 mg/dL (70-99) Calcium Level 7.1 mg/dL (8.5-10.1) Phosphorus Level 3.7 mg/dL (2.6-4.7) Medications Active Scripts Medications Dose Route/Sig Max Daily Dose Days Date Category Isosorbide Mononitrate Er (Isosorbide Mononitrate) 30 Mg Tab.er.24h 1 Tab PO DAILY 12/24/21 Reported Protonix (Pantoprazole Sodium) 40 Mg Tablet.dr 40 Mg PO DAILYAC 12/24/21 Reported Carafate (Sucralfate) 1 Gm Tablet 1 Tab PO QIDACHS 30 12/24/21 Reported Ferrous Sulfate 325 Mg Tablet 1 Tab PO DAILY 60 12/24/21 Reported Coenzyme Q10 (Ubidecarenone) 200 Mg Capsule 200 Mg PO DAILY 04/13/14 Reported Nifedipine Er (Nifedipine) 60 Mg Tablet.er 60 Mg PO DAILY 04/13/14 Reported Carvedilol 25 Mg Tablet 25 Mg PO BID AC 04/13/14 Reported Comments Chest x-ray reviewed 03/09/2022. Mild increase in right pleural effusion. Impression . 1. Acute pulmonary embolism. / DVT status post IVC filter placement patient not a good candidate for long-term anticoagulation 2. This is a patient who was diagnosed with pulmonary embolism and deep venous thrombosis in late November patient was treated taken off of anticoagulation had a recurrent DVT 3. History of lower extremity deep venous thrombosis. Repeat venous Dopplers with bilateral lower extremity DVT. 4. 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 No biopsies performed to date 5. History of bacteremia secondary to iliopsoas abscess in the setting of bowel perforation due to cecal mass. She underwent OSKAR drainage for 4 weeks and was hospitalized at . 6. No significant tobaccoism. 7. Bilateral pleural effusion status postthoracentesis pleural fluid analysis compatible with transudative process 8. Severe protein calorie malnutrition. 9. Positive blood culture. 10. COVID-19 positive. 11. Worsening anemia. 12. Metabolic encephalopathy, dementia 13. Acute on chronic kidney injury Plan . Updated 03/16 Family not realistic about prognosis Discussed with Dr. Arana Continue current support Family trying to decide on best option Continue current support Antibiotics per ID Work-up cecal mass as an outpatient Patient is to follow-up at once discharge Status post IVC filter placement, patient was not aware of this, I think she has underlying dementia Follow-up on pleural fluid analysis TYSON BARRAGAN MD March 16, 2022 11:32
[2022-03-16] MEDS: DRONABINOL 2.5 MG CAPSULE. PO SCH ×2 (11:41→17:21)
--- NOTE | 2022-03-16 11:46 | PN ---
DATE: 03/16/2022 SUBJECTIVE: The patient is resting, slightly propped up in bed, in no apparent respiratory distress. She is sleepy, but arousable. On questioning her, denied any complaint. Nursing staff did not voice any concern and stated that she had an eventful night. She did receive 1 unit of packed RBCs and her H and H has risen to 7.9 and this morning, it drifted down to slightly low at 7.6 and 22.6. PHYSICAL EXAMINATION: GENERAL: When I examined her, she was pale, somewhat cachectic, but no jaundice, cyanosis or thyromegaly. No jugular venous distention. No lower limb edema. VITAL SIGNS: Her heart rate was 95, blood pressure is 126/81, her temperature was 97.7, respiratory rate 20, and oxygen saturation was 95% on 3 liters of oxygen. Rest of clinical exam is stable, has not really changed. Her intake was 1900, output 250. LABORATORY DATA: This morning showed a white cell count of 11.5, her hemoglobin was 7.6, hematocrit 22.6, MCV 84 and platelet count of 171,000. Her chemistry showed a serum sodium 143, potassium 4.9, chloride 114, bicarbonate 21, anion gap of 8, BUN 21, creatinine 1.1. Estimated GFR was 57 mL per minute. Her glucose 117, calcium was 7.1, phosphorus was 3.7, and magnesium was 1.8. ASSESSMENT: 1. Altered mental status, improved. The patient is now more awake, alert, responding appropriately. 2. Acute on chronic kidney injury, resolved. Her creatinine has steadily improved. Her most recent serum creatinine is down to 1.1. 3. Profound hypokalemia, resolved. Her most recent serum potassium is up to 4.9. 4. Questionable urinary tract infection. 5. Hypomagnesemia, resolved. Her most recent serum magnesium was 1.9. 6. Bilateral pleural effusion, it has worsened since last thoracentesis for which she underwent another thoracentesis and about 660 mL of fluid were removed from the right hemithorax. 7. Cecal mass or right iliopsoas abscess, status post drainage. 8. The patient has COVID-19 infection with bilateral deep vein thrombosis and pulmonary emboli in November of this year. 9. On admission, her D-dimer was high and the CT scan of the chest showed that she has bilateral pulmonary emboli, for which she had an inferior vena cava filter placed successfully. Her Eliquis was discontinued. 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 10. The patient has extremely malnourished and anorectic for which she was started on TPN. We added also Marinol without really much improvement. 11. The patient has blood loss anemia and she continued to bleed even after we discontinued her Eliquis and so far, she has received at least 3 units of packed RBCs. 12. The patient has tested positive for coronavirus by PCR on 03/05/2022. PLAN: My plan is obvious to continue to monitor her H and H and transfuse her as needed. Meanwhile, continue with TPN and antibiotic. She will be transferred to [facility] if she is accepted there tomorrow. Otherwise, she will be discharged home with home health. CHARMAINE DR: Miguel TID: [id number]
[2022-03-16] MEDS: TPN PER PHARMACY MC PRN (11:56)
--- NOTE | 2022-03-16 12:27 | NUR ---
Pharmacy TPN Dosing Note S: RIED RUIZ is a 86 year old F Currently receiving Central Continuous TPN started 03/08/22 B:Pertinent PMH: PERITONEAL ABSCESS, SEPSIS Height: 5 feet, 1 inches Weight: 55.5 kg Current diet: REGULAR LABS: Sodium: 143 Potassium: 4.9 Chloride: 114 Calcium: 7.1 Corrected Calcium: 9.82 Magnesium: 1.8 CO2: 21 SCr: 1.1 Glucose: 117 Albumin: 0.6 AST: 16 ALT: 8 TPN FORMULA: TPN TYPE: Central Continuous AMINO ACIDS: 65 gm DEXTROSE: 210 gm LIPIDS: 30 gm SODIUM CHLORIDE: 10 mEq SODIUM ACETATE: 30 mEq SODIUM PHOSPHATE: 15 mmol POTASSIUM CHLORIDE: - mEq POTASSIUM ACETATE: 20 mEq POTASSIUM PHOSPHATE: 13.6 mmol MAGNESIUM: 5 mEq CALCIUM: mEq INSULIN: units MULTIPLE VITAMIN: 10 ml TRACE ELEMENTS: 1 ml(s) TPN PLAN: Will slightly decrease sodium, chloride, potassium, phos to stay within normal range. R: Continue TPN as ordered Will monitor electrolytes, glucose, and tolerance to TPN. PRO [facility], [facility], 03/16/22 [id number]
[2022-03-16 15:00] VITALS: BP 114/71
[2022-03-16 19:00] VITALS: BP 124/76
[2022-03-16] MEDS ORDERED: DEXTROSE 70% IV SCH (22:00)
[2022-03-16] MEDS ORDERED: [UNRECOGNIZED DRUG - OTHER] IV SCH (22:00)
[2022-03-16] MEDS ORDERED: AMINO ACID IV SCH (22:00)
[2022-03-16] MEDS ORDERED: TOTAL PARENTERAL NUTRITION IV SCH (22:00)
[2022-03-16 23:00] VITALS: BP 118/73
[2022-03-17] VITALS (7 sets, daily range): BP systolic 112–120; BP diastolic 54–69
[2022-03-17] MEDS: AMPICILLIN/SULBACTAM 1.5 GM in IV NORMAL SALINE 50ML 50 ML IV SCH ×5 (00:25→23:43)
[2022-03-17 07:04] LABS: CALCIUM 6.9 mg/dL (8.5-10.1); CREATININE 0.9 mg/dL (0.6-1.0); GFR 72.2; MAGNESIUM 1.7 mg/dL (1.8-2.4); PHOSPHORUS 4.2 mg/dL (2.6-4.7); POTASSIUM 4.8 mmol/L (3.5-5.1)
[2022-03-17] MEDS: LACTOBACILLUS RHAMNOSUS GG 1 CAPSULE. PO SCH ×2 (09:16→22:32)
--- NOTE | 2022-03-17 09:40 | PDOC ---
PULMONARY PROGRESS NOTES DATE: 03/17/22 TIME: 09:39 Subjective No signs of respiratory distress no overnight events patient remains confused Vitals Vital Signs Date Time Temp Pulse Resp B/P (MAP) Pulse Ox O2 Delivery O2 Flow Rate FiO2 03/17/22 07:00 98.0 94 20 118/63 (81) 100 Room Air 98.0 03/16/22 21:45 3.0 ROS: No Nausea, No Chest Pain, No Abdominal Pain, No Increase Cough General: Alert, No acute distress Lungs: Other (Decreased breath sounds at the bases.) Cardiovascular: S1 Abdomen: Soft Neuro Exam: Alert Extremities: No Edema Skin: Warm Labs Laboratory Tests Test 03/15/22 14:50 03/16/22 06:05 03/16/22 16:30 03/17/22 06:35 White Blood Count 12.8 x10^3/uL (4.0-11.0) 11.5 x10^3/uL (4.0-11.0) Red Blood Count 2.81 x10^6/uL (3.50-5.40) 2.69 x10^6/uL (3.50-5.40) Hemoglobin 7.9 g/dL (12.0-15.5) 7.6 g/dL (12.0-15.5) 8.0 g/dL (12.0-15.5) 7.4 g/dL (12.0-15.5) Hematocrit 23.6 % (36.0-47.0) 22.6 % (36.0-47.0) Mean Corpuscular Volume 84 fL (79-100) 84 fL (79-100) Mean Corpuscular Hemoglobin 28 pg (25-35) 28 pg (25-35) Mean Corpuscular Hemoglobin Concent 34 g/dL (31-37) 34 g/dL (31-37) Red Cell Distribution Width 16.0 % (11.5-14.5) 16.2 % (11.5-14.5) Platelet Count 170 x10^3/uL (140-400) 171 x10^3/uL (140-400) Sodium Level 143 mmol/L (136-145) 144 mmol/L (136-145) Potassium Level 4.9 mmol/L (3.5-5.1) 4.8 mmol/L (3.5-5.1) Chloride Level 114 mmol/L (98-107) 114 mmol/L (98-107) Carbon Dioxide Level 21 mmol/L (21-32) 22 mmol/L (21-32) Anion Gap 8 (6-14) 8 (6-14) Blood Urea Nitrogen 21 mg/dL (7-20) 22 mg/dL (7-20) Creatinine 1.1 mg/dL (0.6-1.0) 0.9 mg/dL (0.6-1.0) Estimated GFR (Cockcroft-Gault) 57.3 72.2 Glucose Level 117 mg/dL (70-99) 114 mg/dL (70-99) Calcium Level 7.1 mg/dL (8.5-10.1) 6.9 mg/dL (8.5-10.1) Phosphorus Level 3.7 mg/dL (2.6-4.7) 4.2 mg/dL (2.6-4.7) Magnesium Level 1.7 mg/dL (1.8-2.4) Laboratory Tests Test 03/16/22 16:30 03/17/22 06:35 Hemoglobin 8.0 g/dL (12.0-15.5) 7.4 g/dL (12.0-15.5) Sodium Level 144 mmol/L (136-145) Potassium Level 4.8 mmol/L (3.5-5.1) Chloride Level 114 mmol/L (98-107) Carbon Dioxide Level 22 mmol/L (21-32) Anion Gap 8 (6-14) Blood Urea Nitrogen 22 mg/dL (7-20) Creatinine 0.9 mg/dL (0.6-1.0) Estimated GFR (Cockcroft-Gault) 72.2 Glucose Level 114 mg/dL (70-99) Calcium Level 6.9 mg/dL (8.5-10.1) Phosphorus Level 4.2 mg/dL (2.6-4.7) Magnesium Level 1.7 mg/dL (1.8-2.4) Medications Active Scripts Medications Dose Route/Sig Max Daily Dose Days Date Category Isosorbide Mononitrate Er (Isosorbide Mononitrate) 30 Mg Tab.er.24h 1 Tab PO DAILY 12/24/21 Reported Protonix (Pantoprazole Sodium) 40 Mg Tablet.dr 40 Mg PO DAILYAC 12/24/21 Reported Carafate (Sucralfate) 1 Gm Tablet 1 Tab PO QIDACHS 30 12/24/21 Reported Ferrous Sulfate 325 Mg Tablet 1 Tab PO DAILY 60 12/24/21 Reported Coenzyme Q10 (Ubidecarenone) 200 Mg Capsule 200 Mg PO DAILY 04/13/14 Reported Nifedipine Er (Nifedipine) 60 Mg Tablet.er 60 Mg PO DAILY 04/13/14 Reported Carvedilol 25 Mg Tablet 25 Mg PO BID AC 04/13/14 Reported Comments Chest x-ray reviewed 03/09/2022. Mild increase in right pleural effusion. Impression . 1. Acute pulmonary embolism. / DVT status post IVC filter placement patient not a good candidate for long-term anticoagulation 2. This is a patient who was diagnosed with pulmonary embolism and deep venous thrombosis in late November patient was treated taken off of anticoagulation had a recurrent DVT 3. History of lower extremity deep venous thrombosis. Repeat venous Dopplers with bilateral lower extremity DVT. 4. 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 No biopsies performed to date 5. History of bacteremia secondary to iliopsoas abscess in the setting of bowel perforation due to cecal mass. She underwent OSKAR drainage for 4 weeks and was hospitalized at . 6. No significant tobaccoism. 7. Bilateral pleural effusion status postthoracentesis pleural fluid analysis compatible with transudative process 8. Severe protein calorie malnutrition. 9. Positive blood culture. 10. COVID-19 positive. 11. Worsening anemia. 12. Metabolic encephalopathy, dementia 13. Acute on chronic kidney injury Plan . Updated 03/17 Possible discharge in a.m. Discussed with RN 03/16 Family not realistic about prognosis Discussed with Dr. Arana Continue current support Family trying to decide on best option Continue current support Antibiotics per ID Work-up cecal mass as an outpatient Patient is to follow-up at once discharge Status post IVC filter placement, patient was not aware of this, I think she has underlying dementia Follow-up on pleural fluid analysis TYSON BARRAGAN MD March 17, 2022 09:40
--- NOTE | 2022-03-17 10:07 | SNU/HH DC ---
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 Bilateral DVT Bilateral pulmonary emboli s/p I V C Filter placement Condition on Discharge: Stable CODE STATUS: Code Status: Full HOME HEALTH: Face to Face: I certify this patient is under my care and that I, or a nurse practitioner or physician's library services assistant working with me, had a face to face encounter that meets the physician face to face encounter requirements with this patient on 03/17/2022 Medical Complications: Other Nursing Home For: Admin/Educate Injections, Medication Management RN For Eval/Treatment: Yes Physical Therapy For: Evalulation/Treatment Occupational Therapy For: Evaluation/Treatment Pt Meets Homebound Status: Limited distance walking POST DISCHARGE ORDERS: Activity Instructions for Disc: Activity as tolerated DIET AFTER DISCHARGE: CERTIFICATION STATEMENT: Certification Statement: Certification Statement: Based on the above finding, I certify that this patient is confined to the home and needs intermittent long term care, physical therapy and/or speech therapy, or continues to need occupational therapy.~ This patient is under my care, and I have initiated the establishment of the plan of care.~ This patient will be followed by myself or a community physician who will periodically review the plan of care. Home Meds Reported Medications Isosorbide Mononitrate (ISOSORBIDE MONONITRATE ER) 30 Mg Tab.er.24h, 1 TAB PO DAILY for prevent chest pain, #30 TAB 5 Refills 12/24/21 Pantoprazole Sodium (PROTONIX ) 40 Mg Tablet.dr, 40 MG PO DAILYAC for GERD, TAB 12/24/21 Sucralfate (CARAFATE) 1 Gm Tablet, 1 TAB PO QIDACHS for PUD for 30 Days, #120 TAB 0 Refills 12/24/21 Ferrous Sulfate (FERROUS SULFATE) 325 Mg Tablet, 1 TAB PO DAILY for anemia for 60 Days, #60 TAB 3 Refills 12/24/21 Ubidecarenone (COENZYME Q10) 200 Mg Capsule, 200 MG PO DAILY 04/13/14 Nifedipine (NIFEDIPINE ER) 60 Mg Tablet.er, 60 MG PO DAILY, TAB.SR 04/13/14 Carvedilol (CARVEDILOL) 25 Mg Tablet, 25 MG PO BID AC for Blood Pressure, TAB 04/13/14 ALEXANDRO STRICKLAND MD March 17, 2022 10:07
--- NOTE | 2022-03-17 12:19 | NUR ---
SS following up with discharge planning. SS reviewed pt chart and discussed with pt RN. Pt declined for LTACH by insurance. SS discussed with pt's granddaughter and pt's granddaughter agreeable to home plan. Pt is currently requiring oxygen at three liters nasal canula. Pt has no home oxygen. Pt unable to complete six minute walk. Oxygen being tested at room air. Pt now on PO Augmentin. PICC in place. Scripts received for hospital bed and TPN. Script for TPN and updated clinical sent to [facility], ; fax [phone]. Script received for hospital bed. Script and clinical phoned and faxed to [facility], ; fax [phone], and [facility], ; fax [phone]. Pt's granddaughter requesting hospital bed set up in the home prior to discharge. Pt accepted on services with [facility], ; fax [phone]. Discharge orders received and sent to [facility]. Pt's granddaughter arranging private duty services with [facility]. Currently awaiting response from [facility] in regards to hospital bed. [facility] arranging teach for TPN with pt's granddaughter. Currently awaiting oxygen testing and results. SS will continue to follow for discharge planning.
[2022-03-17] MEDS: DRONABINOL 2.5 MG CAPSULE. PO SCH ×2 (12:58→17:27)
--- NOTE | 2022-03-17 13:18 | NUR ---
pt is unable to do 6min walk for home oxygen requirements. so this nurse went into room and took pt off oxygen and left her on room air for 15 minutes. on 3L NC of oxygen she had an oxygen sat of 97%, while on room air the pt only dropped down to 93% and was just fine without the supplemental oxygen. Have left the pt on room air and she is still on 93% oxygen sat. Juan Gonzalez RN
[2022-03-17] MEDS: TPN PER PHARMACY MC PRN (13:43)
--- NOTE | 2022-03-17 13:43 | NUR ---
Pharmacy TPN Dosing Note S: SARAREID FARNSWORTH is a 86 year old F Currently receiving Central Continuous TPN started 03/08/22 B:Pertinent PMH: PERITONEAL ABSCESS, SEPSIS Height: 5 feet, 1 inches Weight: 55.5 kg Current diet: REGULAR LABS: Sodium: 144 Potassium: 4.8 Chloride: 114 Calcium: 6.9 Corrected Calcium: 9.62 Magnesium: 1.7 CO2: 22 SCr: 0.9 Glucose: 114 Albumin: 0.6 AST: 16 ALT: 8 TPN FORMULA: TPN TYPE: Central Continuous AMINO ACIDS: 65 gm DEXTROSE: 210 gm LIPIDS: 30 gm SODIUM CHLORIDE: - mEq SODIUM ACETATE: 30 mEq SODIUM PHOSPHATE: 15 mmol POTASSIUM CHLORIDE: - mEq POTASSIUM ACETATE: 20 mEq POTASSIUM PHOSPHATE: 5 mmol MAGNESIUM: 8 mEq CALCIUM: mEq INSULIN: units MULTIPLE VITAMIN: 10 ml TRACE ELEMENTS: 1 ml(s) TPN PLAN: Unable to discharge today. K on higher end and phos trending up, will reduce KPhos to 5 mmol Mag low, increase R: Continue TPN as written above. Will monitor electrolytes, glucose, and tolerance to TPN. MARIAH PEREZ [facility], 03/17/22 0922
[2022-03-17] MEDS: DAPTOmycin (GENERIC) IVPB 330 MG in IV NORMAL SALINE 50ML 50 ML IV SCH (15:37)
[2022-03-17] MEDS ORDERED: AMINO ACID IV SCH (22:00)
[2022-03-17] MEDS ORDERED: TOTAL PARENTERAL NUTRITION IV SCH (22:00)
[2022-03-17] MEDS ORDERED: [UNRECOGNIZED DRUG - OTHER] IV SCH (22:00)
[2022-03-17] MEDS ORDERED: DEXTROSE 70% IV SCH (22:00)
[2022-03-18] MEDS: AMPICILLIN/SULBACTAM 1.5 GM in IV NORMAL SALINE 50ML 50 ML IV SCH ×4 (05:48→23:46)
[2022-03-18 07:00] VITALS: BP 119/68
--- NOTE | 2022-03-18 09:07 | PDOC ---
PULMONARY PROGRESS NOTES DATE: 03/18/22 TIME: 09:07 Subjective No signs of respiratory distress no overnight events patient remains confused Vitals Vital Signs Date Time Temp Pulse Resp B/P (MAP) Pulse Ox O2 Delivery O2 Flow Rate FiO2 03/18/22 07:00 98.5 93 18 119/68 (85) 98 Nasal Cannula 3.0 98.5 ROS: No Nausea, No Chest Pain, No Abdominal Pain, No Increase Cough General: Alert, No acute distress Lungs: Other (Decreased breath sounds at the bases.) Cardiovascular: S1 Abdomen: Soft Neuro Exam: Alert Extremities: No Edema Skin: Warm Labs Laboratory Tests Test 03/16/22 16:30 03/17/22 06:35 Hemoglobin 8.0 g/dL (12.0-15.5) 7.4 g/dL (12.0-15.5) Sodium Level 144 mmol/L (136-145) Potassium Level 4.8 mmol/L (3.5-5.1) Chloride Level 114 mmol/L (98-107) Carbon Dioxide Level 22 mmol/L (21-32) Anion Gap 8 (6-14) Blood Urea Nitrogen 22 mg/dL (7-20) Creatinine 0.9 mg/dL (0.6-1.0) Estimated GFR (Cockcroft-Gault) 72.2 Glucose Level 114 mg/dL (70-99) Calcium Level 6.9 mg/dL (8.5-10.1) Phosphorus Level 4.2 mg/dL (2.6-4.7) Magnesium Level 1.7 mg/dL (1.8-2.4) Medications Active Scripts Medications Dose Route/Sig Max Daily Dose Days Date Category Isosorbide Mononitrate Er (Isosorbide Mononitrate) 30 Mg Tab.er.24h 1 Tab PO DAILY 12/24/21 Reported Protonix (Pantoprazole Sodium) 40 Mg Tablet.dr 40 Mg PO DAILYAC 12/24/21 Reported Carafate (Sucralfate) 1 Gm Tablet 1 Tab PO QIDACHS 30 12/24/21 Reported Ferrous Sulfate 325 Mg Tablet 1 Tab PO DAILY 60 12/24/21 Reported Coenzyme Q10 (Ubidecarenone) 200 Mg Capsule 200 Mg PO DAILY 04/13/14 Reported Nifedipine Er (Nifedipine) 60 Mg Tablet.er 60 Mg PO DAILY 04/13/14 Reported Carvedilol 25 Mg Tablet 25 Mg PO BID AC 04/13/14 Reported Comments Chest x-ray reviewed 03/09/2022. Mild increase in right pleural effusion. Impression . 1. Acute pulmonary embolism. / DVT status post IVC filter placement patient not a good candidate for long-term anticoagulation 2. This is a patient who was diagnosed with pulmonary embolism and deep venous thrombosis in late November patient was treated taken off of anticoagulation had a recurrent DVT 3. History of lower extremity deep venous thrombosis. Repeat venous Dopplers with bilateral lower extremity DVT. 4. 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 No biopsies performed to date 5. History of bacteremia secondary to iliopsoas abscess in the setting of bowel perforation due to cecal mass. She underwent OSKAR drainage for 4 weeks and was hospitalized at . 6. No significant tobaccoism. 7. Bilateral pleural effusion status postthoracentesis pleural fluid analysis compatible with transudative process 8. Severe protein calorie malnutrition. 9. Positive blood culture. 10. COVID-19 positive. 11. Worsening anemia. 12. Metabolic encephalopathy, dementia 13. Acute on chronic kidney injury Plan . Patient to discharge today Discussed with case management TYSON BARRAGAN MD March 18, 2022 09:07
[2022-03-18] MEDS: LACTOBACILLUS RHAMNOSUS GG 1 CAPSULE. PO SCH ×2 (09:31→21:44)
[2022-03-18 10:38] LABS: CALCIUM 7.2 mg/dL (8.5-10.1); CREATININE 0.9 mg/dL (0.6-1.0); GFR 72.2; MAGNESIUM 1.7 mg/dL (1.8-2.4); PHOSPHORUS 3.7 mg/dL (2.6-4.7); POTASSIUM 3.9 mmol/L (3.5-5.1)
[2022-03-18 11:00] VITALS: BP 127/71
[2022-03-18] MEDS: DRONABINOL 2.5 MG CAPSULE. PO SCH ×2 (11:40→16:46)
--- NOTE | 2022-03-18 12:42 | NUR ---
SS following up with discharge planning. SS reviewed pt chart and discussed with pt RN. Pt is currently on room air. Pt now on PO Augmentin. PICC in place. IV TPN arranged through [facility], ; fax [phone]. Hospital bed to be delivered to pt's home tomorrow morning by [facility], ; fax [phone]. Pt's granddaughter requesting hospital bed set up in the home prior to discharge. Pt was accepted on services with [facility], ; fax [phone], but [facility] now stating that they do not have RN's available in [place]. Pt's granddaughter agreeable to [facility]. Referral and orders sent to [facility], ; fax [phone], and pt accepted on services. Pt's granddaughter requesting transportation to home once hospital bed has been delivered. Pt will discharge to home tomorrow via stretcher through [facility], , between 1430 and 1500. Pt's RN notified. SS will continue to follow for discharge planning.
[2022-03-18] MEDS: TPN PER PHARMACY MC PRN (13:13)
--- NOTE | 2022-03-18 13:14 | NUR ---
Pharmacy TPN Dosing Note S: REID RUIZ is a 86 year old F Currently receiving Central Continuous TPN started 03/08/22 B:Pertinent PMH: PERITONEAL ABSCESS, SEPSIS Height: 5 feet, 1 inches Weight: 55.5 kg Current diet: REGULAR LABS: Sodium: 144 Potassium: 3.9 Chloride: 112 Calcium: 7.2 Corrected Calcium: 9.92 Magnesium: 1.7 CO2: 22 SCr: 0.9 Glucose: 115 Albumin: 0.6 AST: 16 ALT: 8 TPN FORMULA: TPN TYPE: Central Continuous AMINO ACIDS: 65 gm DEXTROSE: 210 gm LIPIDS: 30 gm SODIUM ACETATE: 30 mEq SODIUM PHOSPHATE: 15 mmol POTASSIUM ACETATE: 20 mEq POTASSIUM PHOSPHATE: 5 mmol MAGNESIUM: 12 mEq MULTIPLE VITAMIN: 10 ml TRACE ELEMENTS: 1 ml(s) TPN PLAN: Mg++ increased due to low Mg++ level.. R: Change TPN Will monitor electrolytes, glucose, and tolerance to TPN. Brian Dumont [facility], 03/18/22 0318
[2022-03-18 15:00] VITALS: BP 136/73
[2022-03-18 19:47] VITALS: BP 148/86
[2022-03-18] MEDS ORDERED: DEXTROSE 70% IV SCH (22:00)
[2022-03-18] MEDS ORDERED: [UNRECOGNIZED DRUG - OTHER] IV SCH (22:00)
[2022-03-18] MEDS ORDERED: AMINO ACID IV SCH (22:00)
[2022-03-18] MEDS ORDERED: TOTAL PARENTERAL NUTRITION IV SCH (22:00)
[2022-03-18 23:46] VITALS: BP 157/79
--- NOTE | 2022-03-19 02:43 | DS ---
DATE OF DISCHARGE: 03/18/2022 SUBJECTIVE: The patient is an 86-year-old female patient who was admitted originally with altered mental status that has resolved. She was found to have acute on chronic kidney injury and severe profound hypokalemia, hypomagnesemia, and pleural effusion. Her potassium was replenished and her kidney function has improved. She had a thoracentesis done twice and initially 1000 mL of fluid drained from the right hemithorax and subsequent thoracentesis about 660 mL were drained. The patient has bilateral pulmonary emboli and bilateral lower extremity DVT, for which she was started initially on Eliquis, then heparin and eventually Eliquis; however, she developed acute blood loss anemia that required multiple blood transfusions and therefore, she has an IVC filter placed successfully and we discontinued her Eliquis. The patient has been extremely malnourished with severe hypoalbuminemia, for which we started her on TPN. She had a PICC line placed and an attempt was made to discharge the patient to LTAC; however, her insurance declined and therefore, a decision was made to discharge her home with home health to continue on TPN, IV antibiotic as per Infectious Disease specialist. Discharge orders were sent to the [facility] for TPN for IV antibiotic. She has also an order for hospital bed as requested by her granddaughter. PHYSICAL EXAMINATION: GENERAL: When I saw her today, she looked well and was clearly in no apparent respiratory distress. She was pale, but not jaundiced or cyanosed, no lymphadenopathy, no thyromegaly, no jugular venous distention. No lower limb edema. VITAL SIGNS: Her heart rate was 93, blood pressure was 119/68, temperature was 98.5, respiratory rate was 18 and oxygen saturation was 98% on 3 liters of oxygen. HEAD, EYES, EARS, NOSE, AND THROAT: Normocephalic, atraumatic. NECK: Supple. HEART: Showed normal first and second heart sounds. No gallop, rub or murmur. CHEST: Clear to auscultation, no crepitation or rhonchi. ABDOMEN: Distended, soft, nontender, no guarding or rigidity. No organomegaly. All hernial orifice intact. Bowel sounds normal. NEUROLOGIC: She was sleepy, but arousable. All cranial nerves intact. She moves upper extremities without difficulty, is mostly bedbound. Her intake and output are incompletely recorded. LABORATORY DATA: Her lab work this morning showed a serum sodium 144, potassium 4.8, chloride 114, bicarbonate 22, anion gap of 8, BUN 22, creatinine 0.9. Estimated GFR was 72 mL per minute. Her glucose 114, calcium was 6.9, phosphorus 4.2, and magnesium was 1.7. Her hemoglobin this morning was 7.4. ASSESSMENT: The patient was discharged home to continue on TPN. Continue with dronabinol 2.5 mg twice a day, ondansetron 4 mg every 6 hours and daptomycin 330 mg IV every 48 hours., lactobacillus rhamnosus 1 capsule twice a day. She is also on p.o. Augmentin as per Infectious Disease specialist. FINAL DISCHARGE DIAGNOSES: 1. Altered mental status, resolved. The patient is now more awake, alert, responding appropriately. 2. Acute on chronic kidney injury, resolved. Her creatinine came down steadily and the most recent serum creatinine down to 1 mg/dL. 3. Profound hypokalemia, resolved. Her most recent serum potassium is 4.3 mEq per liter. 4. Hypomagnesemia, resolved. Her most recent serum magnesium is 2.2. 5. Bilateral pleural effusion, for which she underwent thoracentesis twice. 6. 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 7. The patient has COVID-19 infection with bilateral deep vein thrombosis and pulmonary emboli in November of this year. 8. On admission, her D-dimer was high and a CT angio of the chest showed she has bilateral pulmonary emboli, for which she was started initially on Lovenox given that she started bleeding. We discontinued her Eliquis and she had had an IVC filter placed successfully, 9. Her blood cultures were positive for gram-positive cocci; however, all her cultures are so far negative. 10. The patient was extremely malnourished and anorectic and we started her on TPN and we added Marinol to improve her appetite. 11. The patient has blood loss anemia and received at least 3 units of packed RBCs. She is no longer on oral anticoagulation. The patient will be discharged home with home health to continue on TPN and IV antibiotic. MARGAUX/BEATRICE DR: Miguel TID: [id number]
[2022-03-19 03:58] VITALS: BP 170/88
[2022-03-19] MEDS: AMPICILLIN/SULBACTAM 1.5 GM in IV NORMAL SALINE 50ML 50 ML IV SCH ×2 (05:50→11:33)
[2022-03-19 06:19] LABS: BASO # 0.1 x10^3/uL (0.0-0.2); BASO % 1 % (0-3); EOS # 0.1 x10^3/uL (0.0-0.7); EOS % 1 % (0-3); HEMATOCRIT 22.1 % (36.0-47.0); HEMOGLOBIN 7.4 g/dL (12.0-15.5); LYMPH # 1.6 x10^3/uL (1.0-4.8); LYMPH % 16 % (24-48); MEAN CORPUSCULAR HEMOGLOBIN 29 pg (25-35); MEAN CORPUSCULAR HGB CONC 34 g/dL (31-37); MEAN CORPUSCULAR VOLUME 86 fL (79-100); MONO # 0.4 x10^3/uL (0.0-1.1); MONO % 4 % (0-9); NEUT # 7.6 x10^3/uL (1.8-7.7); NEUT % 78 % (31-73); PLATELET COUNT 213 x10^3/uL (140-400); RED BLOOD COUNT 2.57 x10^6/uL (3.50-5.40); RED CELL DISTRIBUTION WIDTH 16.6 % (11.5-14.5); WHITE BLOOD COUNT 9.7 x10^3/uL (4.0-11.0)
[2022-03-19 06:24] LABS: CALCIUM 7.2 mg/dL (8.5-10.1); CREATININE 0.9 mg/dL (0.6-1.0); GFR 72.2; POTASSIUM 3.6 mmol/L (3.5-5.1)
[2022-03-19 07:00] VITALS: BP 123/81
--- NOTE | 2022-03-19 09:16 | NUR ---
Allergies and reactions Y INR none BUN 24 Cr 0.9 Platelets 213 Blood culture done 03-08-22 blood culture results no growth Order Verified y Consent signed y Previous PICC placement y Past Medical/Surgical history and current diagnosis reviewed y Patient Medical /Surgical History Related to PICC line placement Arrhythmias Infectious Disease consult Past central line or venous access device placement Special considerations for PICC line placement Infections PICC placement indication intermodal customer service antibiotic usage, Total Parenteral Nutrition (TPN) Tuyet LIGHT PICC Nurse Addendum: 03/19/22 at 1042 by VALENCIA SCHAFER RN Amended: Links added.
--- NOTE | 2022-03-19 10:09 | PATHOLOGY ---
Note [facility] Accession Number: [id number] TESTS RESULT FLAG UNITS REF RANGE LAB Clinician Provided Cytology Information No. of containers..01 Other (Miscellaneous) Source: RIGHT PLEURAL FLUID DIAGNOSIS: 02 RIGHT PLEURAL FLUID NEGATIVE FOR MALIGNANT CELLS. MESOTHELIAL CELLS ARE PRESENT. THIS EVALUATION INCLUDES EXAMINATION OF A CELL BLOCK. Signed out by: 02 Jay Do MD, Pathologist NPI- [id number] Performed by: Odalys Keller, Mass Spectrometry Manager ([facility]) Gross description: 01 40ML, PALE YELLOW, CLEAR /LCS 03/18/2022 1125 Local FLAG LEGEND: L-Low Normal,H-High Normal,LL-Alert Low,HH-Alert High <-Panic Low,>-Panic High,A-Abnormal,AA-Critical Abnormal Performed at: [address] [place] [address] Avtar Milan MD, 02 [facility] [address] [place] [address] Jay Do MD, Specimen Comment: A courtesy copy of this report has been sent to [phone] Specimen Comment: Report sent to Specimen Comment: A duplicate report has been generated due to demographic updates. Performed at: [address], [place], [place] [id number] MD Atvar Milan MD Phone: [phone]
--- NOTE | 2022-03-19 10:41 | NUR ---
Procedure: Following complete explanation of the PICC procedure including the indications, risks, and potential complications, informed consent was obtained. The possibility for infection was discussed along with signs, symptoms, and prevention. All the questions were answered.y Written and verbal patient education was provided.y Hand hygiene performed. y Standardized central line checklist was utilized.y The patient was placed in the supine position, the arm was prepped with chlorhexidine and patient draped with maximum sterile barrier. 2 mL 1% lidocaine was infiltrated into the skin to provide local anesthesia. A thorough assessment of right upper extremity completed. Using real-time ultrasound guidance and standardized micro puncture set, the Brachiel vein was punctured and a peel away sheath was placed using the modified Seldinger technique. A tip location device was used to ensure adequate catheter placement. The catheter was secured using a securement device and an antimicrobial patch was applied directly on the insertion site followed by a transparent dressing. All ports withdraw blood and flush without resistance. Patient tolerated the procedure without apparent complication(s). single Lumen Power PICC placement successful and uncomplicated. Placement verified by EKG tip confirmation system and/or chest x-ray. Tip located in the CAJ Complications:none Addendum: 03/19/22 at 1042 by VALENCIA SCHAFER RN Amended: Links added.
--- NOTE | 2022-03-19 10:58 | PDOC ---
PULMONARY PROGRESS NOTES DATE: 03/19/22 TIME: 10:58 Subjective No signs of respiratory distress no overnight events patient remains confused Vitals Vital Signs Date Time Temp Pulse Resp B/P (MAP) Pulse Ox O2 Delivery O2 Flow Rate FiO2 03/19/22 08:00 Room Air 03/19/22 07:00 97.7 85 24 123/81 (95) 98 3.0 97.7 ROS: No Nausea, No Chest Pain, No Abdominal Pain, No Increase Cough General: Alert, No acute distress Lungs: Other (Decreased breath sounds at the bases.) Cardiovascular: S1 Abdomen: Soft Neuro Exam: Alert Extremities: No Edema Skin: Warm Labs Laboratory Tests Test 03/18/22 10:00 03/19/22 06:02 Sodium Level 144 mmol/L (136-145) 141 mmol/L (136-145) Potassium Level 3.9 mmol/L (3.5-5.1) 3.6 mmol/L (3.5-5.1) Chloride Level 112 mmol/L (98-107) 111 mmol/L (98-107) Carbon Dioxide Level 22 mmol/L (21-32) 22 mmol/L (21-32) Anion Gap 10 (6-14) 8 (6-14) Blood Urea Nitrogen 23 mg/dL (7-20) 24 mg/dL (7-20) Creatinine 0.9 mg/dL (0.6-1.0) 0.9 mg/dL (0.6-1.0) Estimated GFR (Cockcroft-Gault) 72.2 72.2 Glucose Level 115 mg/dL (70-99) 97 mg/dL (70-99) Calcium Level 7.2 mg/dL (8.5-10.1) 7.2 mg/dL (8.5-10.1) Phosphorus Level 3.7 mg/dL (2.6-4.7) Magnesium Level 1.7 mg/dL (1.8-2.4) White Blood Count 9.7 x10^3/uL (4.0-11.0) Red Blood Count 2.57 x10^6/uL (3.50-5.40) Hemoglobin 7.4 g/dL (12.0-15.5) Hematocrit 22.1 % (36.0-47.0) Mean Corpuscular Volume 86 fL (79-100) Mean Corpuscular Hemoglobin 29 pg (25-35) Mean Corpuscular Hemoglobin Concent 34 g/dL (31-37) Red Cell Distribution Width 16.6 % (11.5-14.5) Platelet Count 213 x10^3/uL (140-400) Neutrophils (%) (Auto) 78 % (31-73) Lymphocytes (%) (Auto) 16 % (24-48) Monocytes (%) (Auto) 4 % (0-9) Eosinophils (%) (Auto) 1 % (0-3) Basophils (%) (Auto) 1 % (0-3) Neutrophils # (Auto) 7.6 x10^3/uL (1.8-7.7) Lymphocytes # (Auto) 1.6 x10^3/uL (1.0-4.8) Monocytes # (Auto) 0.4 x10^3/uL (0.0-1.1) Eosinophils # (Auto) 0.1 x10^3/uL (0.0-0.7) Basophils # (Auto) 0.1 x10^3/uL (0.0-0.2) Laboratory Tests Test 03/19/22 06:02 White Blood Count 9.7 x10^3/uL (4.0-11.0) Red Blood Count 2.57 x10^6/uL (3.50-5.40) Hemoglobin 7.4 g/dL (12.0-15.5) Hematocrit 22.1 % (36.0-47.0) Mean Corpuscular Volume 86 fL (79-100) Mean Corpuscular Hemoglobin 29 pg (25-35) Mean Corpuscular Hemoglobin Concent 34 g/dL (31-37) Red Cell Distribution Width 16.6 % (11.5-14.5) Platelet Count 213 x10^3/uL (140-400) Neutrophils (%) (Auto) 78 % (31-73) Lymphocytes (%) (Auto) 16 % (24-48) Monocytes (%) (Auto) 4 % (0-9) Eosinophils (%) (Auto) 1 % (0-3) Basophils (%) (Auto) 1 % (0-3) Neutrophils # (Auto) 7.6 x10^3/uL (1.8-7.7) Lymphocytes # (Auto) 1.6 x10^3/uL (1.0-4.8) Monocytes # (Auto) 0.4 x10^3/uL (0.0-1.1) Eosinophils # (Auto) 0.1 x10^3/uL (0.0-0.7) Basophils # (Auto) 0.1 x10^3/uL (0.0-0.2) Sodium Level 141 mmol/L (136-145) Potassium Level 3.6 mmol/L (3.5-5.1) Chloride Level 111 mmol/L (98-107) Carbon Dioxide Level 22 mmol/L (21-32) Anion Gap 8 (6-14) Blood Urea Nitrogen 24 mg/dL (7-20) Creatinine 0.9 mg/dL (0.6-1.0) Estimated GFR (Cockcroft-Gault) 72.2 Glucose Level 97 mg/dL (70-99) Calcium Level 7.2 mg/dL (8.5-10.1) Medications Active Scripts Medications Dose Route/Sig Max Daily Dose Days Date Category Isosorbide Mononitrate Er (Isosorbide Mononitrate) 30 Mg Tab.er.24h 1 Tab PO DAILY 12/24/21 Reported Protonix (Pantoprazole Sodium) 40 Mg Tablet.dr 40 Mg PO DAILYAC 12/24/21 Reported Carafate (Sucralfate) 1 Gm Tablet 1 Tab PO QIDACHS 30 12/24/21 Reported Ferrous Sulfate 325 Mg Tablet 1 Tab PO DAILY 60 12/24/21 Reported Coenzyme Q10 (Ubidecarenone) 200 Mg Capsule 200 Mg PO DAILY 04/13/14 Reported Nifedipine Er (Nifedipine) 60 Mg Tablet.er 60 Mg PO DAILY 04/13/14 Reported Carvedilol 25 Mg Tablet 25 Mg PO BID AC 04/13/14 Reported Comments Chest x-ray reviewed 03/09/2022. Mild increase in right pleural effusion. Impression . 1. Acute pulmonary embolism. / DVT status post IVC filter placement patient not a good candidate for long-term anticoagulation 2. This is a patient who was diagnosed with pulmonary embolism and deep venous thrombosis in late November patient was treated taken off of anticoagulation had a recurrent DVT 3. History of lower extremity deep venous thrombosis. Repeat venous Dopplers with bilateral lower extremity DVT. 4. 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 No biopsies performed to date 5. History of bacteremia secondary to iliopsoas abscess in the setting of bowel perforation due to cecal mass. She underwent OSKAR drainage for 4 weeks and was hospitalized at . 6. No significant tobaccoism. 7. Bilateral pleural effusion status postthoracentesis pleural fluid analysis compatible with transudative process 8. Severe protein calorie malnutrition. 9. Positive blood culture. 10. COVID-19 positive. 11. Worsening anemia. 12. Metabolic encephalopathy, dementia 13. Acute on chronic kidney injury Plan . Discussed with RN, patient to discharge today TYSON BARRAGAN MD March 19, 2022 10:58
[2022-03-19 11:00] VITALS: BP 117/68
[2022-03-19] MEDS: LACTOBACILLUS RHAMNOSUS GG 1 CAPSULE. PO SCH (11:01)
[2022-03-19] MEDS: DRONABINOL 2.5 MG CAPSULE. PO SCH (11:01)
--- NOTE | 2022-03-19 11:41 | NUR ---
SS following up with discharge planning. SS reviewed pt chart and discussed with pt RN. Pt is currently on room air. Pt now on PO Augmentin. PICC in place. IV TPN arranged through [facility], ; fax [phone]. Hospital bed to be delivered today by [facility], ; fax [phone]. [facility] ; fax [phone]. Pt's granddaughter requesting transportation to home once hospital bed has been delivered. Pt will discharge to home today via stretcher through [facility], , between 1430 and 1500. Pt's RN notified. SS will continue to follow for discharge planning. Addendum: 03/19/22 at 1325 by IRMA MCKEON SS SS received phone contact that [facility] does have nursing staff to accommodate pt. Pt's granddaughter notified. [facility] notified.
--- NOTE | 2022-03-19 14:15 | NUR ---
Discharge Note: REID RUIZ [address] [place] [address] Discharge instructions and discharge home medications reviewed with Patient and a copy given. All questions have been answered and understanding verbalized. The following instructions and handouts were given: f/u with PCP as needed Discontinued lines and drains: R IJ TL Patient discharged to Home w/services with Self via [facility] Stretcher Pt discharged with ARFAEL SL PICC, 16F Figueroa catheter, and abdominal drain. Outside DNR, information about Power PICC and IVC filter packet given to patient. Notified Kirstin of patient discharge.
--- NOTE | 2022-03-19 15:59 | RAD ---
XR CHEST 1V History: PICC line verification Comparison: 03/13/2022, 04/19/2020 Technique: Portable AP chest radiograph. Findings/ Impression: Tubes and lines: -Right upper extremity PICC with distal tip projecting in the mid SVC. -Dual chamber cardiac pacemaker with lead tips projecting in the region of the right ventricle and SV C, similar to comparisons. Lungs and pleura: Persistent right greater than left lower lobe and right upper lobe consolidations. Bilateral effusions. No pneumothorax. Cardiac silhouette and pulmonary vasculature: Stable with postsurgical changes of the mediastinum. Osseous structures and other: Unchanged. Electronically signed by: Lonny Akbar MD (03/19/2022 10:48 AM) [id number]
== END 2022-03-19 14:15 | disposition home health service (06) | DRG 177 ==
LOC: 1 WEST ICU 22:48 → 5 NORTH 03-09 20:11
PROVIDERS: ADMIT Internal Medicine; ATTEND Internal Medicine
PROC: 0W993ZX Drainage of Right Pleural Cavity, Percutaneous Approach, Diagnostic (ICD-10-PCS; principal; 2022-03-06)
PROC: 02HV33Z Insertion of Infusion Device into Superior Vena Cava, Percutaneous Approach (ICD-10-PCS; 2022-03-07)
PROC: 06H03DZ Insertion of Intraluminal Device into Inferior Vena Cava, Percutaneous Approach (ICD-10-PCS; 2022-03-07)
DX: U07.1 COVID-19 (principal); I26.99 Other pulmonary embolism without acute cor pulmonale; E43 Unspecified severe protein-calorie malnutrition; K63.1 Perforation of intestine (nontraumatic); K68.12 Psoas muscle abscess; G93.41 Metabolic encephalopathy; N17.9 Acute kidney failure, unspecified; J91.8 Pleural effusion in other conditions classified elsewhere; D62 Acute posthemorrhagic anemia; F05 Delirium due to known physiological condition; I82.403 Acute embolism and thrombosis of unspecified deep veins of lower extremity, bilateral; J98.11 Atelectasis; M60.08 Infective myositis, other site; E87.6 Hypokalemia; D64.9 Anemia, unspecified; D25.9 Leiomyoma of uterus, unspecified; E83.42 Hypomagnesemia; E88.09 Other disorders of plasma-protein metabolism, not elsewhere classified; I11.0 Hypertensive heart disease with heart failure; I25.10 Atherosclerotic heart disease of native coronary artery without angina pectoris; I50.9 Heart failure, unspecified; R09.02 Hypoxemia; Z79.01 Long term (current) use of anticoagulants; Z82.49 Family history of ischemic heart disease and other diseases of the circulatory system; Z86.711 Personal history of pulmonary embolism; Z86.718 Personal history of other venous thrombosis and embolism; Z95.0 Presence of cardiac pacemaker; Z95.1 Presence of aortocoronary bypass graft; Z95.828 Presence of other vascular implants and grafts; Z96.651 Presence of right artificial knee joint; K21.9 Gastro-esophageal reflux disease without esophagitis; Z74.01 Bed confinement status
CPT/HCPCS: 32555; 36415; 36430; 36556; 36569; 37191; 71045; 76937; 80048; 80053; 82550; 82962; 83615; 83735; 84100; 84157; 84478; 85014; 85018; 85025; 85027; 85520; 86850; 86900; 86901; 86920; 87040; 87075; 88112; 88305; 93970; C1892; J0295; J0692; J0744; J0878; J1644; J1940; J3475; J3480; J3490; J7042; P9016; Q9966; G0378; Q0167

== ENCOUNTER 2022-03-22 02:30 | Inpatient (IN) | payer MEDICARE ==
[~2022-03-22] VITALS: Ht 157.5 cm; Wt 73.3 kg
[2022-03-22 02:00] VITALS: BP 102/56
[2022-03-22 07:00] VITALS: BP 109/62
--- NOTE | 2022-03-22 07:29 | NUR ---
Around 0145 Selene arrived from [facility] via EMS w/ GI bleed and Anemia. She is A/O x 2-3 and forgetful/confused @ times. Will make some needs known. Notified Dr. Carey's answering service about consult.
[2022-03-22] MEDS: PANTOPRAZOLE IV PUSH 40 MG VIAL. IVP SCH (08:26)
--- NOTE | 2022-03-22 11:08 | PDOC1 ---
History and Physical Date of Admission Date of Admission DATE: 03/22/22 TIME: 10:52 History of Present Illness History of Present Illness Patient examined chart reviewed patient was admitted overnight through the [facility] emergency department where she presented with severe weakness, malaise and continued failure to thrive at home in the setting of 5 months of severe illness that started in October with a peritonitis and sepsis cared for at [facility] thought to be due to a perforating cecal mass. The patient and her family tell me that they have not been told definitively that the cecal mass is colon cancer though they understand that is the most likely diagnosis. Patient has a son and a daughter and 2 grandchildren at bedside today including her medical DURABLE POWER OF BUFFERER noted below in the social history. Granddaughter provides most of the history. She tells me that they have transferred their care to [facility] because it is closer to the family and they are more comfortable here. They are agreeable to discussing options with the GI doctor and surgeon here but understand that patient is quite frail and may not survive any invasive assessment. [facility] was unable to offer her any further assessment after her prolonged stays there earlier this year. Granddaughter tells me that she was deemed too unstable to proceed with even a colonoscopy. Patient tells me that her goals for care are to enjoy as much time as she can with her family and will accept treatments but is not wanting cardiopulmonary resuscitation in the event of an arrest. Patient is a DO NOT RESUSCITATE DO NOT INTUBATE status. We have consulted Dr. Shore and appreciate his assistance. Family would like a definitive diagnosis if possible. We will restart patient's Augmentin which was started at the end of that last admission earlier this past week. We will hold off on consulting infectious diseases for now unless needed clinically as she was involved earlier this week. Patient has an IVC filter in place which will serve as her DVT prophylaxis. Her legs are not in a good condition for the SCDs and obviously with the bleeding she cannot use the prophylaxis. Time spent today is 40 minutes with greater than 50% in counseling and coordination of care most of which in discussion with patient regarding care plan and progress. Past Medical History Past Medical History As noted below in the problem list. Patient tells me that she was well up until October when she began losing weight and noted altered bowel habits. She was admitted to [facility] in early November with severe peritonitis and sepsis secondary to a perforating cecal mass. Family tells me that they have never actually had a biopsy of the mass but is suspected to be colon cancer. Patient was never well enough to submit to colonoscopy for biopsy. She had COVID in November during which she was quite ill. [facility] on chronic diastolic congestive heart failure and continued debility from the ilio psoas abscess on the right. She had another admission to Dr. Barreto last week continued decline now unable to eat and was started on TPN during that admission. She was only home for 2 days before readmitted now back to the [facility] service. I have spoken with Dr. Barreto today and given this patient is not his continuity primary care patient he would prefer that we continue to care for the patient during this admission. Cardiovascular: CAD, CHF, HTN GI: GERD Heme/Onc: Other Past Surgical History Past Surgical History: Pacemaker, CABG, Total knee replacement Family History Family History Family history is reviewed in full and noncontributory to the present illness. Notes for social history patient lives with her youngest daughter and granddaughter Candy Figueroa best found at [phone]. 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 Patient is a DO NOT RESUSCITATE DO NOT INTUBATE status. Family History: Hypertension Social History Smoke: No ALCOHOL: none Drugs: None Current Problem List Problems: (1) Severe protein-calorie malnutrition (2) Severe anemia (3) Iliopsoas abscess on right (4) Acute blood loss anemia (5) Mass of cecum (6) Chronic CHF (congestive heart failure) (7) Pacemaker Current Medications Current Medications Current Medications Pantoprazole Sodium (PROTONIX VIAL for IV PUSH) 40 mg DAILYAC IVP Last administered on 03/22/22at 08:26; Start 03/22/22 at 08:00 Active Scripts Active Reported Isosorbide Mononitrate Er (Isosorbide Mononitrate) 30 Mg Tab.er.24h 1 Tab PO DAILY Protonix (Pantoprazole Sodium) 40 Mg Tablet.dr 40 Mg PO DAILYAC Carafate (Sucralfate) 1 Gm Tablet 1 Tab PO QIDACHS 30 Days Ferrous Sulfate 325 Mg Tablet 1 Tab PO DAILY 60 Days Coenzyme Q10 (Ubidecarenone) 200 Mg Capsule 200 Mg PO DAILY Nifedipine Er (Nifedipine) 60 Mg Tablet.er 60 Mg PO DAILY Carvedilol 25 Mg Tablet 25 Mg PO BID AC Allergies Allergies: Coded Allergies: ceftriaxone (Verified Allergy, Intermediate, Rash, 12/24/21) Vitals Vitals Vital Signs Date Time Temp Pulse Resp B/P (MAP) Pulse Ox O2 Delivery O2 Flow Rate FiO2 03/22/22 07:00 97.0 73 18 109/62 (78) 93 Room Air 97.0 In general patient is pale cachectic laying in bed resting comfortably mildly dy spneic in no acute distress. She is alert and appropriately interactive HEENT exam is unremarkable for acute abnormality Neck is soft and supple no adenopathy or thyromegaly noted Chest is clear to auscultation Heart S1-S2 normal regular rate and rhythm no murmurs or gallops are noted Abdomen soft nontender nondistended no masses organomegaly noted Extremity exam is notable for 1+ bipedal edema. PICC line is in place some mild swelling in her distal right upper extremity. No evidence of DVT in that right upper extremity no swelling or tenderness noted proximally Labs Labs Labs reviewed from [facility] emergency department notable for white count of 7.3 hemoglobin of 6.6 platelet count of 270 lactate is 1.5 liver function tests are normal bilirubin is 0.1 BUN is 30 creatinine is 0.9 serum sodium is 140 total protein is 3.9 serum albumin is 0.8 urinalysis demonstrates white count of too numerous to count stool occult blood is positive cultures are pending Images Images Chest x-ray reviewed from [facility] and negative for acute abnormality. Right-sided PICC with tip in the SVC noted. Sternotomy wires are noted. Small bilateral pleural effusions. No other imaging was done VTE Prophylaxis Ordered VTE Prophylaxis Devices: Yes VTE Pharmacological Prophylaxi: No Assessment/Plan Assessment/Plan Plan as noted above This note was created using [employer] Safety Step and may have omissions and/or errors due to the nature of real-time voice gauger chief delivery. Justifications for Admission Other Justification Lower extremity swelling NELLA THORNTON MD March 22, 2022 11:08
[2022-03-22] MEDS: SUCRALFATE 1 GM TABLET. PO SCH ×3 (11:30→20:43)
[2022-03-22] MEDS ORDERED: PANTOPRAZOLE 40 MG TABLET.DR. PO SCH (11:30)
[2022-03-22] MEDS: AMOXICILLIN/K CLAV 500/125MG TABLET. PO SCH ×2 (12:00→20:43)
[2022-03-22] MEDS: FERROUS SULFATE 325 MG TABLET. PO SCH (12:00)
[2022-03-22] MEDS: ISOSORBIDE MONONITRATE ER 30 MG TAB.ER.24H PO SCH (12:00)
[2022-03-22] MEDS ORDERED: AA 4.25 %/CALCIUM/LYTES/D5W 1,000 ML IV SCH (12:30)
[2022-03-22 13:00] LABS: BASO % 1 % (0-3); EOS # 0.1 x10^3/uL (0.0-0.7); EOS % 1 % (0-3); HEMATOCRIT 26.4 % (36.0-47.0); HEMOGLOBIN 8.6 g/dL (12.0-15.5); LYMPH # 1.3 x10^3/uL (1.0-4.8); LYMPH % 18 % (24-48); MEAN CORPUSCULAR HEMOGLOBIN 29 pg (25-35); MEAN CORPUSCULAR HGB CONC 33 g/dL (31-37); MEAN CORPUSCULAR VOLUME 87 fL (79-100); MONO # 0.3 x10^3/uL (0.0-1.1); MONO % 5 % (0-9); NEUT # 5.4 x10^3/uL (1.8-7.7); NEUT % 76 % (31-73); PLATELET COUNT 281 x10^3/uL (140-400); RED BLOOD COUNT 3.02 x10^6/uL (3.50-5.40); RED CELL DISTRIBUTION WIDTH 16.3 % (11.5-14.5); WHITE BLOOD COUNT 7.2 x10^3/uL (4.0-11.0)
[2022-03-22 13:19] LABS: PHOSPHORUS 4.3 mg/dL (2.6-4.7)
[2022-03-22 13:20] LABS: ALBUMIN 0.8 g/dL (3.4-5.0); ALBUMIN/GLOBULIN RATIO 0.2 (1.0-1.7); CALCIUM 7.3 mg/dL (8.5-10.1); CREATININE 0.9 mg/dL (0.6-1.0); GFR 72.2; POTASSIUM 3.6 mmol/L (3.5-5.1); TOTAL BILIRUBIN 0.3 mg/dL (0.2-1.0); TOTAL PROTEIN 4.6 g/dL (6.4-8.2)
[2022-03-22] MEDS: TPN PER PHARMACY MC PRN (14:06)
--- NOTE | 2022-03-22 14:21 | PDOC2 ---
CONSULT Date of Consult Date of Consult DATE: 03/22/22 TIME: 14:10 Reason for Consult Reason for Consult: Anemia, heme positive stool History of Present Illness Reason for Visit: This is an 86-year-old female who presents again to the hospital here at [facility] this time with recurrent anemia. She was here several weeks ago for CHF, sepsis and pulmonary emboli. She has a complex history including according to the record at least a cecal mass with probable metastatic disease documented at [facility] sometime in the recent past. This sounds like colon cancer and she claims never to have had a colonoscopy. However those records are not readily available to me today. However they play a significant role because of her recurrent anemia and heme positive stool. She is awake today and is able to answer questions but claims to know nothing about the details of this cecal mass or her prior work-up at [facility]. She apparently had an abscess that was drained with some sort of drain which is still in place. She is eating small amounts of food in the outpatient setting. She presented to [facility] with weakness and was transferred here because of the presumed chronic GI bleed. As I review her records she has been anemic for several weeks even with her admission 3 weeks ago but not to the degree she is presently. She denies any overt bleeding but not sure she really checks very often. Past Medical History Cardiovascular: CAD, CHF, HTN GI: GERD, Other (Reported cecal mass with possible metastatic disease) Heme/Onc: Other Past Surgical History Past Surgical History: Pacemaker, CABG, Total knee replacement Family History Family History: Hypertension Social History No ALCOHOL: none Drugs: None Lives: Alone Current Medications Current Medications Current Medications Pantoprazole Sodium (PROTONIX VIAL for IV PUSH) 40 mg DAILYAC IVP Last ad ministered on 03/22/22at 08:26; Start 03/22/22 at 08:00 Ferrous Sulfate (Feosol) 325 mg DAILY PO ; Start 03/22/22 at 12:00 Isosorbide Mononitrate (Imdur) 30 mg DAILY PO ; Start 03/22/22 at 12:00 Pantoprazole Sodium (Protonix) 40 mg DAILYAC PO ; Start 03/22/22 at 11:30; Status Cancel Sucralfate (Carafate) 1 gm QIDACHS PO ; Start 03/22/22 at 11:30 Carvedilol (Coreg) 25 mg BIDWMEALS PO ; Start 03/22/22 at 17:00 Nifedipine (Procardia Xl) 60 mg DAILY PO ; Start 03/22/22 at 12:00 Amoxicillin/ Clavulanate Potassium (Augmentin 500/ 125mg) 1 tab BID PO ; Start 03/22/22 at 12:00 Info (Tpn Per Pharmacy) 1 each PRN DAILY PRN MC SEE COMMENTS Last administered on 03/22/22at 14:06; Start 03/22/22 at 12:15 Amino Acids/ Electrolytes/ Dextrose 1,000 ml @ 80 mls/hr [id number] IV Last administered on 03/22/22at 13:04; Start 03/22/22 at 12:30; Stop 03/22/22 at 21:59 Sodium Chloride 90 meq/Potassium Chloride 50 meq/ Potassium Phosphate 13.6 mmol/Magnesium Sulfate 10 meq/ Multivitamins 10 ml/Zinc/Copper/ Manganese/ Selenium 1 ml/ Total Parenteral Nutrition/Amino Acids/Dextrose/ Fat Emulsion Intravenous 1,512 ml @ 63 mls/hr TPN CONT IV ; Start 03/22/22 at 22:00; Stop 03/23/22 at 21:59 Active Scripts Active Reported Isosorbide Mononitrate Er (Isosorbide Mononitrate) 30 Mg Tab.er.24h 1 Tab PO DAILY Protonix (Pantoprazole Sodium) 40 Mg Tablet.dr 40 Mg PO DAILYAC Carafate (Sucralfate) 1 Gm Tablet 1 Tab PO QIDACHS 30 Days Ferrous Sulfate 325 Mg Tablet 1 Tab PO DAILY 60 Days Coenzyme Q10 (Ubidecarenone) 200 Mg Capsule 200 Mg PO DAILY Nifedipine Er (Nifedipine) 60 Mg Tablet.er 60 Mg PO DAILY Carvedilol 25 Mg Tablet 25 Mg PO BID AC Allergies Allergies: Coded Allergies: ceftriaxone (Verified Allergy, Intermediate, Rash, 12/24/21) Physical Exam General: Alert, Other (Mildly confused, limited historian) HEENT: Atraumatic, PERRLA Lungs: Clear to auscultation Heart: Regular rate, Normal S1, Normal S2 Abdomen: Normal bowel sounds, Soft, No tenderness, No masses, Other (Some sort of drainage tube in the right abdomen) Extremities: No clubbing Neuro: Normal speech Psych/Mental Status: Other (Awake, answers questions but has a limited history) Vitals VITALS Vital Signs Date Time Temp Pulse Resp B/P (MAP) Pulse Ox O2 Delivery O2 Flow Rate FiO2 03/22/22 11:00 69 18 94 Nasal Cannula 2.0 03/22/22 07:00 97.0 109/62 (78) 97.0 Labs Labs Laboratory Tests Test 03/22/22 12:45 White Blood Count 7.2 x10^3/uL (4.0-11.0) Red Blood Count 3.02 x10^6/uL (3.50-5.40) Hemoglobin 8.6 g/dL (12.0-15.5) Hematocrit 26.4 % (36.0-47.0) Mean Corpuscular Volume 87 fL (79-100) Mean Corpuscular Hemoglobin 29 pg (25-35) Mean Corpuscular Hemoglobin Concent 33 g/dL (31-37) Red Cell Distribution Width 16.3 % (11.5-14.5) Platelet Count 281 x10^3/uL (140-400) Neutrophils (%) (Auto) 76 % (31-73) Lymphocytes (%) (Auto) 18 % (24-48) Monocytes (%) (Auto) 5 % (0-9) Eosinophils (%) (Auto) 1 % (0-3) Basophils (%) (Auto) 1 % (0-3) Neutrophils # (Auto) 5.4 x10^3/uL (1.8-7.7) Lymphocytes # (Auto) 1.3 x10^3/uL (1.0-4.8) Monocytes # (Auto) 0.3 x10^3/uL (0.0-1.1) Eosinophils # (Auto) 0.1 x10^3/uL (0.0-0.7) Basophils # (Auto) 0.0 x10^3/uL (0.0-0.2) Sodium Level 140 mmol/L (136-145) Potassium Level 3.6 mmol/L (3.5-5.1) Chloride Level 109 mmol/L (98-107) Carbon Dioxide Level 22 mmol/L (21-32) Anion Gap 9 (6-14) Blood Urea Nitrogen 28 mg/dL (7-20) Creatinine 0.9 mg/dL (0.6-1.0) Estimated GFR (Cockcroft-Gault) 72.2 BUN/Creatinine Ratio 31 (6-20) Glucose Level 84 mg/dL (70-99) Calcium Level 7.3 mg/dL (8.5-10.1) Phosphorus Level 4.3 mg/dL (2.6-4.7) Magnesium Level 2.0 mg/dL (1.8-2.4) Total Bilirubin 0.3 mg/dL (0.2-1.0) Aspartate Amino Transf (AST/SGOT) 28 U/L (15-37) Alanine Aminotransferase (ALT/SGPT) 15 U/L (14-59) Alkaline Phosphatase 73 U/L (46-116) Total Protein 4.6 g/dL (6.4-8.2) Albumin 0.8 g/dL (3.4-5.0) Albumin/Globulin Ratio 0.2 (1.0-1.7) Triglycerides Level 204 mg/dL (0-150) Laboratory Tests Test 03/22/22 12:45 White Blood Count 7.2 x10^3/uL (4.0-11.0) Red Blood Count 3.02 x10^6/uL (3.50-5.40) Hemoglobin 8.6 g/dL (12.0-15.5) Hematocrit 26.4 % (36.0-47.0) Mean Corpuscular Volume 87 fL (79-100) Mean Corpuscular Hemoglobin 29 pg (25-35) Mean Corpuscular Hemoglobin Concent 33 g/dL (31-37) Red Cell Distribution Width 16.3 % (11.5-14.5) Platelet Count 281 x10^3/uL (140-400) Neutrophils (%) (Auto) 76 % (31-73) Lymphocytes (%) (Auto) 18 % (24-48) Monocytes (%) (Auto) 5 % (0-9) Eosinophils (%) (Auto) 1 % (0-3) Basophils (%) (Auto) 1 % (0-3) Neutrophils # (Auto) 5.4 x10^3/uL (1.8-7.7) Lymphocytes # (Auto) 1.3 x10^3/uL (1.0-4.8) Monocytes # (Auto) 0.3 x10^3/uL (0.0-1.1) Eosinophils # (Auto) 0.1 x10^3/uL (0.0-0.7) Basophils # (Auto) 0.0 x10^3/uL (0.0-0.2) Sodium Level 140 mmol/L (136-145) Potassium Level 3.6 mmol/L (3.5-5.1) Chloride Level 109 mmol/L (98-107) Carbon Dioxide Level 22 mmol/L (21-32) Anion Gap 9 (6-14) Blood Urea Nitrogen 28 mg/dL (7-20) Creatinine 0.9 mg/dL (0.6-1.0) Estimated GFR (Cockcroft-Gault) 72.2 BUN/Creatinine Ratio 31 (6-20) Glucose Level 84 mg/dL (70-99) Calcium Level 7.3 mg/dL (8.5-10.1) Phosphorus Level 4.3 mg/dL (2.6-4.7) Magnesium Level 2.0 mg/dL (1.8-2.4) Total Bilirubin 0.3 mg/dL (0.2-1.0) Aspartate Amino Transf (AST/SGOT) 28 U/L (15-37) Alanine Aminotransferase (ALT/SGPT) 15 U/L (14-59) Alkaline Phosphatase 73 U/L (46-116) Total Protein 4.6 g/dL (6.4-8.2) Albumin 0.8 g/dL (3.4-5.0) Albumin/Globulin Ratio 0.2 (1.0-1.7) Triglycerides Level 204 mg/dL (0-150) Assessment/Plan Assessment/Plan Recurrent anemia. Apparently heme positive from the ER at [facility]. As we review the record she has a diagnosis of a cecal mass that is probably colon cancer. This is the likely source of her bleeding although other possibilities cannot be excluded. The family was aware that something of this nature was present from a evaluation in the past but we do not have the details and no biopsy was ever done. She apparently had an abscess related to this cecal mass that was drained with interventional catheter which is still in place. She was advised apparently to get into hospice but the family and patient are not willing to proceed in that regard. Cecal mass. This is based on word of mouth from previous admissions relative to a [facility] admission months in the past. There was no biopsy done but the imaging and presentation were supportive of colon cancer with metastatic disease at that time. Plan: Supportive care with transfusion and that short-term makes sense but long- term if this is a unresectable colon cancer it will continue to bleed and will cause significant decline in her care. Defining what this is would be useful but colonoscopy will be difficult for this patient particularly with bowel prep and her morbid condition. A CEA level and imaging studies may provide a modicum of improvement diagnostic accuracy which may allow us to discuss options more clearly with the family. HARRIS GOODMAN MD March 22, 2022 14:21
[2022-03-22 15:00] VITALS: BP 124/68
[2022-03-22] MEDS ORDERED: IOHEXOL 300 MG/ML 100ML VIAL. IV ONE (15:00)
[2022-03-22] MEDS ORDERED: IOHEXOL 240 MG/ML 50ML VIAL. PO ONE (15:00)
[2022-03-22] MEDS ORDERED: CONTRAST GIVEN. MC PRN (15:15)
--- NOTE | 2022-03-22 16:56 | NUR ---
Pharmacy TPN Dosing Note S: REID RUIZ is a 86 year old F Currently receiving TPN started 03/22/22 B:Pertinent PMH: MALNOURISH Height: 5 feet, 2 inches Weight: 71.1 kg Current diet: LABS: Sodium: 140 Potassium: 3.6 Chloride: 109 Calcium: 7.3 Corrected Calcium: 9.86 Magnesium: 2.0 CO2: 22 SCr: 0.9 Glucose: 84 Albumin: 0.8 AST: 16 ALT: 60 TPN FORMULA: TPN TYPE: AMINO ACIDS: 60 gm DEXTROSE: 195 gm LIPIDS: 20 gm SODIUM CHLORIDE: 90 mEq SODIUM ACETATE: mEq SODIUM PHOSPHATE: mmol POTASSIUM CHLORIDE: 50 mEq POTASSIUM ACETATE: mEq POTASSIUM PHOSPHATE: 13.6 mmol MAGNESIUM: 10 mEq CALCIUM: mEq INSULIN: units MULTIPLE VITAMIN: 10 ml TRACE ELEMENTS: 1 ml(s) TPN PLAN: HOUSE TPN R: Begin TPN AT 63ML/HR Will monitor electrolytes, glucose, and tolerance to TPN. JOCELYNE LI [facility], 03/22/22 [id number]
[2022-03-22] MEDS: CARVEDILOL 12.5 MG TABLET. PO SCH (18:08)
[2022-03-22 19:36] VITALS: BP 125/72
[2022-03-22] MEDS ORDERED: TOTAL PARENTERAL NUTRITION 1,446.4667 ML, AMINO ACID 15% 60 GM, DEXTROSE 70 % IN WATER ... IV SCH (22:00)
[2022-03-22 22:34] VITALS: BP 97/55
[2022-03-23 02:37] VITALS: BP 94/57
[2022-03-23 05:22] LABS: BASO # 0.1 x10^3/uL (0.0-0.2); BASO % 1 % (0-3); EOS # 0.1 x10^3/uL (0.0-0.7); EOS % 2 % (0-3); HEMATOCRIT 25.1 % (36.0-47.0); HEMOGLOBIN 8.4 g/dL (12.0-15.5); LYMPH # 1.4 x10^3/uL (1.0-4.8); LYMPH % 19 % (24-48); MEAN CORPUSCULAR HEMOGLOBIN 29 pg (25-35); MEAN CORPUSCULAR HGB CONC 34 g/dL (31-37); MEAN CORPUSCULAR VOLUME 87 fL (79-100); MONO # 0.2 x10^3/uL (0.0-1.1); MONO % 3 % (0-9); NEUT # 5.9 x10^3/uL (1.8-7.7); NEUT % 76 % (31-73); PLATELET COUNT 290 x10^3/uL (140-400); RED BLOOD COUNT 2.88 x10^6/uL (3.50-5.40); RED CELL DISTRIBUTION WIDTH 17.4 % (11.5-14.5); WHITE BLOOD COUNT 7.8 x10^3/uL (4.0-11.0)
[2022-03-23 05:58] LABS: ALBUMIN 0.9 g/dL (3.4-5.0); ALBUMIN/GLOBULIN RATIO 0.3 (1.0-1.7); CALCIUM 7.1 mg/dL (8.5-10.1); GFR 63.9; PHOSPHORUS 4.4 mg/dL (2.6-4.7); TOTAL BILIRUBIN 0.1 mg/dL (0.2-1.0); TOTAL PROTEIN 4.5 g/dL (6.4-8.2)
[2022-03-23 06:11] VITALS: BP 102/65
[2022-03-23 07:09] LABS: % BANDS 4 % (0-9); % EOS 2 % (0-5); % LYMPHS 13 % (24-48); % MONOS 2 % (0-10); % SEGS 79 % (35-66); PLT ESTIMATE ADEQUATE (ADEQUATE)
[2022-03-23] MEDS: CARVEDILOL 12.5 MG TABLET. PO SCH ×3 (08:00→16:29)
[2022-03-23] MEDS: PANTOPRAZOLE IV PUSH 40 MG VIAL. IVP SCH (08:13)
[2022-03-23] MEDS: AMOXICILLIN/K CLAV 500/125MG TABLET. PO SCH ×2 (08:14→20:35)
[2022-03-23] MEDS: FERROUS SULFATE 325 MG TABLET. PO SCH (08:14)
[2022-03-23] MEDS: ISOSORBIDE MONONITRATE ER 30 MG TAB.ER.24H PO SCH (08:15)
[2022-03-23] MEDS: SUCRALFATE 1 GM TABLET. PO SCH ×4 (08:15→20:35)
--- NOTE | 2022-03-23 09:35 | RAD ---
EXAMINATION: CT abdomen and pelvis with IV contrast. INDICATION:86 years, Female, cecal mass, evaluate for metastasis. TECHNIQUE: Axial CT images of the abdomen and pelvis were obtained. Coronal and sagittal reformatted performed. COMPARISON: None. Exposure: One or more of the following individualized dose reduction techniques were utilized for thi s examination: 1. Automated exposure control 2. Adjustment of the mA and/or kV according to patient size 3. Use of iterative reconstruction technique. FINDINGS: LOWER CHEST: Moderate bilateral pleural effusions with associated compressive atelectasis. Patchy area of groundgl ass opacities in the right middle lobe. ABDOMEN/PELVIS: There is an 9.4 x 6.8 x 5.9 cm, lobulated cecal mass involving ileocecal valve without obstruction. T he mass appears to be extends beyond the lumen. Partially visualized appendix appears normal. Enlarge d locoregional lymphadenopathy in the right lower quadrant mesentery measures 2.0 cm in short axis. S mall hiatal hernia. No bowel dilation. There is a 0.3 cm hypoattenuating lesion in the inferior right hepatic lobe (series 4 image 23), too small to characterize. There is an ill-defined perihepatic soft tissue nodule adjacent to the posteri or inferior right hepatic lobe measures 1.2 cm (series 2 image 29). Gallbladder, biliary ducts, spleen and pancreas are unremarkable. No adrenal nodule. No hydronephrosi s or nephrolithiasis in either kidney. Indeterminate 1.4 cm hypoattenuating lesion in the inferior po le right kidney. Subcentimeter hypodensities in the right renal cortex. Moderate aortoiliac atherosclerotic calcifications without narrowing or dilation. Mesenteric arteries and portal veins are patent. IVC filter is in place. Small to moderate abdominopelvic ascites with d iffuse mesenteric edema. No retroperitoneal or pelvic lymphadenopathy by size criteria. Decompressed urinary bladder which limits evaluation. Foleys catheter is in place with nondependent g as. Retroverted, retroflexed uterus. Ill-defined 3.9 cm hypoattenuating lesion in the uterine fundus, likely intramural fibroid. Ill-defined right iliacus muscle fluid collection measures 6.4 x 2.9 cm, with percutaneous drain catheter seen laterally. MUSCULOSKELETAL STRUCTURES: Bilateral L5 pars defect with grade 1 anterolisthesis of L5 over S1 and severe degenerative changes. Multilevel degenerative changes in the spine. No acute osseous process or suspicious lesion. Diffuse severe osteopenia. IMPRESSION: 1. A 9.4 cm cecal mass involving the ileocecal valve without obstruction, highly suspicious for marquis gnancy The mass appears to be extends beyond the lumen without obstruction. 2. Enlarged locoregional lymphadenopathy in the right lower quadrant mesentery. 3. Ill-defined 1.2 cm perihepatic soft tissue nodule adjacent to the posterior inferior right hepati c lobe, indeterminate for metastatic disease. 4. A 0.3 cm hypoattenuating focus in the inferior right hepatic lobe, too small to characterize. Giv en cecal findings, recommend further evaluation with MRI to exclude metastasis. 5. Indeterminate 1.4 cm hypoattenuating lesion in the inferior pole right kidney. This can be furthe r evaluated by the recommended MRI. 6. Ill-defined right iliacus muscle fluid collection measures 6.4 x 2.9 cm, with percutaneous drain catheter seen laterally. 7. Findings of fluid overload with moderate bilateral pleural effusions, small abdominopelvic ascite s with mesenteric edema and severe diffuse anasarca. 8. Patchy area of groundglass opacities in the right middle lobe could be pulmonary edema. 9. Other chronic/incidental findings, as described above.. Electronically signed by: Hilaria Davila MD (03/23/2022 9:33 AM) [facility]
[2022-03-23 11:00] VITALS: BP 129/69
[2022-03-23] MEDS: TPN PER PHARMACY MC PRN ×2 (12:30→12:34)
--- NOTE | 2022-03-23 13:48 | PDOC ---
GI PROGRESS NOTES Date of Service: Date/Time DATE: 03/23/22 TIME: 13:45 Subjective Subjective Feeling better since blood transfusion. Daughter in the room and we discussed her situation. Poor p.o. intake but on TPN both here and at home. Objective Vitals Vital Signs Date Time Temp Pulse Resp B/P (MAP) Pulse Ox O2 Delivery O2 Flow Rate FiO2 03/23/22 11:00 97.5 74 18 129/69 (89) 97 Nasal Cannula 2.0 97.5 03/23/22 08:15 62 102/65 03/23/22 08:14 62 102/65 03/23/22 08:00 Nasal Cannula 2.0 03/23/22 08:00 62 102/65 03/23/22 06:11 97.3 62 16 102/65 (77) 98 Nasal Cannula 2.0 97.3 03/23/22 02:37 96.6 62 18 94/57 (69) 96 Nasal Cannula 2.0 96.6 03/22/22 22:34 96.0 61 16 97/55 (69) 94 Nasal Cannula 2.0 96.0 03/22/22 20:16 Nasal Cannula 2.0 03/22/22 19:36 97.6 63 16 125/72 (89) 100 Nasal Cannula 2.0 97.6 03/22/22 18:08 66 136/88 03/22/22 15:00 97.4 57 18 124/68 (86) 97 Room Air 97.4 Labs Labs Laboratory Tests Test 03/22/22 18:04 03/22/22 23:59 03/23/22 05:10 03/23/22 06:02 Glucose (Fingerstick) 79 mg/dL (70-99) 112 mg/dL (70-99) 127 mg/dL (70-99) White Blood Count 7.8 x10^3/uL (4.0-11.0) Red Blood Count 2.88 x10^6/uL (3.50-5.40) Hemoglobin 8.4 g/dL (12.0-15.5) Hematocrit 25.1 % (36.0-47.0) Mean Corpuscular Volume 87 fL (79-100) Mean Corpuscular Hemoglobin 29 pg (25-35) Mean Corpuscular Hemoglobin Concent 34 g/dL (31-37) Red Cell Distribution Width 17.4 % (11.5-14.5) Platelet Count 290 x10^3/uL (140-400) Neutrophils (%) (Auto) 76 % (31-73) Lymphocytes (%) (Auto) 19 % (24-48) Monocytes (%) (Auto) 3 % (0-9) Eosinophils (%) (Auto) 2 % (0-3) Basophils (%) (Auto) 1 % (0-3) Neutrophils # (Auto) 5.9 x10^3/uL (1.8-7.7) Lymphocytes # (Auto) 1.4 x10^3/uL (1.0-4.8) Monocytes # (Auto) 0.2 x10^3/uL (0.0-1.1) Eosinophils # (Auto) 0.1 x10^3/uL (0.0-0.7) Basophils # (Auto) 0.1 x10^3/uL (0.0-0.2) Segmented Neutrophils % 79 % (35-66) Band Neutrophils % 4 % (0-9) Lymphocytes % 13 % (24-48) Monocytes % 2 % (0-10) Eosinophils % 2 % (0-5) Platelet Estimate Adequate (ADEQUATE) Sodium Level 140 mmol/L (136-145) Potassium Level 4.0 mmol/L (3.5-5.1) Chloride Level 109 mmol/L (98-107) Carbon Dioxide Level 21 mmol/L (21-32) Anion Gap 10 (6-14) Blood Urea Nitrogen 32 mg/dL (7-20) Creatinine 1.0 mg/dL (0.6-1.0) Estimated GFR (Cockcroft-Gault) 63.9 BUN/Creatinine Ratio 32 (6-20) Glucose Level 117 mg/dL (70-99) Calcium Level 7.1 mg/dL (8.5-10.1) Phosphorus Level 4.4 mg/dL (2.6-4.7) Magnesium Level 2.0 mg/dL (1.8-2.4) Total Bilirubin 0.1 mg/dL (0.2-1.0) Aspartate Amino Transf (AST/SGOT) 29 U/L (15-37) Alanine Aminotransferase (ALT/SGPT) 20 U/L (14-59) Alkaline Phosphatase 73 U/L (46-116) Total Protein 4.5 g/dL (6.4-8.2) Albumin 0.9 g/dL (3.4-5.0) Albumin/Globulin Ratio 0.3 (1.0-1.7) Test 03/23/22 11:18 Glucose (Fingerstick) 113 mg/dL (70-99) Imaging Imaging CT scan of the abdomen and pelvis LOWER CHEST: Moderate bilateral pleural effusions with associated compressive atelectasis. Patchy area of groundglass opacities in the right middle lobe. ABDOMEN/PELVIS: There is an 9.4 x 6.8 x 5.9 cm, lobulated cecal mass involving ileocecal valve without obstruction. The mass appears to be extends beyond the lumen. Partially visualized appendix appears normal. Enlarged locoregional lymphadenopathy in the right lower quadrant mesentery measures 2.0 cm in short axis. Small hiatal h ernia. No bowel dilation. There is a 0.3 cm hypoattenuating lesion in the inferior right hepatic lobe (series 4 image 23), too small to characterize. There is an ill-defined perihepatic soft tissue nodule adjacent to the posterior inferior right hepatic lobe measures 1.2 cm (series 2 image 29). Gallbladder, biliary ducts, spleen and pancreas are unremarkable. No adrenal nodule. No hydronephrosis or nephrolithiasis in either kidney. Indeterminate 1.4 cm hypoattenuating lesion in the inferior pole right kidney. Subcentimeter hypodensities in the right renal cortex. Moderate aortoiliac atherosclerotic calcifications without narrowing or dilation. Mesenteric arteries and portal veins are patent. IVC filter is in place. Small to moderate abdominopelvic ascites with diffuse mesenteric edema. No retroperitoneal or pelvic lymphadenopathy by size criteria. Decompressed urinary bladder which limits evaluation. Foleys catheter is in place with nondependent gas. Retroverted, retroflexed uterus. Ill-defined 3.9 cm hypoattenuating lesion in the uterine fundus, likely intramural fibroid. Ill- defined right iliacus muscle fluid collection measures 6.4 x 2.9 cm, with percutaneous drain catheter seen laterally. MUSCULOSKELETAL STRUCTURES: Bilateral L5 pars defect with grade 1 anterolisthesis of L5 over S1 and severe degenerative changes. Multilevel degenerative changes in the spine. No acute osseous process or suspicious lesion. Diffuse severe osteopenia. IMPRESSION: 1. A 9.4 cm cecal mass involving the ileocecal valve without obstruction, highly suspicious for malignancy The mass appears to be extends beyond the lumen without obstruction. 2. Enlarged locoregional lymphadenopathy in the right lower quadrant mesentery. 3. Ill-defined 1.2 cm perihepatic soft tissue nodule adjacent to the posterior inferior right hepatic lobe, indeterminate for metastatic disease. 4. A 0.3 cm hypoattenuating focus in the inferior right hepatic lobe, too small to characterize. Given cecal findings, recommend further evaluation with MRI to exclude metastasis. 5. Indeterminate 1.4 cm hypoattenuating lesion in the inferior pole right kidney. This can be further evaluated by the recommended MRI. 6. Ill-defined right iliacus muscle fluid collection measures 6.4 x 2.9 cm, with percutaneous drain catheter seen laterally. 7. Findings of fluid overload with moderate bilateral pleural effusions, small abdominopelvic ascites with mesenteric edema and severe diffuse anasarca. 8. Patchy area of groundglass opacities in the right middle lobe could be pulmonary edema. 9. Other chronic/incidental findings, as described above.. Assessment Assessment Anemia. With heme positive stool. History and now CT scan suggest large cecal mass as the source for blood loss. This is likely a colon cancer with evidence of at least local metastatic disease. She may have other sources for her anemia as well but this is the most likely ongoing contribution. She seems stable and has not had overt bleeding but she will likely rebleed particularly if blood thinners are needed because of her history of blood clots and PE. This will complicate the issue and should be considered carefully. Cecal mass consistent with colon cancer with likely metastatic disease. Not a surgical or colonoscopic candidate. I ordered a CEA to help confirm this diagnosis but it seems most likely primary colon cancer Plan: Iron supplementation may allow us to maintain a reasonable hemoglobin level. I will give her IV iron presently and she can try oral iron at home. However if it is difficult for her to take or gives her side effects such as constipation, further IV iron injections in the outpatient setting would be prudent and will allow hopefully as to avoid admissions and transfusions. I had a long discussion with her daughter who is maintaining care at home about these issues. They are not ready to consider hospice at this point. She was agreeable and understood the situation. Patient appears improved and may be ready for discharge soon but I will defer to the hospitalist on this issue. Justicifation of Admission Dx: Justifications for Admission: Justification of Admission Dx: Yes HARRIS GOODMAN MD March 23, 2022 13:48
[2022-03-23] MEDS ORDERED: IRON SUCROSE COMPLEX 200 MG in IV NORMAL SALINE 100ML 100 ML IV ONE (14:00)
--- NOTE | 2022-03-23 14:53 | NUR ---
Pharmacy TPN Dosing Note S: REID RUIZ is a 86 year old F Currently receiving TPN started 03/22/22 B:Pertinent PMH: MALNOURISH Height: 5 feet, 2 inches Weight: 70.5 kg Current diet: LABS: Sodium: 140 Potassium: 4.0 Chloride: 109 Calcium: 7.1 Corrected Calcium: 9.58 Magnesium: 2.0 CO2: 21 SCr: 0.9 Glucose: 113 Albumin: 0.9 AST: 29 ALT: 73 TPN FORMULA: TPN TYPE: AMINO ACIDS: 60 gm DEXTROSE: 195 gm LIPIDS: 20 gm SODIUM CHLORIDE: 90 mEq SODIUM ACETATE: mEq SODIUM PHOSPHATE: mmol POTASSIUM CHLORIDE: 50 mEq POTASSIUM ACETATE: mEq POTASSIUM PHOSPHATE: 13.6 mmol MAGNESIUM: 10 mEq CALCIUM: mEq INSULIN: units MULTIPLE VITAMIN: 10 ml TRACE ELEMENTS: 1 ml(s) TPN PLAN: HOUSE TPN R: Continue TPN AT 63ML/HR Will monitor electrolytes, glucose, and tolerance to TPN. JOCELYNE LI [facility], 03/23/22 [id number]
[2022-03-23 15:00] VITALS: BP 115/67
--- NOTE | 2022-03-23 15:58 | PDOC ---
GENERAL General: Patient examined chart reviewed seen with daughter and granddaughter with whom she lives. Discussed with Dr. Loera and nursing. We appreciate Dr. Loera's thorough and lengthy evaluation of this patient. The family was very happy to have the time and explanations from the GI doctor and has helped them with decision-making. Patient is hoping to discharge home as soon as possible. Her granddaughter tells me that they already have a hospital bed and commode at home from the last admission. There is TPN ready to go and [facility] is al ready set to attend to them. They are not interested in hospice but understand the gravity of her situation. 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 We will discontinue TPN after this current bag is completed, restart Clinimix until she is discharged, and then back on TPN at home. The family wants to be certain that she is sent home on the antibiotics that she needs as they do not remember seeing that from the last admission. She will need at least 2 weeks of Augmentin 500mg twice daily (renal dosed) per infectious diseases. Her primary care physician will be handling the TPN orders, lab orders through critical access hospital, and any other discharge needs. Family and patient had no other questions at the end of our discussion. Time spent today is 35 minutes with greater than 50% in counseling and coordination of care most of which in discussion with patient regarding care plan and progress. 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 (3) Severe anemia (4) Acute blood loss anemia (5) Mass of cecum VITAL SIGNS Vital Signs/I&O: Vital Signs Date Time Temp Pulse Resp B/P (MAP) Pulse Ox O2 Delivery O2 Flow Rate FiO2 03/23/22 15:00 97.5 70 18 115/67 (83) 96 Nasal Cannula 2.0 97.5 I & O 03/22/22 03/22/22 03/23/22 15:00 23:00 07:00 Intake Total 118 ml 178 ml 120 ml Output Total 750 ml 400 ml Balance 118 ml -572 ml -280 ml Very frail pale elderly woman resting in her bed no acute distress HEENT exam is unremarkable for acute abnormality Chest bilateral equal air entry though diminished throughout Heart S1-S2 normal regular rate and rhythm no murmurs or gallops are noted Abdomen soft nontender nondistended no masses organomegaly noted Extremity exam is unremarkable for acute abnormality ALLERGIES Allergies: Allergies Coded Allergies Type Severity Reaction Last Updated Verified ceftriaxone Allergy Intermediate Rash 12/24/21 Yes MEDS Medications: Current Medications Medications (Trade) Dose Ordered Sig/Mar Start Time Stop Time Status Last Admin Dose Admin Amino Acids/ Electrolytes/ Dextrose 1,000 ml @ 80 mls/hr [id number] 03/22/22 12:30 03/22/22 21:59 DC 03/22/22 13:04 Amoxicillin/ Clavulanate Potassium (Augmentin 500/ 125mg) 1 tab BID 03/22/22 12:00 03/23/22 08:14 Carvedilol (Coreg) 25 mg BIDWMEALS 03/22/22 17:00 03/22/22 18:08 Ferrous Sulfate (Feosol) 325 mg DAILY 03/22/22 12:00 03/23/22 08:14 Info (CONTRAST GIVEN -- Rx MONITORING) 1 each PRN DAILY PRN 03/22/22 15:15 03/24/22 15:14 Info (Tpn Per Pharmacy) 1 each PRN DAILY PRN 03/22/22 12:15 03/23/22 12:34 Iohexol (Omnipaque 240 Mg/ml) 50 ml 1X ONCE 03/22/22 15:00 03/22/22 15:08 DC 03/22/22 15:00 Iohexol (Omnipaque 300 Mg/ml) 75 ml 1X ONCE 03/22/22 15:00 03/22/22 15:08 DC 03/22/22 15:00 Iron Sucrose 200 mg/Sodium Chloride 110 ml @ 55 mls/hr 1X ONCE 03/23/22 14:00 03/23/22 15:59 03/23/22 14:17 Isosorbide Mononitrate (Imdur) 30 mg DAILY 03/22/22 12:00 03/23/22 08:15 Nifedipine (Procardia Xl) 60 mg DAILY 03/22/22 12:00 03/23/22 08:14 Pantoprazole Sodium (PROTONIX VIAL for IV PUSH) 40 mg DAILYAC 03/22/22 08:00 03/23/22 08:13 Pantoprazole Sodium (Protonix) 40 mg DAILYAC 03/22/22 11:30 Cancel Sodium Chloride 90 meq/Potassium Chloride 50 meq/ Potassium Phosphate 13.6 mmol/Magnesium Sulfate 10 meq/ Multivitamins 10 ml/Zinc/Copper/ Manganese/ Selenium 1 ml/ Total Parenteral Nutrition/Amino Acids/Dextrose/ Fat Emulsion Intravenous 1,512 ml @ 63 mls/hr TPN CONT 03/23/22 22:00 03/24/22 21:59 Sucralfate (Carafate) 1 gm QIDACHS 03/22/22 11:30 03/23/22 08:15 Current Medications Medications (Trade) Dose Ordered Sig/Mar Route PRN Reason Start Time Stop Time Status Last Admin Dose Admin Carvedilol (Coreg) 25 mg BIDWMEALS PO 03/22/22 17:00 03/22/22 18:08 Sodium Chloride 90 meq/Potassium Chloride 50 meq/ Potassium Phosphate 13.6 mmol/Magnesium Sulfate 10 meq/ Multivitamins 10 ml/Zinc/Copper/ Manganese/ Selenium 1 ml/ Total Parenteral Nutrition/Amino Acids/Dextrose/ Fat Emulsion Intravenous 1,512 ml @ 63 mls/hr TPN CONT IV 03/22/22 22:00 03/23/22 21:59 03/22/22 20:44 Iron Sucrose 200 mg/Sodium Chloride 110 ml @ 55 mls/hr 1X ONCE IV 03/23/22 14:00 03/23/22 15:59 03/23/22 14:17 LAB Lab: Laboratory Tests Test 03/22/22 18:04 03/22/22 23:59 03/23/22 05:10 03/23/22 06:02 Glucose (Fingerstick) 79 mg/dL (70-99) 112 mg/dL (70-99) H 127 mg/dL (70-99) H White Blood Count 7.8 x10^3/uL (4.0-11.0) Red Blood Count 2.88 x10^6/uL (3.50-5.40) L Hemoglobin 8.4 g/dL (12.0-15.5) L Hematocrit 25.1 % (36.0-47.0) L Mean Corpuscular Volume 87 fL (79-100) Mean Corpuscular Hemoglobin 29 pg (25-35) Mean Corpuscular Hemoglobin Concent 34 g/dL (31-37) Red Cell Distribution Width 17.4 % (11.5-14.5) H Platelet Count 290 x10^3/uL (140-400) Neutrophils (%) (Auto) 76 % (31-73) H Lymphocytes (%) (Auto) 19 % (24-48) L Monocytes (%) (Auto) 3 % (0-9) Eosinophils (%) (Auto) 2 % (0-3) Basophils (%) (Auto) 1 % (0-3) Neutrophils # (Auto) 5.9 x10^3/uL (1.8-7.7) Lymphocytes # (Auto) 1.4 x10^3/uL (1.0-4.8) Monocytes # (Auto) 0.2 x10^3/uL (0.0-1.1) Eosinophils # (Auto) 0.1 x10^3/uL (0.0-0.7) Basophils # (Auto) 0.1 x10^3/uL (0.0-0.2) Segmented Neutrophils % 79 % (35-66) H Band Neutrophils % 4 % (0-9) Lymphocytes % 13 % (24-48) L Monocytes % 2 % (0-10) Eosinophils % 2 % (0-5) Platelet Estimate Adequate (ADEQUATE) Sodium Level 140 mmol/L (136-145) Potassium Level 4.0 mmol/L (3.5-5.1) Chloride Level 109 mmol/L (98-107) H Carbon Dioxide Level 21 mmol/L (21-32) Anion Gap 10 (6-14) Blood Urea Nitrogen 32 mg/dL (7-20) H Creatinine 1.0 mg/dL (0.6-1.0) Estimated GFR (Cockcroft-Gault) 63.9 BUN/Creatinine Ratio 32 (6-20) H Glucose Level 117 mg/dL (70-99) H Calcium Level 7.1 mg/dL (8.5-10.1) L Phosphorus Level 4.4 mg/dL (2.6-4.7) Magnesium Level 2.0 mg/dL (1.8-2.4) Total Bilirubin 0.1 mg/dL (0.2-1.0) L Aspartate Amino Transferase (AST) 29 U/L (15-37) Alanine Aminotransferase (ALT) 20 U/L (14-59) Alkaline Phosphatase 73 U/L (46-116) Total Protein 4.5 g/dL (6.4-8.2) L Albumin 0.9 g/dL (3.4-5.0) L Albumin/Globulin Ratio 0.3 (1.0-1.7) L Test 03/23/22 11:18 Glucose (Fingerstick) 113 mg/dL (70-99) H Laboratory Tests 03/23/22 05:10 Laboratory Tests 03/23/22 05:10 IMAGING Imaging: PATIENT: REID RUIZ ACCOUNT: [id number] : 1935 LOCATION: [address] [place] [address] AGE: 86 SEX: F EXAM STATUS: ADM IN ORD. PHYSICIAN: HARRIS LOERA MD REASON: cecal mass, ? mets PROCEDURE: CT ABD PELV W/ORAL&IV CONTRAST EXAMINATION: CT abdomen and pelvis with IV contrast. INDICATION:86 years, Female, cecal mass, evaluate for metastasis. TECHNIQUE: Axial CT images of the abdomen and pelvis were obtained. Coronal and sagittal reformatted performed. COMPARISON: None. Exposure: One or more of the following individualized dose reduction techniques were utilized for this examination: 1. Automated exposure control 2. Adjustment of the mA and/or kV according to patient size 3. Use of iterative reconstruction technique. FINDINGS: LOWER CHEST: Moderate bilateral pleural effusions with associated compressive atelectasis. Patchy area of groundglass opacities in the right middle lobe. ABDOMEN/PELVIS: There is an 9.4 x 6.8 x 5.9 cm, lobulated cecal mass involving ileocecal valve without obstruction. The mass appears to be extends beyond the lumen. Partially visualized appendix appears normal. Enlarged locoregional lymphadenopathy in the right lower quadrant mesentery measures 2.0 cm in short axis. Small hiatal hernia. No bowel dilation. There is a 0.3 cm hypoattenuating lesion in the inferior right hepatic lobe (series 4 image 23), too small to characterize. There is an ill-defined perihepatic soft tissue nodule adjacent to the posterior inferior right hepatic lobe measures 1.2 cm (series 2 image 29). Gallbladder, biliary ducts, spleen and pancreas are unremarkable. No adrenal nodule. No hydronephrosis or nephrolithiasis in either kidney. Indeterminate 1.4 cm hypoattenuating lesion in the inferior pole right kidney. Subcentimeter hypodensities in the right renal cortex. Moderate aortoiliac atherosclerotic calcifications without narrowing or dilation. Mesenteric arteries and portal veins are patent. IVC filter is in place. Small to moderate abdominopelvic ascites with diffuse mesenteric edema. No retroperitoneal or pelvic lymphadenopathy by size criteria. Decompressed urinary bladder which limits evaluation. Foleys catheter is in place with nondependent gas. Retroverted, retroflexed uterus. Ill-defined 3.9 cm hypoattenuating lesion in the uterine fundus, likely intramural fibroid. Ill- defined right iliacus muscle fluid collection measures 6.4 x 2.9 cm, with percutaneous drain catheter seen laterally. MUSCULOSKELETAL STRUCTURES: Bilateral L5 pars defect with grade 1 anterolisthesis of L5 over S1 and severe degenerative changes. Multilevel degenerative changes in the spine. No acute osseous process or suspicious lesion. Diffuse severe osteopenia. IMPRESSION: 1. A 9.4 cm cecal mass involving the ileocecal valve without obstruction, highly suspicious for malignancy The mass appears to be extends beyond the lumen without obstruction. 2. Enlarged locoregional lymphadenopathy in the right lower quadrant mesentery. 3. Ill-defined 1.2 cm perihepatic soft tissue nodule adjacent to the posterior inferior right hepatic lobe, indeterminate for metastatic disease. 4. A 0.3 cm hypoattenuating focus in the inferior right hepatic lobe, too small to characterize. Given cecal findings, recommend further evaluation with MRI to exclude metastasis. 5. Indeterminate 1.4 cm hypoattenuating lesion in the inferior pole right kidney. This can be further evaluated by the recommended MRI. 6. Ill-defined right iliacus muscle fluid collection measures 6.4 x 2.9 cm, with percutaneous drain catheter seen laterally. 7. Findings of fluid overload with moderate bilateral pleural effusions, small abdominopelvic ascites with mesenteric edema and severe diffuse anasarca. 8. Patchy area of groundglass opacities in the right middle lobe could be pulmonary edema. 9. Other chronic/incidental findings, as described above.. 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 Justifications for Admission Other Justification Lower extremity swelling NELLA THORNTON MD March 23, 2022 15:58
[2022-03-23 18:50] VITALS: BP 96/58
[2022-03-23 22:00] VITALS: BP 98/60
[2022-03-23] MEDS ORDERED: TOTAL PARENTERAL NUTRITION 1,446.4667 ML, AMINO ACID 15% 60 GM, DEXTROSE 70 % IN WATER ... IV SCH (22:00)
[2022-03-24 03:25] VITALS: BP 103/62
[2022-03-24 05:35] LABS: BASO # 0.1 x10^3/uL (0.0-0.2); BASO % 1 % (0-3); EOS # 0.2 x10^3/uL (0.0-0.7); EOS % 3 % (0-3); HEMATOCRIT 24.9 % (36.0-47.0); HEMOGLOBIN 8.4 g/dL (12.0-15.5); LYMPH % 15 % (24-48); MEAN CORPUSCULAR HEMOGLOBIN 30 pg (25-35); MEAN CORPUSCULAR HGB CONC 34 g/dL (31-37); MEAN CORPUSCULAR VOLUME 89 fL (79-100); MONO # 0.2 x10^3/uL (0.0-1.1); MONO % 3 % (0-9); NEUT # 5.3 x10^3/uL (1.8-7.7); NEUT % 78 % (31-73); PLATELET COUNT 305 x10^3/uL (140-400); RED CELL DISTRIBUTION WIDTH 18.9 % (11.5-14.5); WHITE BLOOD COUNT 6.8 x10^3/uL (4.0-11.0)
[2022-03-24 05:55] LABS: ALBUMIN 0.8 g/dL (3.4-5.0); ALBUMIN/GLOBULIN RATIO 0.2 (1.0-1.7); CALCIUM 6.8 mg/dL (8.5-10.1); GFR 63.9; PHOSPHORUS 4.1 mg/dL (2.6-4.7); TOTAL BILIRUBIN 0.1 mg/dL (0.2-1.0); TOTAL PROTEIN 4.6 g/dL (6.4-8.2)
[2022-03-24] MEDS: PANTOPRAZOLE IV PUSH 40 MG VIAL. IVP SCH (06:11)
[2022-03-24] MEDS: SUCRALFATE 1 GM TABLET. PO SCH ×2 (06:11→10:01)
[2022-03-24 07:00] VITALS: BP 121/70
[2022-03-24] MEDS: AMOXICILLIN/K CLAV 500/125MG TABLET. PO SCH (08:04)
[2022-03-24] MEDS: FERROUS SULFATE 325 MG TABLET. PO SCH (08:04)
[2022-03-24] MEDS: ISOSORBIDE MONONITRATE ER 30 MG TAB.ER.24H PO SCH (08:06)
[2022-03-24] MEDS: CARVEDILOL 12.5 MG TABLET. PO SCH (08:06)
--- NOTE | 2022-03-24 10:12 | PDOC ---
Date of Service: DATE: 03/24/22 TIME: 10:03 Subjective: Subjective: Denies pain and bleeding - "I don't look at it." Doesn't offer much more, says she doesn't have questions. Nursing present to turn her in bed - no reports of bleeding. Pt didn't eat breakfast. Objective: Objective: CEA 14.1. Iron profile c/w ACD in 12/2021. Vital Signs: Vital Signs Date Time Temp Pulse Resp B/P (MAP) Pulse Ox O2 Delivery O2 Flow Rate FiO2 03/24/22 08:06 65 121/70 03/24/22 08:00 Nasal Cannula 2.0 03/24/22 07:00 96.8 20 100 96.8 Labs: Laboratory Tests Test 03/23/22 11:18 03/23/22 16:23 03/24/22 00:16 03/24/22 05:14 Glucose (Fingerstick) 113 mg/dL 84 mg/dL 114 mg/dL 115 mg/dL Test 03/24/22 05:15 White Blood Count 6.8 x10^3/uL Red Blood Count 2.80 x10^6/uL Hemoglobin 8.4 g/dL Hematocrit 24.9 % Mean Corpuscular Volume 89 fL Mean Corpuscular Hemoglobin 30 pg Mean Corpuscular Hemoglobin Concent 34 g/dL Red Cell Distribution Width 18.9 % Platelet Count 305 x10^3/uL Neutrophils (%) (Auto) 78 % Lymphocytes (%) (Auto) 15 % Monocytes (%) (Auto) 3 % Eosinophils (%) (Auto) 3 % Basophils (%) (Auto) 1 % Neutrophils # (Auto) 5.3 x10^3/uL Lymphocytes # (Auto) 1.0 x10^3/uL Monocytes # (Auto) 0.2 x10^3/uL Eosinophils # (Auto) 0.2 x10^3/uL Basophils # (Auto) 0.1 x10^3/uL Sodium Level 138 mmol/L Potassium Level 4.0 mmol/L Chloride Level 110 mmol/L Carbon Dioxide Level 20 mmol/L Anion Gap 8 Blood Urea Nitrogen 29 mg/dL Creatinine 1.0 mg/dL Estimated GFR (Cockcroft-Gault) 63.9 BUN/Creatinine Ratio 29 Glucose Level 123 mg/dL Calcium Level 6.8 mg/dL Phosphorus Level 4.1 mg/dL Magnesium Level 2.0 mg/dL Total Bilirubin 0.1 mg/dL Aspartate Amino Transf (AST/SGOT) 22 U/L Alanine Aminotransferase (ALT/SGPT) 12 U/L Alkaline Phosphatase 66 U/L Total Protein 4.6 g/dL Albumin 0.8 g/dL Albumin/Globulin Ratio 0.2 Imaging: CT A/P 03/22 IMPRESSION: 1. A 9.4 cm cecal mass involving the ileocecal valve without obstruction, highly suspicious for malignancy The mass appears to be extends beyond the lumen without obstruction. 2. Enlarged locoregional lymphadenopathy in the right lower quadrant mesentery. 3. Ill-defined 1.2 cm perihepatic soft tissue nodule adjacent to the posterior inferior right hepatic lobe, indeterminate for metastatic disease. 4. A 0.3 cm hypoattenuating focus in the inferior right hepatic lobe, too small to characterize. Given cecal findings, recommend further evaluation with MRI to exclude metastasis. 5. Indeterminate 1.4 cm hypoattenuating lesion in the inferior pole right kidney. This can be further evaluated by the recommended MRI. 6. Ill-defined right iliacus muscle fluid collection measures 6.4 x 2.9 cm, with percutaneous drain catheter seen laterally. 7. Findings of fluid overload with moderate bilateral pleural effusions, small abdominopelvic ascites with mesenteric edema and severe diffuse anasarca. 8. Patchy area of groundglass opacities in the right middle lobe could be pulmonary edema. 9. Other chronic/incidental findings, as described above. PE: GEN: NAD LUNGS: clear, NC 2L HEART: RRR ABD: soft, non-tender, drain right abd EXTREM: BUE edema NEURO/PSYCH: awake and alert, flat, confused? A/P: Cecal mass - no obstruction, suspect malignancy w/ possible metastasis - no surgery or colonoscopy candidate Anorexia - on TPN Chronic anemia - stable, received IV and PO iron Abd drain in place - ?abscess, details unclear - placed at [facility] S/p IVC filter 03/12/22 -- Dr. Loera d/w family yesterday - no family present this morning. DC per primary. Justicifation of Admission Dx: Justifications for Admission: Justification of Admission Dx: Yes RUBI GANN March 24, 2022 10:12
[2022-03-24 11:00] VITALS: BP 95/55
--- NOTE | 2022-03-24 13:38 | PDOC ---
[employer] PROGRESS NOTE Date of Service DOS: DATE: 03/24/22 TIME: 13:18 Chief Complaint Chief Complaint Acute on chronic anemia - Hb 6.6 improved s/p transfusion to 8.4. Received IV and PO iron Cecal mass - no obstruction, suspect malignancy w/ possible metastasis - no surgery or colonoscopy candidate Anorexia - on TPN at home Abd drain in place - ?abscess, details unclear - placed at [facility] S/p IVC filter 03/12/22 Altered mental status, resolved. The patient is now more awake, alert, responding appropriately. Hypomagnesemia, resolved. Her most recent serum magnesium is 2.2. Bilateral pleural effusion, for which she underwent thoracentesis twice. 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 Coronary artery disease, status post coronary artery bypass grafting. Status post permanent pacemaker. History of congestive heart failure, hypertension. History of Present Illness History of Present Illness Ms Gomes is an 86-year-old female patient w/ PMHx was admitted originally with altered mental status and acute anemia to [facility] in [place], [place], transferred to [facility] for further care. 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 The patient has been extremely malnourished with severe hypoalbuminemia, for which she was started on TPN. She had a PICC line placed and an attempt was made to discharge the patient to LTAC; however, her insurance declined and therefore, a decision was made to discharge her home with home health to continue on TPN, IV antibiotics, daptomycin and po augmentin. 03/23: Seen by GI, no new recommendations, having some loose stools, abdominal drain with continued discharge. Hb 8.4 patient asking to go home soon. Has a hospital bed in [facility] per granddaughter. 03/24: Hb still 8.4, afebrile. Weak, not taking much PO. tolerating TPN well. D/w grand-daughter bedside wants to go home with home health. Continue home therapy and follow-up outpatient with [facility] for drain replacement. Vitals/I&O Vitals/I&O: Vital Signs Date Time Temp Pulse Resp B/P (MAP) Pulse Ox O2 Delivery O2 Flow Rate FiO2 03/24/22 11:00 97.6 61 20 95/55 (68) 98 Nasal Cannula 2.0 97.6 I & O 03/23/22 03/23/22 03/24/22 15:00 23:00 07:00 Intake Total 600 ml 170 ml Output Total 415 ml Balance 600 ml -245 ml Physical Exam General: Alert, Other (Mildly confused, limited historian) Heart: Regular rate, Normal S1, Normal S2 Lungs: Other Abdomen: Normal bowel sounds, Soft, No tenderness, No masses, Other (Some sort of drainage tube in the right abdomen) Extremities: No clubbing Labs Labs: Laboratory Tests Test 03/23/22 16:23 03/24/22 00:16 03/24/22 05:14 03/24/22 05:15 Glucose (Fingerstick) 84 mg/dL (70-99) 114 mg/dL (70-99) 115 mg/dL (70-99) White Blood Count 6.8 x10^3/uL (4.0-11.0) Red Blood Count 2.80 x10^6/uL (3.50-5.40) Hemoglobin 8.4 g/dL (12.0-15.5) Hematocrit 24.9 % (36.0-47.0) Mean Corpuscular Volume 89 fL (79-100) Mean Corpuscular Hemoglobin 30 pg (25-35) Mean Corpuscular Hemoglobin Concent 34 g/dL (31-37) Red Cell Distribution Width 18.9 % (11.5-14.5) Platelet Count 305 x10^3/uL (140-400) Neutrophils (%) (Auto) 78 % (31-73) Lymphocytes (%) (Auto) 15 % (24-48) Monocytes (%) (Auto) 3 % (0-9) Eosinophils (%) (Auto) 3 % (0-3) Basophils (%) (Auto) 1 % (0-3) Neutrophils # (Auto) 5.3 x10^3/uL (1.8-7.7) Lymphocytes # (Auto) 1.0 x10^3/uL (1.0-4.8) Monocytes # (Auto) 0.2 x10^3/uL (0.0-1.1) Eosinophils # (Auto) 0.2 x10^3/uL (0.0-0.7) Basophils # (Auto) 0.1 x10^3/uL (0.0-0.2) Sodium Level 138 mmol/L (136-145) Potassium Level 4.0 mmol/L (3.5-5.1) Chloride Level 110 mmol/L (98-107) Carbon Dioxide Level 20 mmol/L (21-32) Anion Gap 8 (6-14) Blood Urea Nitrogen 29 mg/dL (7-20) Creatinine 1.0 mg/dL (0.6-1.0) Estimated GFR (Cockcroft-Gault) 63.9 BUN/Creatinine Ratio 29 (6-20) Glucose Level 123 mg/dL (70-99) Calcium Level 6.8 mg/dL (8.5-10.1) Phosphorus Level 4.1 mg/dL (2.6-4.7) Magnesium Level 2.0 mg/dL (1.8-2.4) Total Bilirubin 0.1 mg/dL (0.2-1.0) Aspartate Amino Transf (AST/SGOT) 22 U/L (15-37) Alanine Aminotransferase (ALT/SGPT) 12 U/L (14-59) Alkaline Phosphatase 66 U/L (46-116) Total Protein 4.6 g/dL (6.4-8.2) Albumin 0.8 g/dL (3.4-5.0) Albumin/Globulin Ratio 0.2 (1.0-1.7) Test 03/24/22 11:26 Glucose (Fingerstick) 124 mg/dL (70-99) Comment Review of Relevant I have reviewed the following items rob (where applicable) has been applied. Medications: Current Medications Medications (Trade) Dose Ordered Sig/Mar Route PRN Reason Start Time Stop Time Status Last Admin Dose Admin Sodium Chloride 90 meq/Potassium Chloride 50 meq/ Potassium Phosphate 13.6 mmol/Magnesium Sulfate 10 meq/ Multivitamins 10 ml/Zinc/Copper/ Manganese/ Selenium 1 ml/ Total Parenteral Nutrition/Amino Acids/Dextrose/ Fat Emulsion Intravenous 1,512 ml @ 63 mls/hr TPN CONT IV 03/23/22 22:00 03/24/22 21:59 03/23/22 22:07 Iron Sucrose 200 mg/Sodium Chloride 110 ml @ 55 mls/hr 1X ONCE IV 03/23/22 14:00 03/23/22 15:59 DC 03/23/22 14:17 Images: TPN: AMINO ACIDS: 60 gm DEXTROSE: 195 gm LIPIDS: 20 gm SODIUM CHLORIDE: 90 mEq SODIUM ACETATE: mEq SODIUM PHOSPHATE: mmol POTASSIUM CHLORIDE: 50 mEq POTASSIUM ACETATE: mEq POTASSIUM PHOSPHATE: 13.6 mmol MAGNESIUM: 10 mEq CALCIUM: mEq INSULIN: units MULTIPLE VITAMIN: 10 ml TRACE ELEMENTS: 1 ml(s) Justifications for Admission Other Justification Lower extremity swelling ADIA ANTHONY MD March 24, 2022 13:38
[2022-03-24] MEDS ORDERED: AMOX1TAB10 PO (13:46)
[2022-03-24] MEDS ORDERED: FLUC100T6 PO (13:46)
--- NOTE | 2022-03-24 13:57 | SNU/HH DC ---
DISCHARGE WITH HOME HEALTH DISCHARGE INFORMATION: Discharge Date: March 24, 2022 Final Diagnosis: Acute anemia Condition on Discharge: Stable CODE STATUS: Code Status: DNR/DNI HOME HEALTH: Face to Face: I certify this patient is under my care and that I, or a nurse practitioner or physician's medical assistant float working with me, had a face to face encounter that meets the physician face to face encounter requirements with this patient on []. Medical Complications: CHF Fdc For: IV Infusion Therapy, Ostomy Care, Urinary Catheter Care, extension associate For Eval/Treatment: Yes Physical Therapy For: Evalulation/Treatment Occupational Therapy For: Evaluation/Treatment Pt Meets Homebound Status: Fatigue w/ amb., Limited distance walking POST DISCHARGE ORDERS: Activity Instructions for Disc: Activity as tolerated Weight Bearing Status after Di: Full weight bearing DIET AFTER DISCHARGE: Regular CHECKS AFTER DISCHARGE: Checks after discharge: Check blood press - daily FOLLOW-UP: Follow Up With: [facility] interventional radiology DC TO SNF LABS: CBC Q 3 days, CMP, triglycerides weekly Additional Instructions: TPN: TPN: AMINO ACIDS: 60 gm DEXTROSE: 195 gm LIPIDS: 20 gm SODIUM CHLORIDE: 90 mEq SODIUM ACETATE: mEq SODIUM PHOSPHATE: mmol POTASSIUM CHLORIDE: 50 mEq POTASSIUM ACETATE: mEq POTASSIUM PHOSPHATE: 13.6 mmol MAGNESIUM: 10 mEq CALCIUM: mEq INSULIN: units MULTIPLE VITAMIN: 10 ml TRACE ELEMENTS: 1 ml(s) TREATMENT/EQUIPMENT ORDERS: Discharge Respiratory Equipmen: Oxygen CERTIFICATION STATEMENT: Certification Statement: Certification Statement: Based on the above finding, I certify that this patient is confined to the home and needs intermittent residential care, physical therapy and/or speech therapy, or continues to need occupational therapy.~ This patient is under my care, and I have initiated the establishment of the plan of care.~ This patient will be followed by myself or a community physician who will periodically review the plan of care. Home Meds Active Scripts Fluconazole (FLUCONAZOLE) 100 Mg Tablet, 1 TAB PO DAILY for UTI for 7 Days, #7 TAB Prov:ADIA ANTHONY MD 03/24/22 Amoxicillin/Potassium Clav (AMOX TR-K CLV 500-125 MG TAB) 1 Each Tablet, 1 TAB PO BID for Cellulitis for 5 Days, #10 TAB Prov:ADIA ANTHONY MD 03/24/22 Reported Medications Isosorbide Mononitrate (ISOSORBIDE MONONITRATE ER) 30 Mg Tab.er.24h, 1 TAB PO DAILY for prevent chest pain, #30 TAB 5 Refills 12/24/21 Pantoprazole Sodium (PROTONIX ) 40 Mg Tablet.dr, 40 MG PO DAILYAC for GERD, TAB 12/24/21 Sucralfate (CARAFATE) 1 Gm Tablet, 1 TAB PO QIDACHS for PUD for 30 Days, #120 TAB 0 Refills 12/24/21 Ferrous Sulfate (FERROUS SULFATE) 325 Mg Tablet, 1 TAB PO DAILY for anemia for 60 Days, #60 TAB 3 Refills 12/24/21 Ubidecarenone (COENZYME Q10) 200 Mg Capsule, 200 MG PO DAILY 04/13/14 Nifedipine (NIFEDIPINE ER) 60 Mg Tablet.er, 60 MG PO DAILY, TAB.SR 04/13/14 Carvedilol (CARVEDILOL) 25 Mg Tablet, 25 MG PO BID AC for Blood Pressure, TAB 04/13/14 ADIA ANTHONY MD March 24, 2022 13:57
--- NOTE | 2022-03-24 14:45 | NUR ---
SS following for discharge planning. SS reviewed pt chart and discussed with pt RN. Pt is from home with granddaughter and is currently on room air. Pt has home TPN through [facility], ; fax [phone]. Pt is current on services with [facility], ; fax [phone]. GI following. Discharge orders received for home with home healthcare. RN called verbal order to [facility] to restart home TPN. Discharge orders and referral sent to [facility]. Pt's granddaughter requested stretcher transport to home. Pt will discharge today and return to home at 1600 via [facility] ambulance, . Pt's RN notified.
[2022-03-24 15:00] VITALS: BP 100/57
[2022-03-24] MEDS: TPN PER PHARMACY MC PRN (15:48)
--- NOTE | 2022-03-24 16:28 | NUR ---
Discharge Note: REID RUIZ J6 [facility] Discharge instructions and discharge home medications reviewed with Patient and a copy given. All questions have been answered and understanding verbalized. The following instructions and handouts were given: Follow up and new medications Discontinued lines and drains: monitor tech removed, PICC line left in place Patient discharged to home with home health by [facility]
--- NOTE | 2022-03-24 18:48 | PDOC3 ---
Discharge Summary Visit Information Date of Admission: March 22, 2022 Date of Discharge: March 24, 2022 Admitting Diagnosis: Acute blood loss anemia Final Diagnosis GI bleed Brief Hospital Course Allergies Allergies Coded Allergies Type Severity Reaction Last Updated Verified ceftriaxone Allergy Intermediate Rash 12/24/21 Yes Vital Signs Vital Signs Date Time Temp Pulse Resp B/P (MAP) Pulse Ox O2 Delivery O2 Flow Rate FiO2 03/24/22 15:00 97.6 67 20 100/57 (71) 98 Room Air 97.6 03/24/22 11:00 2.0 Lab Results Laboratory Tests Test 03/22/22 23:59 03/23/22 05:10 03/23/22 06:02 03/23/22 11:18 Glucose (Fingerstick) 112 mg/dL (70-99) 127 mg/dL (70-99) 113 mg/dL (70-99) White Blood Count 7.8 x10^3/uL (4.0-11.0) Red Blood Count 2.88 x10^6/uL (3.50-5.40) Hemoglobin 8.4 g/dL (12.0-15.5) Hematocrit 25.1 % (36.0-47.0) Mean Corpuscular Volume 87 fL (79-100) Mean Corpuscular Hemoglobin 29 pg (25-35) Mean Corpuscular Hemoglobin Concent 34 g/dL (31-37) Red Cell Distribution Width 17.4 % (11.5-14.5) Platelet Count 290 x10^3/uL (140-400) Neutrophils (%) (Auto) 76 % (31-73) Lymphocytes (%) (Auto) 19 % (24-48) Monocytes (%) (Auto) 3 % (0-9) Eosinophils (%) (Auto) 2 % (0-3) Basophils (%) (Auto) 1 % (0-3) Neutrophils # (Auto) 5.9 x10^3/uL (1.8-7.7) Lymphocytes # (Auto) 1.4 x10^3/uL (1.0-4.8) Monocytes # (Auto) 0.2 x10^3/uL (0.0-1.1) Eosinophils # (Auto) 0.1 x10^3/uL (0.0-0.7) Basophils # (Auto) 0.1 x10^3/uL (0.0-0.2) Segmented Neutrophils % 79 % (35-66) Band Neutrophils % 4 % (0-9) Lymphocytes % 13 % (24-48) Monocytes % 2 % (0-10) Eosinophils % 2 % (0-5) Platelet Estimate Adequate (ADEQUATE) Sodium Level 140 mmol/L (136-145) Potassium Level 4.0 mmol/L (3.5-5.1) Chloride Level 109 mmol/L (98-107) Carbon Dioxide Level 21 mmol/L (21-32) Anion Gap 10 (6-14) Blood Urea Nitrogen 32 mg/dL (7-20) Creatinine 1.0 mg/dL (0.6-1.0) Estimated GFR (Cockcroft-Gault) 63.9 BUN/Creatinine Ratio 32 (6-20) Glucose Level 117 mg/dL (70-99) Calcium Level 7.1 mg/dL (8.5-10.1) Phosphorus Level 4.4 mg/dL (2.6-4.7) Magnesium Level 2.0 mg/dL (1.8-2.4) Total Bilirubin 0.1 mg/dL (0.2-1.0) Aspartate Amino Transf (AST/SGOT) 29 U/L (15-37) Alanine Aminotransferase (ALT/SGPT) 20 U/L (14-59) Alkaline Phosphatase 73 U/L (46-116) Total Protein 4.5 g/dL (6.4-8.2) Albumin 0.9 g/dL (3.4-5.0) Albumin/Globulin Ratio 0.3 (1.0-1.7) Test 03/23/22 16:23 03/24/22 00:16 03/24/22 05:14 03/24/22 05:15 Glucose (Fingerstick) 84 mg/dL (70-99) 114 mg/dL (70-99) 115 mg/dL (70-99) White Blood Count 6.8 x10^3/uL (4.0-11.0) Red Blood Count 2.80 x10^6/uL (3.50-5.40) Hemoglobin 8.4 g/dL (12.0-15.5) Hematocrit 24.9 % (36.0-47.0) Mean Corpuscular Volume 89 fL (79-100) Mean Corpuscular Hemoglobin 30 pg (25-35) Mean Corpuscular Hemoglobin Concent 34 g/dL (31-37) Red Cell Distribution Width 18.9 % (11.5-14.5) Platelet Count 305 x10^3/uL (140-400) Neutrophils (%) (Auto) 78 % (31-73) Lymphocytes (%) (Auto) 15 % (24-48) Monocytes (%) (Auto) 3 % (0-9) Eosinophils (%) (Auto) 3 % (0-3) Basophils (%) (Auto) 1 % (0-3) Neutrophils # (Auto) 5.3 x10^3/uL (1.8-7.7) Lymphocytes # (Auto) 1.0 x10^3/uL (1.0-4.8) Monocytes # (Auto) 0.2 x10^3/uL (0.0-1.1) Eosinophils # (Auto) 0.2 x10^3/uL (0.0-0.7) Basophils # (Auto) 0.1 x10^3/uL (0.0-0.2) Sodium Level 138 mmol/L (136-145) Potassium Level 4.0 mmol/L (3.5-5.1) Chloride Level 110 mmol/L (98-107) Carbon Dioxide Level 20 mmol/L (21-32) Anion Gap 8 (6-14) Blood Urea Nitrogen 29 mg/dL (7-20) Creatinine 1.0 mg/dL (0.6-1.0) Estimated GFR (Cockcroft-Gault) 63.9 BUN/Creatinine Ratio 29 (6-20) Glucose Level 123 mg/dL (70-99) Calcium Level 6.8 mg/dL (8.5-10.1) Phosphorus Level 4.1 mg/dL (2.6-4.7) Magnesium Level 2.0 mg/dL (1.8-2.4) Total Bilirubin 0.1 mg/dL (0.2-1.0) Aspartate Amino Transf (AST/SGOT) 22 U/L (15-37) Alanine Aminotransferase (ALT/SGPT) 12 U/L (14-59) Alkaline Phosphatase 66 U/L (46-116) Total Protein 4.6 g/dL (6.4-8.2) Albumin 0.8 g/dL (3.4-5.0) Albumin/Globulin Ratio 0.2 (1.0-1.7) Test 03/24/22 11:26 Glucose (Fingerstick) 124 mg/dL (70-99) Laboratory Tests Test 03/24/22 00:16 03/24/22 05:14 03/24/22 05:15 03/24/22 11:26 Glucose (Fingerstick) 114 mg/dL (70-99) 115 mg/dL (70-99) 124 mg/dL (70-99) White Blood Count 6.8 x10^3/uL (4.0-11.0) Red Blood Count 2.80 x10^6/uL (3.50-5.40) Hemoglobin 8.4 g/dL (12.0-15.5) Hematocrit 24.9 % (36.0-47.0) Mean Corpuscular Volume 89 fL (79-100) Mean Corpuscular Hemoglobin 30 pg (25-35) Mean Corpuscular Hemoglobin Concent 34 g/dL (31-37) Red Cell Distribution Width 18.9 % (11.5-14.5) Platelet Count 305 x10^3/uL (140-400) Neutrophils (%) (Auto) 78 % (31-73) Lymphocytes (%) (Auto) 15 % (24-48) Monocytes (%) (Auto) 3 % (0-9) Eosinophils (%) (Auto) 3 % (0-3) Basophils (%) (Auto) 1 % (0-3) Neutrophils # (Auto) 5.3 x10^3/uL (1.8-7.7) Lymphocytes # (Auto) 1.0 x10^3/uL (1.0-4.8) Monocytes # (Auto) 0.2 x10^3/uL (0.0-1.1) Eosinophils # (Auto) 0.2 x10^3/uL (0.0-0.7) Basophils # (Auto) 0.1 x10^3/uL (0.0-0.2) Sodium Level 138 mmol/L (136-145) Potassium Level 4.0 mmol/L (3.5-5.1) Chloride Level 110 mmol/L (98-107) Carbon Dioxide Level 20 mmol/L (21-32) Anion Gap 8 (6-14) Blood Urea Nitrogen 29 mg/dL (7-20) Creatinine 1.0 mg/dL (0.6-1.0) Estimated GFR (Cockcroft-Gault) 63.9 BUN/Creatinine Ratio 29 (6-20) Glucose Level 123 mg/dL (70-99) Calcium Level 6.8 mg/dL (8.5-10.1) Phosphorus Level 4.1 mg/dL (2.6-4.7) Magnesium Level 2.0 mg/dL (1.8-2.4) Total Bilirubin 0.1 mg/dL (0.2-1.0) Aspartate Amino Transf (AST/SGOT) 22 U/L (15-37) Alanine Aminotransferase (ALT/SGPT) 12 U/L (14-59) Alkaline Phosphatase 66 U/L (46-116) Total Protein 4.6 g/dL (6.4-8.2) Albumin 0.8 g/dL (3.4-5.0) Albumin/Globulin Ratio 0.2 (1.0-1.7) Brief Hospital Course Ms Gomes is an 86-year-old female patient w/ PMHx was admitted originally with altered mental status and acute anemia to [facility] in [place], [place], transferred to [facility] for further care. 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 The patient has been extremely malnourished with severe hypoalbuminemia, for which she was star shannen on TPN. She had a PICC line placed and an attempt was made to discharge the patient to LTAC; however, her insurance declined and therefore, a decision was made to discharge her home with home health to continue on TPN, IV antibiotics, daptomycin and po augmentin. 03/23: Seen by GI, no new recommendations, having some loose stools, abdominal drain with continued discharge. Hb 8.4 patient asking to go home soon. Has a hospital bed in [facility] per granddaughter. 03/24: Hb still 8.4, afebrile. Weak, not taking much PO. tolerating TPN well. D/w grand-daughter bedside wants to go home with home health. Continue home therapy and follow-up outpatient with [facility] for drain replacement. Unable to previously complete colonoscopy and patient and grand-daughter do not wish for further investigation Consults: GI Problem list: Acute on chronic anemia - Hb 6.6 improved s/p transfusion to 8.4. 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 The patient is now more awake, alert, responding appropriately. Hypomagnesemia, resolved. Her most recent serum magnesium is 2.2. Bilateral pleural effusion, for which she underwent thoracentesis twice. 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 Coronary artery disease, status post coronary artery bypass grafting. Status post permanent pacemaker. History of congestive heart failure, hypertension. Greater than 30 minutes spent on d/c home with home health Discharge Information Condition at Discharge: Stable Follow Up: Weeks (1) Disposition/Orders: D/C to Home w/ HH Scheduled Amoxicillin/Potassium Clav (Amox Tr-K Clv 500-125 Mg Tab) 1 Each Tablet, 1 TAB PO BID for Cellulitis for 5 Days, #10 Prescribed by: ADIA ANTHONY MD on 03/24/22 1346 Carvedilol (Carvedilol) 25 Mg Tablet, 25 MG PO BID AC for Blood Pressure, (Reported) Entered as Reported by: DISHA RIVERA on 04/13/14 0915 Last Action: Converted on 03/22/22 111 by NELLA THORNTON Ferrous Sulfate (Ferrous Sulfate) 325 Mg Tablet, 1 TAB PO DAILY for anemia for 60 Days, #60 Ref 3 (Reported) Entered as Reported by: SHAHANA JIMENEZ on 12/24/21 0120 Last Action: Continued on 03/22/22 111 by NELLA THORNTON Fluconazole (Fluconazole) 100 Mg Tablet, 1 TAB PO DAILY for UTI for 7 Days, #7 Prescribed by: ADIA ANTHONY MD on 03/24/22 1346 Isosorbide Mononitrate (Isosorbide Mononitrate Er) 30 Mg Tab.er.24h, 1 TAB PO DAILY for prevent chest pain, #30 Ref 5 (Reported) Entered as Reported by: SHAHANA JIMENEZ on 12/24/21121 Last Action: Continued on 03/22/221111 by NELLA THORNTON Nifedipine (Nifedipine Er) 60 Mg Tablet.er, 60 MG PO DAILY, (Reported) Entered as Reported by: DISHA RIVERA on 04/13/14917 Last Action: Converted on 03/22/221111 by NELLA THORNTON Pantoprazole Sodium (Protonix ) 40 Mg Tablet.dr, 40 MG PO DAILYAC for GERD, (Reported) Entered as Reported by: SHAHANA JIMENEZ on 12/24/21119 Last Action: Continued on 03/22/221111 by NELLA THORNTON Sucralfate (Carafate) 1 Gm Tablet, 1 TAB PO QIDACHS for PUD for 30 Days, #120 Ref 0 (Reported) Entered as Reported by: SHAHANA JIMENEZ on 12/24/21119 Last Action: Continued on 03/22/221111 by NELLA THORNTON Ubidecarenone (Coenzyme Q10) 200 Mg Capsule, 200 MG PO DAILY, (Reported) Entered as Reported by: DISHA RIVERA on 04/13/14917 Justicifation of Admission Dx: Justifications for Admission: Justification of Admission Dx: Yes ADIA ANTHONY MD March 24, 2022 18:48
[2022-03-24] MEDS ORDERED: DEXTROSE 70% IV SCH (22:00)
[2022-03-24] MEDS ORDERED: [UNRECOGNIZED DRUG - OTHER] IV SCH (22:00)
[2022-03-24] MEDS ORDERED: TOTAL PARENTERAL NUTRITION IV SCH (22:00)
[2022-03-24] MEDS ORDERED: AMINO ACID IV SCH (22:00)
== END 2022-03-24 16:17 | disposition home health service (06) | DRG 377 ==
LOC: 6 SOUTH 02:30
PROVIDERS: ADMIT Student in an Organized Health Care Education/Training Program; ATTEND Student in an Organized Health Care Education/Training Program
PROC: 02HV33Z Insertion of Infusion Device into Superior Vena Cava, Percutaneous Approach (ICD-10-PCS; principal; 2022-03-22)
DX: K92.2 Gastrointestinal hemorrhage, unspecified (principal); E43 Unspecified severe protein-calorie malnutrition; K68.12 Psoas muscle abscess; C18.9 Malignant neoplasm of colon, unspecified; C79.9 Secondary malignant neoplasm of unspecified site; D62 Acute posthemorrhagic anemia; I50.32 Chronic diastolic (congestive) heart failure; R18.8 Other ascites; E83.42 Hypomagnesemia; E88.09 Other disorders of plasma-protein metabolism, not elsewhere classified; I11.0 Hypertensive heart disease with heart failure; I25.10 Atherosclerotic heart disease of native coronary artery without angina pectoris; R62.7 Adult failure to thrive; Z66 Do not resuscitate; Z82.49 Family history of ischemic heart disease and other diseases of the circulatory system; Z86.16 Personal history of COVID-19; Z86.711 Personal history of pulmonary embolism; Z86.718 Personal history of other venous thrombosis and embolism; Z95.0 Presence of cardiac pacemaker; Z95.1 Presence of aortocoronary bypass graft; Z95.828 Presence of other vascular implants and grafts; K21.9 Gastro-esophageal reflux disease without esophagitis
CPT/HCPCS: 36415; 74177; 80053; 82378; 82962; 83735; 84100; 84478; 85007; 85025; 94760; C9113; J1756; J3475; J3480; J3490; Q9966; Q9967; G0378